=== PATIENT | male | born 1955 | race Caucasian/White ===

== ENCOUNTER → 2018-02-03 11:37 | Outpatient (REF) | payer BC, SELFPAY | LOC: LBN 11:37 | PROVIDERS: PCP Nurse Practitioner Family; Visit Provider Nurse Practitioner Family | DX: R19.7 Diarrhea, unspecified (principal) | CPT/HCPCS: 87329 ==

== ENCOUNTER 2018-03-18 08:01 | Outpatient (CLI) | payer BC, SELFPAY ==
[2018-03-18 09:43] LABS: Anion Gap 9.6 mmol/L (3-11); BUN 11 mg/dL (7-18); CO2 25.4 mmol/L (21.0-32.0); CREATININE 0.94 mg/dL (0.70-1.30); Calcium 8.3 mg/dL (8.5-10.1); Chloride 103 mmol/L (98-107); Cholesterol 231 mg/dL (50-200); Glucose 113 mg/dL (70-100); HDL Cholesterol 50 mg/dL (40-60); LDL CHOLESTEROL 148 mg/dL (<100); Potassium 4.3 mmol/L (3.5-5.1); Sodium 138 mmol/L (136-145); Triglyceride 287 mg/dL (30-150)
[2018-03-19 09:53] LABS: HIV-1/2 Ag & Ab Screen Negative (NEGAT)
[2018-03-21 13:19] LABS: Hepatitis C Ab w Rflx HCV PCR Negative (NEGAT)
== END 2018-03-18 08:21 ==
PROVIDERS: PCP Nurse Practitioner Family; Visit Provider Nurse Practitioner Family
DX: Z13.220 Encounter for screening for lipoid disorders (principal); Z13.228 Encounter for screening for other metabolic disorders; Z11.59 Encounter for screening for other viral diseases; Z11.4 Encounter for screening for human immunodeficiency virus [HIV]
CPT/HCPCS: 36415; 80048; 80061; 83721; 86803; 87389

== ENCOUNTER 2019-11-01 02:58 | Outpatient (CLI) | payer OTHER, SELFPAY ==
[2019-11-01 09:04] LABS: Bilirubin Negative (Negative); Blood Negative (Negative); Clarity Clear (Clear); Glucose Negative (Negative); Ketones Negative (Negative); Leukocyte Esterase Negative (Negative); Nitrite Negative (Negative); Urobilinogen 0.2 EU/dL (Up TO 0.2)
[2019-11-01 09:05] LABS: Abs Immature Grans 0.04 k/cumm (0.0-0.09); Absolute Basophil Count 0.04 k/cumm (0.0-0.2); Absolute Eosinophil Count 0.23 k/cumm (0.0-0.7); Absolute Lymphocyte Count 2.12 k/cumm (1.2-3.4); Absolute Monocyte Count 0.84 k/cumm (0.11-0.7); Absolute Neutrophil Count 3.26 k/cumm (1.2-6.7); Basophils % 0.6; Eosinophils % 3.5; HCT 48.1 % (40.0-50.0); HGB 16.4 g/dL (13.5-17.5); Immature Grans % 0.6 %; Lymphocytes % 32.5; Mean Corp. HGB Concentration 34.1 g/dL (32.0-36.0); Mean Corpuscular Hemoglobin 32.8 pg (27.0-33.0); Mean Corpuscular Volume 96.2 fL (80-95); Mean Platelet Volume 9.5 fL (8.0-11.0); Monocytes % 12.9; Neutrophils % 49.9; Platelet Count 250 x1000/uL (130-400); RBC Distribution Width 12.7 % (11.8-14.1); White Blood Cell Count 6.53 k/cumm (4.4-10.8)
[2019-11-01 09:26] LABS: Hemoglobin A1C 5.6 % (3.8-5.6)
[2019-11-01 09:55] LABS: ALT 74 U/L (16-63); AST 48 U/L (15-37); Albumin 4.2 g/dL (3.4-5.0); Alkaline Phosphatase 85 U/L (46-116); Anion Gap 9.9 mmol/L (3-11); BUN 9 mg/dL (7-18); Bilirubin, Total 0.7 mg/dL (0.2-1.0); CO2 30.1 mmol/L (21.0-32.0); CREATININE 1.02 mg/dL (0.70-1.30); Calcium 9.2 mg/dL (8.5-10.1); Calculated LDL 146 mg/dL (<100); Chloride 107 mmol/L (98-107); Cholesterol 225 mg/dL (<200); Glucose 113 mg/dL (74-106); HDL Cholesterol 47 mg/dL (40-60); Potassium 5.4 mmol/L (3.5-5.1); Sodium 147 mmol/L (136-145); TSH (W/Ref FT4) 1.76 uIU/mL (0.36-3.74); Total Protein 6.9 g/dL (6.4-8.2); Triglyceride 161 mg/dL (<150); Vitamin B12 198 pg/mL (193-986)
== END 2019-11-01 03:18 ==
PROVIDERS: PCP Nurse Practitioner Family; Visit Provider Nurse Practitioner Adult Health
DX: R73.01 Impaired fasting glucose (principal); E78.5 Hyperlipidemia, unspecified; R41.3 Other amnesia
CPT/HCPCS: 36415; 80053; 80061; 81003; 82607; 83036; 84443; 85025

== ENCOUNTER 2020-03-13 03:26 | Outpatient (CLI) | payer OTHER, SELFPAY ==
[2020-03-13 12:52] LABS: HCT 51.4 % (40.0-50.0); HGB 17.5 g/dL (13.5-17.5); MCH 32.3 pg (27.0-33.0); MPV 9.5 fL (8.0-11.0); Platelet Count 195 10^3/uL (130-400); RBC 5.41 10^6/uL (4.36-5.78); RDW 12.4 % (11.8-14.1); RDW-SD 43.4 fL; WBC 6.91 10^3/uL (4.4-10.8)
[2020-03-13 13:13] LABS: ALT 67 U/L (16-63); AST 50 U/L (15-37); Albumin 4.2 g/dL (3.4-5.0); Alkaline Phosphatase 88 U/L (46-116); Anion Gap 8.3 mmol/L (3-11); BUN 6 mg/dL (7-18); Bilirubin, Total 1.1 mg/dL (0.2-1.0); CO2 27.7 mmol/L (21.0-32.0); CREATININE 0.89 mg/dL (0.70-1.30); Calculated LDL 140 mg/dL (<100); Chloride 101 mmol/L (98-107); Cholesterol 221 mg/dL (<200); Glucose 112 mg/dL (74-106); HDL Cholesterol 46 mg/dL (40-60); Potassium 4.4 mmol/L (3.5-5.1); Sodium 137 mmol/L (136-145); Total Protein 6.9 g/dL (6.4-8.2); Triglyceride 178 mg/dL (<150)
== END 2020-03-13 03:46 ==
PROVIDERS: PCP Nurse Practitioner Adult Health; Visit Provider Nurse Practitioner Adult Health
DX: E78.5 Hyperlipidemia, unspecified (principal); E87.0 Hyperosmolality and hypernatremia; E87.5 Hyperkalemia; R79.89 Other specified abnormal findings of blood chemistry; R41.3 Other amnesia
CPT/HCPCS: 36415; 80053; 80061; 85027

== ENCOUNTER 2020-07-16 10:25 | Outpatient (CLI) | payer OTHER, SELFPAY ==
--- NOTE | 2020-07-16 10:15 | DI.RAD_ITS ---
EXAM: XR SHOULDER RT COMPLETE 2+V CLINICAL HISTORY: right shoulder pain. TECHNIQUE: 2D digital imaging was performed. COMPARISON: No exams were available for comparison FINDINGS: BONES: No acute fracture is present. No bony destructive lesion is seen. JOINTS: No dislocation present. There is moderate narrowing of the glenohumeral joint and mild spurri ng from the inferior humeral head and margin of the glenoid. AC joint is not optimally profiled. SOFT TISSUE: Normal. IMPRESSION: Moderate degenerative changes of the glenohumeral joint. DATA REPOSITORY: RADIATION DOSE DELIVERED:
== END 2020-07-16 10:45 ==
PROVIDERS: PCP Nurse Practitioner Adult Health; Referring Provider Nurse Practitioner Adult Health; Visit Provider Physician Assistant
DX: M19.011 Primary osteoarthritis, right shoulder (principal)
CPT/HCPCS: 73030

== ENCOUNTER 2020-08-02 02:42 | Outpatient (CLI) | payer OTHER, SELFPAY ==
--- NOTE | 2020-08-02 07:45 | DI.MRI_ITS ---
EXAM: MR UPPER JOINT RT WO CLINICAL HISTORY: possible RTC tear,BURSITIS,TENDONITIS,TENDONINOSIS,ARTHRITIS. TECHNIQUE: Multiplanar multisequence MRI was performed. COMPARISON: None. FINDINGS: Bones: There is no fracture or contusion pattern. There are multiple subchondral cysts in the glenoid, grea ter posteriorly and inferiorly. The acromioclavicular joint shows mild inferior spurring. There is a mild amount fluid in the subacromial subdeltoid bursa. There is a small glenohumeral joint effusi on. A subcoracoid effusion is present. Glenohumeral joint: There is joint space narrowing with cartilage thinning extending down to bone.. Rotator Cuff: There is no muscle atrophy. The supra and infraspinatus are intact which show mild thickening and edema..The subscapularis and te res minor are normal. Labrum and biceps anchor: The biceps tendon is located. The anchor is well maintained. The labrum shows degenerative changes. IMPRESSION: Severe degenerative changes of the glenohumeral joint. Supraspinatus and infraspinatus tendinosis. DATA REPOSITORY:
== END 2020-08-02 02:43 ==
LOC: DI 02:42
PROVIDERS: PCP Nurse Practitioner Adult Health; Visit Provider Student in an Organized Health Care Education/Training Program
DX: M19.011 Primary osteoarthritis, right shoulder (principal); M75.51 Bursitis of right shoulder; M67.813 Other specified disorders of tendon, right shoulder
CPT/HCPCS: 73221

== ENCOUNTER 2021-01-16 03:37 | Outpatient (CLI) | payer OTHER, SELFPAY ==
--- NOTE | 2021-01-16 09:00 | DI.RAD_ITS ---
Exam(s) RF JOINT INJECTION FLUORO GUID EXAM: RF JOINT INJECTION FLUORO GUID CLINICAL HISTORY: R SHOULDER INJ UNDER FLUORO,RTC TENDINITIS,PAIN,ARTHRITIS GH JOINT,M25.511 TECHNIQUE: Fluoroscopy provided. Radiologist not present. CONTRAST MATERIAL: None COMPARISON: No exams were available for comparison FINDINGS: Fluoroscopy was provided for Dr. Aparicio during right shoulder injection. Submitted image(s) reveal needle placement at the superior aspect of the medial humeral head. Intra- articular contrast noted. Please refer to the procedure report for complete details. Cumulative Dose: bryn Saeed=1.12 mGy IMPRESSION: RADIATION DOSE DELIVERED:
--- NOTE | 2021-01-16 14:52 | W.PROCNOTE ---
Date of service: 01/16/21 Time of Service: 14:52 Procedure Note Date of procedure: 01/16/21 Procedure: Right Shoulder Injection Surgeon/Proceduralist/Physician: Samuel Aparicio Procedure Diagnosis: Right Glenohumeral Arthritis Procedure Indications: Nael has had persistent pain of the RIGHT shoulder. Noninvasive measures have been tried. To serve as both diagnostic and therapeutic, an injection under fluoroscopy was recommended. I had discussed the risks of the procedure and the patient elected to proceed. Procedure Description: Nael was greeted in the flouroscopy room. The correct side was identified and the consent was reviewed with the patient and signed. The patient was then placed in the supine position on the fluoroscopy table. The RIGHT shoulder was then prepped with Chloraprep. The anterior injection starting point was identiifed by bony landmarks and fluoroscopy. The skin and soft tissue in the tract of the injection was anesthetized with 1% Lidocaine. A spinal needle was then inserted deep into the shoulder joint at the level of the recess between the glenoid and superior humeral head. A small amount of Omnipaque solution was injected to confirm intraarticular placement. Once confirmed, the shoulder was injected with 4cc of 0.5% Bupivicaine and 80mg of Depo-Medrol. A bandaid was placed on the injection site. The patient tolerated the procedure well and noted improvement in pre-injection pain.
[2021-01-16] MEDS: Bupivacaine 0.5% Pres-Free 10 ML VIAL IJ (15:03)
[2021-01-16] MEDS: Omnipaque 300 MG/ML 10 ML BTL IJ (15:04)
[2021-01-16] MEDS: methylPREDNISolone ACETATE 80 MG/ML VIAL IM (15:04)
== END 2021-01-16 03:57 ==
PROVIDERS: PCP Nurse Practitioner Adult Health; Visit Provider Student in an Organized Health Care Education/Training Program
DX: M19.011 Primary osteoarthritis, right shoulder (principal); M25.511 Pain in right shoulder
CPT/HCPCS: 20610; 77002; J1040

== ENCOUNTER 2021-01-16 15:39 | Outpatient (CLI) | payer OTHER, SELFPAY ==
--- NOTE | 2021-01-16 14:30 | DI.RAD_ITS ---
Exam(s) XR TOE LT THIRD EXAM: XR TOE LT THIRD CLINICAL HISTORY: pain s/p injury about 3 days ago, lt toe pain, M79.675. TECHNIQUE: 2D digital imaging was performed. COMPARISON: No exams were available for comparison FINDINGS: There is no oblique nondisplaced fracture on the medial aspect of base of the middle phalanx of the 3 rd toe. IMPRESSION: DATA REPOSITORY: RADIATION DOSE DELIVERED:
== END 2021-01-16 15:59 ==
PROVIDERS: PCP Nurse Practitioner Adult Health; Visit Provider Nurse Practitioner
DX: G89.11 Acute pain due to trauma (principal); M79.675 Pain in left toe(s); W22.8XXA Striking against or struck by other objects, initial encounter; Y99.8 Other external cause status
CPT/HCPCS: 73660

== ENCOUNTER 2021-02-07 03:52 | Outpatient (CLI) | payer OTHER, SELFPAY ==
--- NOTE | 2021-02-07 07:00 | DI.RAD_ITS ---
Exam(s) RF BARIUM SWALLOW EXAM: RF BARIUM SWALLOW CLINICAL HISTORY: dysphagia,PHARYNGOSOPHAGEAL,R13.14 TECHNIQUE: 2D and realtime digital imaging was performed. CONTRAST MATERIAL: Oral barium Oral water soluble contrast was administered. COMPARISON: CR CHEST 2 VIEWS PA,LAT from 10/15/2016 CR CHEST 2 VIEWS PA,LAT from 10/15/2016 FINDINGS: CHEST X-RAY: The heart and pulmonary vasculature are within normal limits. The lungs are clear. No pl eural effusion or pneumothorax is present. The bones are within normal limits fo the patient's age. ESOPHAGRAM: The esophagus is patent with no evidence for erosions, fold thickening, strictures, or ma sses. With regards to the motility, there is a normal primary stripping wave. No tertiary contraction s were noted. There is no hiatal hernia or gastroesophageal reflux. There is penetration of contrast but no evidence of aspiration during the examination. IMPRESSION: Unremarkable esophagram. RADIATION DOSE DELIVERED: Christopher=28.8 mGy
[2021-02-07] MEDS: Barium Sulfate 700 MG TAB PO ×2 (09:47→09:48)
[2021-02-07] MEDS: Simethicone/Sod Bicarb/Cit Ac, 4 gram PACKET 1 PACKET PO (09:49)
[2021-02-07] MEDS: Barium Sulfate 60% W/V 355 ML BTL PO (09:53)
== END 2021-02-07 04:12 ==
PROVIDERS: PCP Nurse Practitioner Adult Health; Visit Provider Otolaryngology
DX: R13.14 Dysphagia, pharyngoesophageal phase (principal)
CPT/HCPCS: 74221; J3490

== ENCOUNTER 2021-04-24 14:25 | Outpatient (CLI) | payer OTHER, SELFPAY ==
--- NOTE | 2021-04-24 11:00 | DI.RAD_ITS ---
Exam(s) XR CHEST 2V PA LATERAL EXAM: XR CHEST 2V PA LATERAL CLINICAL HISTORY: Cough and chest tightness, COVID negative R07.89 CHEST PAIN. TECHNIQUE: 2D digital imaging was performed. COMPARISON: CR,RF RF BARIUM SWALLOW from 02/07/2021 FINDINGS: Heart size is normal. The mediastinum is not widened. Lungs are clear. No infiltrates nor pleural effusions. IMPRESSION: No acute pulmonary findings. DATA REPOSITORY: RADIATION DOSE DELIVERED:
== END 2021-04-24 14:45 ==
LOC: DI 04-28 14:27
PROVIDERS: PCP Nurse Practitioner Adult Health; Visit Provider Family Medicine
DX: R07.89 Other chest pain (principal); R05.8 Other specified cough
CPT/HCPCS: 71046

== ENCOUNTER 2021-07-23 03:28 | Outpatient (CLI) | payer OTHER, SELFPAY ==
[2021-07-23 08:54] LABS: HCT 52.1 % (40.0-50.0); HGB 17.8 g/dL (13.5-17.5); MCH 33.1 pg (27.0-33.0); MCHC 34.2 % (32.0-36.0); Platelet Count 243 10^3/uL (130-400); RBC 5.37 10^6/uL (4.36-5.78); RDW 12.4 % (11.8-14.1); RDW-SD 44.2 fL; WBC 6.85 10^3/uL (4.4-10.8)
[2021-07-23 10:06] LABS: ALT 58 U/L (16-63); AST 47 U/L (15-37); Albumin 3.9 g/dL (3.4-5.0); Alkaline Phosphatase 89 U/L (46-116); Anion Gap 10.9 mmol/L (3-11); BUN 8 mg/dL (7-18); Bilirubin, Total 0.9 mg/dL (0.2-1.0); CO2 27.1 mmol/L (21.0-32.0); CREATININE 0.9 mg/dL (0.70-1.30); Calculated LDL 133 mg/dL (<100); Chloride 101 mmol/L (98-107); Cholesterol 212 mg/dL (<200); Glucose 121 mg/dL (74-106); HDL Cholesterol 50 mg/dL (40-60); Potassium 4.6 mmol/L (3.5-5.1); Sodium 139 mmol/L (136-145); Total Protein 6.8 g/dL (6.4-8.2); Triglyceride 149 mg/dL (<150)
[2021-07-25 15:56] LABS: Lab Add On Test DONE
[2021-07-25 16:11] LABS: Hemoglobin A1C 5.5 % (<5.7)
== END 2021-07-23 03:29 | disposition home or self-care (01) ==
PROVIDERS: PCP Nurse Practitioner Adult Health; Visit Provider Nurse Practitioner Adult Health
DX: E53.8 Deficiency of other specified B group vitamins (principal); E87.0 Hyperosmolality and hypernatremia; E87.5 Hyperkalemia; R79.89 Other specified abnormal findings of blood chemistry; Z72.89 Other problems related to lifestyle; R73.01 Impaired fasting glucose
CPT/HCPCS: 36415; 80053; 80061; 85027; 83036

== ENCOUNTER → 2021-09-19 10:14 | Outpatient (BNVA) | payer OTHER, MEDICARE, SELFPAY | PROVIDERS: PCP Nurse Practitioner Adult Health; Referring Provider Nurse Practitioner Adult Health; Visit Provider Student in an Organized Health Care Education/Training Program | DX: R69 Illness, unspecified (principal) | CPT/HCPCS: 99213 ==

== ENCOUNTER 2021-10-01 10:40 | Day surgery (SDC) | payer OTHER, MEDICARE, SELFPAY ==
[2021-10-01 11:02] VITALS: BP 136/84; PULSE 86; RESP 16; TEMP 36.4; O2SAT 98
--- NOTE | 2021-10-01 13:06 | PDOC.DSDIS_ITS ---
Discharge Plan Disposition Patient Disposition: HOME Condition: Good Discharge Details Reason For Visit: LIF cyst excision Attending Provider: Samuel Aparicio Primary Care Provider: Becka Yang Home Meds and New Rx's Prescriptions: New acetaminophen 500 mg tablet 1,000 mg PO TID Qty: 90 0RF ibuprofen 600 mg tablet 600 mg PO TID PRN (Reason: pain) Qty: 90 0RF Continued B12 5,000-100 mcg lozenge 5,000 tomas SL DAILY 0RF thiamine HCl (vitamin B1) 100 mg tablet 100 mg PO DAILY Qty: 90 3RF lidocaine HCl [Aspercreme (lidocaine HCl)] 4 % cream 1 applic topical DAILY PRN0RF cyanocobalamin (vitamin B-12) 1,000 mcg/mL kit 1,000 mcg subcut QMONTH Qty: 1 11RF Rx Instructions: Vitamin B12 deficiency multivitamin [Daily Vitamin] 1 EACH tablet 1 ea PO DAILY 0RF lansoprazole [Prevacid] 30 mg capsule,delayed release(DR/EC) 30 mg PO BID Qty: 180 0RF Rx Instructions: 30-min to 1 hour before breakfast & 30-min to 1 hour before dinner mirtazapine 15 mg tablet 15 mg PO QHS Qty: 90 3RF cyclobenzaprine 5 mg tablet 5 mg PO BID PRN (Reason: muscle spasm) Qty: 90 3RF Discontinued celecoxib [Celebrex] 100 mg capsule 100 mg PO BID PRN0RF ibuprofen 200 MG tablet 200 mg PO PRN 0RF Discharge Instructions Additional Instructions: Cyst Excision Discharge Instructions Activity: You should keep the hand elevated as much as possible for the first few days. You may use the other fingers as tolerated but avoid trying to do too much too soon. You may perform light activities with the hand. Dressing: You may remove the dressing after 48 hours and replace with a band- aid. Medications: - You should take Tylenol and Ibuprofen for baseline pain control. - You may apply ice over the finger. Follow-up: 7-10 days Referrals: Samuel Aparicio MD [ [facility] STAFF PHYSICIAN] - Activity:: Activity as Tolerated Remove Dressings/Wound Care:: 48 hours Shower/Bathe:: 48 hours Diet:: As Tolerated Discharge Orders Discharge Orders: Discharge Order (Routine); Ordered 10/01/21 Ordered By: Navarro Bravo DS: Diagnosis Discharge Diagnosis (1) Digital mucous cyst of finger of left hand: Status: Acute
[2021-10-01] MEDS: Sodium Bicarbonate 50 MEQ/50 ML VIAL (13:36)
[2021-10-01 13:52] VITALS: BP 127/83; PULSE 81; RESP 16; TEMP 36.4; O2SAT 99
--- NOTE | 2021-10-01 21:28 | W.PM.OP ---
Date of service: 10/01/21 Time of Service: 13:20 Operative Note Operative Note DATE OF PROCEDURE: 10/01/21 PRE-OP DIAGNOSIS: Left index finger ganglion cyst POST-OP DIAGNOSIS: same PROCEDURE: Ganglion cyst Excision -left index finger SURGEON: Samuel Aparicio ANESTHESIA TYPE: Local By Surgeon ESTIMATED BLOOD LOSS: 0 PATHOLOGY: none sent COMPLICATIONS: None Patient was transported to: same day Patient's condition: stable Indications: I have seen Nael in clinic for symptoms of a mass about the middle phalanx of the left index finger which appear to be a ganglion cyst The mass persisted and caused pain to direct contact and with use. The diagnosis of a ganglion cyst was made. The symptoms had not responded to conservative measures. I discussed cyst excision with the patient. I reviewed the risks of the procedure to include, but not limited to, bleeding, infection, pain, stiffness, recurrence, damage to nerves or vessels. Despite these risks, the patient elected to proceed. Findings: There was a cyst of the middle phalanx arising from the extensor tendon complex between the lateral band and the edge of the extensor tendon. The cyst and its capsule was removed. Procedure Description: Nael was greeted in the preoperative holding area where the correct side was identified and marked. The consent was reviewed with the patient and signed. All questions were answered. He was taken back to the operating room. The patient was placed into the supine position on the operating room table with the left arm on an arm board. All bony prominences were well padded. No prophylactic antibiotics were administered since this was a clean, elective hand surgical case. The left arm was then prepped with Chloraprep and draped in a standard fashion with stockinette and extremity drape. A timeout to confirm correct identity, side and site, procedure, allergies, anesthesia, and medical concerns was performed. A digital block was then performed using 2% lidocaine with epinephrine and buffered with sodium bicarbonate. This was allowed time to set up completely and was tested before proceeding with the case. A longitudinal incision was then made overlying the cyst. The skin was incised sharply. Full-thickness flaps were then elevated to expose the cyst. The cyst capsule was then removed with a rongeur and followed to its base which seemed to arise from the synovium surrounding the extensor mechanism. It did move deeply but did not seem to involve the PIP joint or DIP joint. After removal of all the cyst contents I did use a synovial rongeur to roughen the base of this area to prevent recurrence. The finger was irrigated and once again checked to make sure that all components of the cyst were removed. The skin was then closed using a #4-0 nylon in interrupted fashion. The finger was dressed with Xeroform, 4 x 4, conform dressing. The patient tolerated the procedure well and was returned to the Same Day Surgery area in a stable condition suffering no known complication.
== END 2021-10-01 14:11 | disposition home or self-care (01) ==
PROVIDERS: PCP Nurse Practitioner Adult Health; Visit Provider Student in an Organized Health Care Education/Training Program
PROC: (CPT 26160; principal; 2021-10-01 14:30)
DX: M67.442 Ganglion, left hand (principal)
CPT/HCPCS: 26160

== ENCOUNTER 2021-11-05 14:06 | Outpatient (CLI) | payer OTHER, MEDICARE, SELFPAY ==
--- NOTE | 2021-11-05 13:45 | DI.RAD_ITS ---
Exam(s) XR SHOULDER LT COMPLETE 2+V EXAM: XR SHOULDER LT COMPLETE 2+V CLINICAL HISTORY: LEFT SHOULDER PAIN. TECHNIQUE: 2D digital imaging was performed. COMPARISON: CR XR SHOULDER RT COMPLETE 2+V from 07/16/2020 FINDINGS: Two views There is no evidence of fracture or dislocation. However, there is advanced narrowing of the glenohu meral joint and there is an osteophyte on the inferior articular surface of the humeral head. Subacr omial space is not diminished and there are no calcifications in the subacromial space. Bone density is normal. No osseous lesions. Mild degenerative changes in the AC joint IMPRESSION: Advanced degenerative changes in the left glenohumeral joint. DATA REPOSITORY: RADIATION DOSE DELIVERED:
== END 2021-11-05 14:07 | disposition home or self-care (01) ==
LOC: DIORS 14:06
PROVIDERS: PCP Nurse Practitioner Adult Health; Referring Provider Nurse Practitioner Adult Health; Visit Provider Student in an Organized Health Care Education/Training Program
DX: M19.012 Primary osteoarthritis, left shoulder
CPT/HCPCS: 99213; 99214; 73030

== ENCOUNTER 2021-11-20 18:43 | Outpatient (CLI) | payer OTHER, MEDICARE, SELFPAY ==
--- NOTE | 2021-11-20 08:30 | DI.RAD_ITS ---
Exam(s) RF JOINT INJECTION FLUORO GUID EXAM: RF JOINT INJECTION FLUORO GUID CLINICAL HISTORY: L SHOULDER PAIN, arthritis lt glenohumeral joint, M19.012 TECHNIQUE: Fluoroscopy provided. Radiologist not present. CONTRAST MATERIAL: None COMPARISON: No exams were available for comparison FINDINGS: Fluoroscopy was provided for therapeutic left shoulder injection. Submitted image(s) reveal needle placement in the superomedial aspect joint Please refer to the procedure report for complete details. Cumulative Dose: Ka,r=not given mGy IMPRESSION: RADIATION DOSE DELIVERED:
--- NOTE | 2021-11-20 14:00 | W.PROCNOTE ---
Date of service: 11/20/21 Time of Service: 13:40 Procedure Note Date of procedure: 11/20/21 Procedure: Left Shoulder Injection Surgeon/Proceduralist/Physician: Samuel Aparicio Procedure Diagnosis: Left Shoulder Arthritis Procedure Indications: Nael has had persistent pain of the LEFT shoulder. Noninvasive measures have been tried. To serve as both diagnostic and therapeutic, an injection under fluoroscopy was recommended. I had discussed the risks of the procedure and the patient elected to proceed. Procedure Description: Nael was greeted in the flouroscopy room. The correct side was identified and the consent was reviewed with the patient and signed. The patient was then placed in the supine position on the fluoroscopy table. The LEFT shoulder was then prepped with Chloraprep. The anterior injection starting point was identiifed by bony landmarks and fluoroscopy. The skin and soft tissue in the tract of the injection was anesthetized with 1% Lidocaine. A spinal needle was then inserted deep into the shoulder joint at the level of the recess between the glenoid and superior humeral head. A small amount of Omnipaque solution was injected to confirm intraarticular placement. Once confirmed, the shoulder was injected with 4cc of 0.5% Bupivicaine and 80mg of Depo-Medrol. A bandaid was placed on the injection site. The patient tolerated the procedure well and noted improvement in pre-injection pain.
[2021-11-20] MEDS: Bupivacaine 0.5% Pres-Free 30 ML VIAL IJ (15:36)
[2021-11-20] MEDS: methylPREDNISolone ACETATE 80 MG/ML VIAL IM (15:36)
[2021-11-20] MEDS: Omnipaque 300 MG/ML 10 ML BTL IJ (15:37)
== END 2021-11-20 19:03 ==
PROVIDERS: PCP Nurse Practitioner Adult Health; Visit Provider Student in an Organized Health Care Education/Training Program
DX: M19.012 Primary osteoarthritis, left shoulder (principal); M25.512 Pain in left shoulder
CPT/HCPCS: 20610; 77002; J1040

== ENCOUNTER 2021-11-28 00:08 | Outpatient (CLI) | payer OTHER, MEDICARE, SELFPAY ==
--- NOTE | 2021-11-28 06:15 | DI.US_ITS ---
Exam(s) US ABDOMEN EXAM: US ABDOMEN CLINICAL HISTORY: assess for fatty liver,ELEVATED LFT'S,ALCOHOL USE,R79.89,Z72.89 TECHNIQUE: Ultrasound abdomen performed using standard protocol. COMPARISON: US ABDOMEN ULTRASOUND (P) from 03/28/2014 FINDINGS: ABDOMINAL AORTA AND IVC: Visualized portions normal caliber. PANCREAS: Normal where visualized. LIVER: Increased echogenicity of the liver consistent with fatty infiltration. The liver measures 16 .3 cm long. Hepatopedal flow in the Portal Vein. GALLBLADDER:Several gallstones are present. No evidence of wall thickening. No pericholecystic fluid identified. BILIARY SYSTEM: Common bile duct measures < 7 mm. No intrahepatic biliary ductal dilation. ARRIOLA'S SIGN: Negative. KIDNEYS: Kidneys are symmetric in size. No evidence of renal calculi. No evidence of hydronephrosis. No renal mass or cyst identified. SPLEEN: Not enlarged. ASCITES: None seen. IMPRESSION: 1. Hepatic steatosis. 2. Cholelithiasis. No sonographic evidence of acute cholecystitis. DATA REPOSITORY:
== END 2021-11-28 00:28 ==
PROVIDERS: PCP Nurse Practitioner Adult Health; Visit Provider Nurse Practitioner Adult Health
DX: R79.89 Other specified abnormal findings of blood chemistry (principal); F10.10 Alcohol abuse, uncomplicated; K76.0 Fatty (change of) liver, not elsewhere classified; K80.20 Calculus of gallbladder without cholecystitis without obstruction
CPT/HCPCS: 76700

== ENCOUNTER 2021-12-14 11:22 | Emergency (ER) | payer OTHER, MEDICARE, SELFPAY ==
[2021-12-14 11:24] VITALS: BP 131/89; PULSE 111; RESP 16; TEMP 36.8; O2SAT 97
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
--- NOTE | 2021-12-14 11:45 | DI.CT_ITS ---
Exam(s) CT ABDOMEN PELVIS WO EXAM: CT ABDOMEN PELVIS WO CLINICAL HISTORY: LLQ/RLQ abd pain, r/o diverticulitis, kidney stone. TECHNIQUE: Imaging Protocol: Axial computed tomography images with coronal and sagittal reformatted images were created and reviewed CONTRAST MATERIAL: Intravenous: none Oral: Yes. Oral contrast was administered for bowel opacification. COMPARISON: CT ABD PELVIS WITH CONTRAST from 03/14/2014 FINDINGS: VISUALIZED LUNG BASES: No nodules nor pleural effusions evident. ABDOMEN: There is no ascites. LIVER: There are no obvious focal hepatic lesions evident of this noninfused study. GALLBLADDER/BILIARY: Multiple gallstones are noted in the gallbladder lumen. There is no gallbladder wall edema nor pericholecystic fluid. CBD is not dilated. PANCREAS: No evidence of pancreatic mass nor dilatation of the pancreatic duct. SPLEEN: Spleen is not enlarged. No obvious intrasplenic lesions. ADRENALS: There are no significant adrenal masses. KIDNEYS:No cysts evident. No solid renal masses. No calculi nor hydronephrosis. . ABDOMINAL AORTA: Abdominal aorta is not enlarged. LYMPH NODES: There is no retroperitoneal nor paraaortic adenopathy. ABDOMINAL WALL: No evidence of significant anterior abdominal wall nor inguinal hernia. GI: There is no evidence of bowel obstruction, free air, nor abscess. PELVIS: LYMPH NODES: There is no intrapelvic nor inguinal adenopathy. GI: The appendix is surgically absent.Sigmoid is redundant. There is no evidence of sigmoid divertic ulitis. URINARY BLADDER: No calculi nor obvious masses evident REPRODUCTIVE: Prostate gland is not enlarged. Seminal vesicles unremarkable. No obturator adenopath y. OSSEOUS: No significant osseous lesions. Chronic disc space narrowing at L3-4 level noted. IMPRESSION: 1. Cholelithiasis. There are multiple gallstones in the gallbladder lumen. There is no gallbladder wall edema to suggest acute cholecystitis and the CBD is not dilated. 2. The appendix is surgically absent. No evidence of abscess. 3. Other findings as above. RADIATION DOSE DELIVERED: 954.68mGy.cm Total DLP DATA REPOSITORY: All CT scans at this facility are submitted to the National Radiology Data Registry (NRDR) Dose Index Registry (DIR) with the [employer] ([employer]). RADIATION OPTIMIZATION: All CT scans at this facility use at least one of these dose optimization te chniques: automated exposure control; mA and/or kV adjustment per patient size (includes targeted exa ms where dose is matched to clinical indication); or iterative reconstruction.
[2021-12-14] MEDS: HYDROmorphone 2 MG/ML VIAL 0.5 MG IVP (12:03)
[2021-12-14] MEDS: Normal Saline 1,000 ML 1000 ML IV (12:04)
[2021-12-14 12:06] LABS: Abs Immature Grans 0.06 10^3/uL (0.0-0.06); Absolute Basophil Count 0.07 10^3/uL (0.0-0.2); Absolute Eosinophil Count 0.15 10^3/uL (0.0-0.7); Absolute Lymphocyte Count 2.48 10^3/uL (1.2-3.4); Absolute Monocyte Count 0.95 10^3/uL (0.1-0.8); Absolute Neutrophil Count 4.17 10^3/uL (1.2-6.7); Basophils % 0.9; Eosinophils % 1.9; HCT 47.9 % (40.0-50.0); Immature Grans % 0.8; Lymphocytes % 31.5; MCH 33.7 pg (27.0-33.0); MCHC 35.5 % (32.0-36.0); MCV 95 fL (80-95); MPV 8.9 fL (8.0-11.0); Monocytes % 12.1; Neutrophils % 52.8; Platelet Count 278 10^3/uL (130-400); RBC 5.04 10^6/uL (4.36-5.78); RDW 12.6 % (11.8-14.1); WBC 7.88 10^3/uL (4.4-10.8)
[2021-12-14] MEDS: Breeza Beverage 473 ML BTL PO ×2 (12:16→12:17)
[2021-12-14 12:19] LABS: ALT 63 U/L (16-63); AST 56 U/L (15-37); Albumin 3.6 g/dL (3.4-5.0); Alkaline Phosphatase 101 U/L (46-116); Anion Gap 12.8 mmol/L (3-11); BUN 6 mg/dL (7-18); Bilirubin, Total 0.5 mg/dL (0.2-1.0); CO2 23.2 mmol/L (21.0-32.0); CREATININE 0.7 mg/dL (0.70-1.30); Calcium 8.7 mg/dL (8.5-10.1); Chloride 98 mmol/L (98-107); Glucose 111 mg/dL (74-106); Lipase 50 U/L (73-393); Sodium 134 mmol/L (136-145); Total Protein 6.7 g/dL (6.4-8.2)
--- NOTE | 2021-12-14 14:23 | DI.VRAD_ITS ---
PROCEDURE INFORMATION: Exam: CT Abdomen And Pelvis Without Contrast Exam date and time: 12/14/2021 1:48 PM Age: 66 years old Clinical indication: Pain; Other: Rlq, llq; Prior surgery; Surgery date: 6+ months; Surgery type: Appendectomy TECHNIQUE: Imaging protocol: Computed tomography of the abdomen and pelvis without contrast. Radiation optimization: All CT scans at this facility use at least one of these dose optimization techniques: automated exposure control; mA and/or kV adjustment per patient size (includes targeted exams where dose is matched to clinical indication); or iterative reconstruction. COMPARISON: US ABDOMEN 11/28/2021 8:45 AM FINDINGS: Lungs: There is subpleural atelectasis of the dependent portions of the lungs. Lung bases are clear. Liver: There is enlargement of the liver, measuring 19 cm. There is a diffuse decrease in hepatic parenchymal density, consistent with fatty infiltration. The liver is otherwise unremarkable. Gallbladder and bile ducts: Multiple calcified gallstones are present. The gallbladder is otherwise unremarkable. There is no evidence of biliary ductal dilation. Pancreas: The pancreas is normal. Spleen: The spleen is normal. Adrenal glands: The adrenal glands are normal. Kidneys and ureters: The right kidney is normal. The right ureter is normal. The left ureter is normal. The left kidney is normal. Stomach and bowel: No bowel obstruction or significant bowel wall thickening. There is mildly excessive colonic stool content. Appendix: There has been an appendectomy. Intraperitoneal space: There is no evidence of free intraperitoneal or pelvic fluid. There is no free intraperitoneal air. Vasculature: The arterial vasculature demonstrates diffuse mild atherosclerotic calcification. Lymph nodes: There is no evidence of lymphadenopathy. Urinary bladder: The bladder is normal. Reproductive: The prostate and seminal vesicles are normal. Bones/joints: No acute skeletal pathology. Moderate multilevel degenerative changes of the spine, as manifested by multilevel anterior osteophytes and multilevel decrease in intervertebral disc space. Soft tissues: There is a nonobstructing right inguinal hernia. There is a nonobstructing left inguinal hernia. No acute body wall soft tissue findings. IMPRESSION: 1. No acute abdominopelvic pathology. 2. Incidental findings as above. Dictated and Authenticated by: Yoel Mike MD. Ordering:PARAS Jonas MD
[2021-12-14 14:35] VITALS: BP 140/80; PULSE 79; TEMP 35.9; O2SAT 98
[2021-12-14] MEDS: diazePAM 5 MG TAB PO (14:45)
[2021-12-14 14:55] LABS: Bilirubin Negative (Negative); Blood Negative (Negative); Clarity Clear (Clear); Glucose Negative (Negative); Ketones Negative (Negative); Leukocyte Esterase Negative (Negative); Nitrite Negative (Negative); Specific Gravity 1.015 (1.005-1.025); Urobilinogen 0.2 EU/dL (Up TO 0.2); pH 6.5 (5-8)
[2021-12-14] MEDS: diazePAM 5 MG TAB 15 MG PO (16:20)
== END 2021-12-14 16:20 | disposition home or self-care (01) ==
PROVIDERS: Emergency Provider Physician Assistant; PCP Nurse Practitioner Adult Health
DX: M62.838 Other muscle spasm (principal); Z90.49 Acquired absence of other specified parts of digestive tract; K80.20 Calculus of gallbladder without cholecystitis without obstruction
CPT/HCPCS: 36415; 80053; 83690; 96361; 96374; 99284; 99285; 74176; 81003; 85025; J3490

== ENCOUNTER 2022-01-16 11:48 | Outpatient (CLI) | payer OTHER, MEDICARE, SELFPAY ==
--- NOTE | 2022-01-16 11:45 | RT.EKG_ITS ---
APPROVED REPORT Exam: Resting ECG Reason for Exam: Dizziness Patient Location: O HR:105 bpm ECG Measurements Heart Rate 105 AXIS NV 164 P 65 QRSd 87 QRS 65 QT 356 T 58 QTc 471 Conclusion Sinus tachycardia...rate> 99 Low voltage, extremity leads...all extremity leads <0.5mV
== END 2022-01-16 11:49 | disposition home or self-care (01) ==
LOC: DI.CM 11:48
PROVIDERS: PCP Nurse Practitioner Adult Health; Visit Provider Physician Assistant
DX: R42 Dizziness and giddiness (principal); R94.31 Abnormal electrocardiogram [ECG] [EKG]; R00.0 Tachycardia, unspecified
CPT/HCPCS: 93010

== ENCOUNTER 2022-01-16 12:31 | Emergency (ER) | payer OTHER, MEDICARE, SELFPAY ==
[2022-01-16 13:07] VITALS: BP 139/86; PULSE 105; RESP 14; TEMP 36.9; O2SAT 99
--- NOTE | 2022-01-16 14:00 | DI.RAD_ITS ---
Exam(s) XR PORTABLE CHEST AP EXAM: XR PORTABLE CHEST AP CLINICAL HISTORY: unsteady gait. TECHNIQUE: 2D digital imaging was performed. COMPARISON: CR XR CHEST 2V PA LATERAL from 04/24/2021 FINDINGS: LUNGS: Clear. No pleural abnormality seen. HEART: Normal. MEDIASTINUM: Normal. OTHER FINDINGS: None. IMPRESSION: No acute pulmonary findings. DATA REPOSITORY: RADIATION DOSE DELIVERED: Total DLP
--- NOTE | 2022-01-16 14:07 | CMPROGNOTE_ITS ---
- If Service Date Differs Date of service: 01/16/22 Time of Service: 14:07 Care Management Progress Note Pt. reports daily drinking moderate severity (AUDIT 18) and cannabis nightly before bed. We discussed combined effects and risks related to 4 or more drinks per day with age as a factor. Pt reports he has been thinking about quitting. Pt notes he and his quit drinking for a year some time ago and he is planning to do that again. Resources for support were discussed and Pt was pr ovided with contact information for [facility].
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
[2022-01-16] MEDS: Normal Saline 1,000 ML 1000 ML IV (15:05)
[2022-01-16 15:24] LABS: Abs Immature Grans 0.06 10^3/uL (0.0-0.06); Absolute Basophil Count 0.06 10^3/uL (0.0-0.2); Absolute Eosinophil Count 0.06 10^3/uL (0.0-0.7); Absolute Lymphocyte Count 1.31 10^3/uL (1.2-3.4); Absolute Monocyte Count 1.27 10^3/uL (0.1-0.8); Absolute Neutrophil Count 6.87 10^3/uL (1.2-6.7); Basophils % 0.6; Eosinophils % 0.6; HCT 44.5 % (40.0-50.0); HGB 16.2 g/dL (13.5-17.5); Immature Grans % 0.6; Lymphocytes % 13.6; MCHC 36.4 % (32.0-36.0); MCV 93 fL (80-95); MPV 8.8 fL (8.0-11.0); Monocytes % 13.2; Neutrophils % 71.4; Platelet Count 324 10^3/uL (130-400); RBC 4.77 10^6/uL (4.36-5.78); RDW 12.2 % (11.8-14.1); RDW-SD 42.3 fL; WBC 9.63 10^3/uL (4.4-10.8)
[2022-01-16 15:41] LABS: INR 1.1 (0.9-1.1); Prothrombin Time 11.3 sec (9.3-11.0)
--- NOTE | 2022-01-16 15:45 | DI.MRI_ITS ---
Exam(s) MR BRAIN WO EXAM: MR BRAIN WO CLINICAL HISTORY: ataxic gait for 2 weeks, paresthesias hands feet TECHNIQUE: Multiplanar multisequence MRI of the brain was performed. COMPARISON: No exams were available for comparison FINDINGS: VENTRICLES AND EXTRA AXIAL SPACES: Normal in size and morphology for the patient's age. MIDLINE SHIFT: None. CEREBRAL PARENCHYMA: No focus of restricted diffusion to suggest acute infarct. No space-occupying le ferny identified. HEMORRHAGE: None. BRAINSTEM/CEREBELLUM: Normal. CALVARIUM: Normal. VISUALIZED PARANASAL SINUSES/MASTOIDS:Clear. [place]: Normal flow void. PITUITARY GLAND: There is a partially empty sella. OTHER FINDINGS: None. IMPRESSION: 1. No acute intracranial process. 2. Results of this exam have been verbally communicated with provider. DATA REPOSITORY:
--- NOTE | 2022-01-16 15:45 | DI.MRI_ITS ---
Exam(s) MR ANGIO BRAIN WO CLINICAL HISTORY: ataxic gait, paresthesia hands feet. TECHNIQUE: Multiplanar multisequence MRA of the brain was performed. COMPARISON: None. FINDINGS: Carotid Arteries: No aneurysm, occlusion or significant stenosis. Anterior Cerebral Arteries: Right: No aneurysm, occlusion or significant stenosis. There is a hypoplastic right A1 segment. Left: No aneurysm, occlusion or significant stenosis. Middle Cerebral Arteries: Right: No aneurysm, occlusion or significant stenosis. Left: No aneurysm, occlusion or significant stenosis. Posterior Cerebral Arteries: Right: No aneurysm, occlusion or significant stenosis. The right STUDIO SALES ASSOCIATE arises predominantly from the P COM. This is a normal variant. Left: No aneurysm, occlusion or significant stenosis. Vertebral Arteries: Right: No aneurysm, occlusion or significant stenosis. Left: No aneurysm, occlusion or significant stenosis. Basilar Artery: No aneurysm, occlusion or significant stenosis. IMPRESSION: 1. No evidence of significant stenosis or occlusion on this MRA of the brain. 2. Results of this exam have been verbally communicated with provider. DATA REPOSITORY:
--- NOTE | 2022-01-16 15:45 | DI.MRI_ITS ---
Exam(s) MR ANGIO NECK WO EXAM: MR ANGIO NECK WO CLINICAL HISTORY: ataxic gait, paresthesias hands and feet. TECHNIQUE: Multiplanar multisequence MRA of the Neck was performed. COMPARISON: No exams were available for comparison FINDINGS: Common Carotid: Right: No dissection, occlusion or significant stenosis. Left: No dissection, occlusion or significant stenosis. External Carotid: Right: No evidence of occlusion or significant stenosis. Left: No evidence of occlusion or significant stenosis. Internal Carotid: Right: No dissection, occlusion or significant stenosis. Left: No dissection, occlusion or significant stenosis. Vertebral Artery: Right: No dissection, occlusion or significant stenosis. There is a hypoplastic right vertebral arter y which terminates at the PICA. The visualized right vertebral artery is narrow through its entire c ourse without abrupt caliber change. This is likely a normal variant. Left: No dissection, occlusion or significant stenosis. IMPRESSION: 1. No evidence of dissection, occlusion or significant stenosis. 2. 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 This is likely a ladan l variant. 3. Results of this exam have been verbally communicated with provider. DATA REPOSITORY:
[2022-01-16 15:49] LABS: ALT 49 U/L (16-63); AST 33 U/L (15-37); Albumin 3.5 g/dL (3.4-5.0); Alkaline Phosphatase 103 U/L (46-116); BUN 7 mg/dL (7-18); CREATININE 0.8 mg/dL (0.70-1.30); Calcium 8.7 mg/dL (8.5-10.1); Chloride 92 mmol/L (98-107); Glucose 125 mg/dL (74-106); Magnesium 1.7 mg/dL (1.8-2.4); Potassium 3.5 mmol/L (3.5-5.1); Sodium 127 mmol/L (136-145); TSH (W/Ref FT4) 1.87 uIU/mL (0.36-3.74); Total Protein 6.5 g/dL (6.4-8.2); Troponin I < 50 ng/L (<or=60)
[2022-01-16 15:52] LABS: Bilirubin Negative (Negative); Blood Negative (Negative); Clarity Clear (Clear); Glucose Negative (Negative); Ketones Negative (Negative); Leukocyte Esterase Negative (Negative); Nitrite Negative (Negative); Specific Gravity 1.015 (1.005-1.025); Urobilinogen 0.2 EU/dL (Up TO 0.2)
[2022-01-16 16:01] LABS: ETHANOL BLOOD < 3.0 mg/dL (<10)
[2022-01-16 16:06] LABS: *AMPHETAMINES SCREEN URINE Negative (Negative); *BARBITURATES SCREEN URINE Negative (Negative); *BENZODIAZEPINES SCREEN URINE Negative (Negative); Cannabinoids THC Positive (Negative); Cocaine Screen,Urine Negative (Negative); METHADONE URINE SCREEN Negative (Negative); OPIATES URINE SCREEN Negative (Negative); Tricyclic Antidepressants Negative (Negative)
[2022-01-16 16:30] LABS: Folate 7.5 ng/mL (8.6-20.0); Vitamin B12 > 2000 pg/mL (193-986)
[2022-01-16 17:11] VITALS: BP 165/92; PULSE 87; TEMP 36.1; O2SAT 99
--- NOTE | 2022-01-16 17:31 | ED.PROG_ITS ---
Date of service: 01/16/22 Time of Service: 17:32 Medical Decision Making Patient was initially seen by Dr. Heather Bhatti, please see his documentation regarding initial ED presentation and course. Patient was signed out with plan to follow-up on MRI brain and diagnostic labs. MRI of the brain and MRA of the brain and neck was interpreted by radiology as negative. Labs reviewed and patient is hyponatremic with sodium of 127. This has decreased from recent prior of 134 about a month ago. Patient also with mild hypomagnesemia at 1.7. Folate is low at 7.5. I spoke with the patient and he does note poor appetite over the past 6 months with unintentional weight loss with 45 pounds. He notes he does not eat salt in his diet. Patient does note that about a year ago he saw outside hospital neurologist for memory issues and he has been receiving vitamin B12 injections. I spoke with the patient about admission given low sodium and he provided informed refusal and would prefer to be discharged with close outpatient follow- up. He will make dietary modifications. I will asked the care management arr magdalena for timely outpatient follow-up with neurology. Patient will initially seek appointment with his prior neurologist and if no availability he would rather switch to Dr. Cristina if she has availability. I do think the patient to be seen in the next week given progression of symptoms. Of note patient is prescribed both mirtazapine and cyclobenzaprine. He had reviewed side effects of these medications and stopped them a few days ago. Cyclobenzaprine can cause unsteadiness as a side effect. Mirtazapine can cause hyponatremia. I have recommended that he continue to discontinue these medications at this time. Lab Data Lab results reviewed: Yes I reviewed the patient's lab results. Labs: Laboratory Tests Range/Units 01/16/22 01/16/22 01/16/22 15:07 15:07 15:07 WBC (4.4-10.8) 10^3/uL 9.63 RBC (4.36-5.78) 10^6/uL 4.77 Hgb (13.5-17.5) g/dL 16.2 Hct (40.0-50.0) % 44.5 MCV (80-95) fL 93 MCH (27.0-33.0) pg 34.0 H MCHC (32.0-36.0) % 36.4 H RDW (11.8-14.1) % 12.2 Plt Count (130-400) 10^3/uL 324 MPV (8.0-11.0) fL 8.8 Immature Gran % 0.6 Neutrophils % 71.4 Lymphocytes % 13.6 Monocytes % 13.2 Eosinophils % 0.6 Basophils % 0.6 Nucleated RBC % (0.0-0.3) % 0.0 Absolute Neutrophils (1.2-6.7) 10^3/uL 6.87 H Absolute Lymphocytes (1.2-3.4) 10^3/uL 1.31 Absolute Monocytes (0.1-0.8) 10^3/uL 1.27 H Absolute Eosinophils (0.0-0.7) 10^3/uL 0.06 Absolute Basophils (0.0-0.2) 10^3/uL 0.06 PT (9.3-11.0) sec 11.3 H INR (0.9-1.1) 1.1 APTT (21.0-27.5) sec 26.0 Sodium (136-145) mmol/L 127 L Potassium (3.5-5.1) mmol/L 3.5 Chloride (98-107) mmol/L 92 L Carbon Dioxide (21.0-32.0) mmol/L 29.0 Anion Gap (3-11) mmol/L 6.0 BUN (7-18) mg/dL 7 Creatinine (0.70-1.30) mg/dL 0.8 Estimated GFR/1.73 m2 (mL/min/1.73m2) >= 60.00 Glucose (74-106) mg/dL 125 H Calcium (8.5-10.1) mg/dL 8.7 Magnesium (1.8-2.4) mg/dL 1.7 L Total Bilirubin (0.2-1.0) mg/dL 1.0 AST (15-37) U/L 33 ALT (16-63) U/L 49 Alkaline Phosphatase (46-116) U/L 103 Troponin I (<or=60) ng/L < 50 Total Protein (6.4-8.2) g/dL 6.5 Albumin (3.4-5.0) g/dL 3.5 Vitamin B12 (193-986) pg/mL > 2000 H Folate (8.6-20.0) ng/mL 7.5 L TSH (0.36-3.74) uIU/mL 1.87 Urine Color (Yellow) Urine Clarity (Clear) Urine pH (5-8) Ur Specific [place] (1.005-1.025) Urine Protein (Negative) mg/dL Urine Ketones (Negative) mg/dL Urine Blood (Negative) Urine Nitrite (Negative) Urine Bilirubin (Negative) Urine Urobilinogen (Up TO 0.2) EU/dL Ur Leukocyte Esterase (Negative) Urine Glucose (Negative) mg/dL Urine Opiates Screen (Negative) Urine Methadone Screen (Negative) Ur Barbiturates Screen (Negative) Ur Tricyclics Screen (Negative) Ur Amphetamines Screen (Negative) U Benzodiazepines Scrn (Negative) Urine Cocaine Screen (Negative) Ur THC Screen (Negative) Ethyl Alcohol (<10) mg/dL < 3.0 Range/Units 01/16/22 01/16/22 15:38 15:38 WBC (4.4-10.8) 10^3/uL RBC (4.36-5.78) 10^6/uL Hgb (13.5-17.5) g/dL Hct (40.0-50.0) % MCV (80-95) fL MCH (27.0-33.0) pg MCHC (32.0-36.0) % RDW (11.8-14.1) % Plt Count (130-400) 10^3/uL MPV (8.0-11.0) fL Immature Gran % Neutrophils % Lymphocytes % Monocytes % Eosinophils % Basophils % Nucleated RBC % (0.0-0.3) % Absolute Neutrophils (1.2-6.7) 10^3/uL Absolute Lymphocytes (1.2-3.4) 10^3/uL Absolute Monocytes (0.1-0.8) 10^3/uL Absolute Eosinophils (0.0-0.7) 10^3/uL Absolute Basophils (0.0-0.2) 10^3/uL PT (9.3-11.0) sec INR (0.9-1.1) APTT (21.0-27.5) sec Sodium (136-145) mmol/L Potassium (3.5-5.1) mmol/L Chloride (98-107) mmol/L Carbon Dioxide (21.0-32.0) mmol/L Anion Gap (3-11) mmol/L BUN (7-18) mg/dL Creatinine (0.70-1.30) mg/dL Estimated GFR/1.73 m2 (mL/min/1.73m2) Glucose (74-106) mg/dL Calcium (8.5-10.1) mg/dL Magnesium (1.8-2.4) mg/dL Total Bilirubin (0.2-1.0) mg/dL AST (15-37) U/L ALT (16-63) U/L Alkaline Phosphatase (46-116) U/L Troponin I (<or=60) ng/L Total Protein (6.4-8.2) g/dL Albumin (3.4-5.0) g/dL Vitamin B12 (193-986) pg/mL Folate (8.6-20.0) ng/mL TSH (0.36-3.74) uIU/mL Urine Color (Yellow) Yellow Urine Clarity (Clear) Clear Urine pH (5-8) 7.0 Ur Specific [place] (1.005-1.025) 1.015 Urine Protein (Negative) mg/dL Negative Urine Ketones (Negative) mg/dL Negative Urine Blood (Negative) Negative Urine Nitrite (Negative) Negative Urine Bilirubin (Negative) Negative Urine Urobilinogen (Up TO 0.2) EU/dL 0.2 Ur Leukocyte Esterase (Negative) Negative Urine Glucose (Negative) mg/dL Negative Urine Opiates Screen (Negative) Negative Urine Methadone Screen (Negative) Negative Ur Barbiturates Screen (Negative) Negative Ur Tricyclics Screen (Negative) Negative Ur Amphetamines Screen (Negative) Negative U Benzodiazepines Scrn (Negative) Negative Urine Cocaine Screen (Negative) Negative Ur THC Screen (Negative) Positive A Ethyl Alcohol (<10) mg/dL Sign Out Sign Out Data: Sign Out Comment: pending MRI and lab results for dispo; will need neuro Last updated by Cesar Jules MD at 01/16/22 16:04 Discharge Plan Disposition Patient Disposition: HOME Condition: Stable Discharge Details Clinical Impression: Paresthesias, Unsteady gait, Acute hyponatremia, Low folate Primary Care Provider: Becka Yang ED Provider: Ankur Flores Home Meds and New Rx's Prescriptions: Continued lansoprazole [Prevacid] 30 mg capsule,delayed release(DR/EC) 30 mg PO DAILY Qty: 90 3RF Rx Instructions: Best to take on empty stomach ~30min prior to food/drink/other medications acetaminophen 500 mg tablet 1,000 mg PO TID PRN (Reason: pain) Qty: 90 0RF thiamine HCl (vitamin B1) 100 mg tablet 100 mg PO DAILY Qty: 90 3RF diclofenac sodium [Voltaren Arthritis Pain] 1 % gel 2 g topical BID PRN Rx Instructions: Shoulder arthritis lidocaine HCl [Aspercreme (lidocaine HCl)] 4 % cream 1 applic topical DAILY PRN multivitamin [Daily Vitamin] 1 EACH tablet 1 ea PO DAILY ibuprofen 600 mg tablet 600 mg PO TID PRN (Reason: pain) Qty: 90 0RF Discontinued mirtazapine 15 mg tablet 15 mg PO QHS Qty: 90 3RF cyclobenzaprine 5 mg tablet 5 mg PO BID PRN (Reason: muscle spasm) Qty: 90 3RF No Action sildenafil [Viagra] 50 mg tablet 50 mg PO DAILY PRN Qty: 20 0RF Rx Instructions: Take 1-4 hours prior to event. Discharge Instructions Instructions: Hyponatremia (ED), Paresthesia (ED) Additional Instructions: Please follow-up with neurology this week for reassessment of gait abnormality and numbness. Increase salt intake in your diet and take multivitamin as prescribed. Please contact your primary care physician to arrange follow-up. Return to the ER immediately for any worsening or new concerning symptoms. Referrals: Becka Yang NP [Primary Care Provider] - Wendy Cristina MD [ [facility] STAFF PHYSICIAN] -
--- NOTE | 2022-01-16 17:44 | DI.VRAD_ITS ---
PROCEDURE INFORMATION: Exam: XR Chest Exam date and time: 01/16/2022 4:50 PM Age: 66 years old Clinical indication: Shortness of breath TECHNIQUE: Imaging protocol: Radiologic exam of the chest. Views: 1 view. COMPARISON: CR XR CHEST 2V PA LATERAL 04/24/2021 2:42 PM FINDINGS: Lungs: Unremarkable. No consolidation. Pleural spaces: Unremarkable. No pleural effusion. No pneumothorax. Heart/Mediastinum: Unremarkable. No cardiomegaly. Bones/joints: Unremarkable. IMPRESSION: 1. No acute findings. 2. Stable exam since 04/24/2021. Dictated and Authenticated by: Jacques Bobby MD. Ordering:NHUNG Guerrero MD
--- NOTE | 2022-01-16 17:44 | NUR.NOTE ---
Nursing Note: Pt info faxed to neurology for follow up next week for new gait abnormality. Valentina, ED
[2022-01-21 22:24] LABS: Thiamine (Vitamin B1), WB 65 nmol/L (70-180)
== END 2022-01-16 17:52 | disposition home or self-care (01) ==
PROVIDERS: Emergency Medicine; Emergency Provider Student in an Organized Health Care Education/Training Program; PCP Nurse Practitioner Adult Health
DX: R20.2 Paresthesia of skin (principal); R27.8 Other lack of coordination; R53.1 Weakness; R29.6 Repeated falls; E87.1 Hypo-osmolality and hyponatremia; E83.42 Hypomagnesemia; F10.20 Alcohol dependence, uncomplicated; E56.9 Vitamin deficiency, unspecified
CPT/HCPCS: 36415; 70544; 70547; 80053; 80307; 96360; 99284; 70551; 71045; 80320; 81003; 82607; 82746; 83735; 84425; 84443; 84484; 85025; 85610; 85730; 99285

== ENCOUNTER → 2022-01-20 13:23 | Outpatient (BNVA) | payer OTHER, MEDICARE, SELFPAY | PROVIDERS: PCP Nurse Practitioner Adult Health; Referring Provider Student in an Organized Health Care Education/Training Program; Visit Provider Psychiatry & Neurology Neurology | DX: R69 Illness, unspecified (principal) | CPT/HCPCS: 99215 ==

== ENCOUNTER 2022-01-23 01:54 | Outpatient (CLI) | payer MEDICARE, OTHER, SELFPAY ==
[2022-01-23 12:37] LABS: ESR 4 mm/hr (0-20)
[2022-01-23 13:25] LABS: ALT 53 U/L (16-63); AST 45 U/L (15-37); Albumin 3.6 g/dL (3.4-5.0); Alkaline Phosphatase 123 U/L (46-116); Anion Gap 13.1 mmol/L (3-11); BUN 5 mg/dL (7-18); Bilirubin, Total 0.8 mg/dL (0.2-1.0); CO2 21.9 mmol/L (21.0-32.0); CREATININE 0.5 mg/dL (0.70-1.30); Calcium 8.9 mg/dL (8.5-10.1); Chloride 90 mmol/L (98-107); Folate 12.8 ng/mL (8.6-20.0); Glucose 100 mg/dL (74-106); Potassium 3.6 mmol/L (3.5-5.1); Sodium 125 mmol/L (136-145); TSH (W/Ref FT4) 1.14 uIU/mL (0.36-3.74)
[2022-01-23 13:30] LABS: Vitamin B12 > 2000 pg/mL (193-986)
[2022-01-23 13:38] LABS: Bilirubin, Direct 0.2 mg/dL (0.0-0.2); C-Reactive Protein 1.03 mg/dL (0.0-0.3)
[2022-01-25 12:15] LABS: Ceruloplasmin 25.8 mg/dL
[2022-01-26 11:10] LABS: Hepatitis A Antibody IgM Negative (Negative); Hepatitis B Core Antibody Negative (Negative); Hepatitis B surface Ag Negative (Negative); Hepatitis C Ab w Rflx HCV PCR Negative (Negative)
[2022-01-26 12:39] LABS: Copper, Serum 104 mcg/dL (73-129)
[2022-01-26 15:50] LABS: ANA Interpretation Negative (Negative)
[2022-01-27 14:40] LABS: Thiamine (Vitamin B1), WB 64 nmol/L (70-180)
[2022-01-28 00:51] LABS: Vitamin E, Serum 9.5 mg/L (5.5 - 17.0)
[2022-01-28 22:24] LABS: Gliadin (Deamidated) Ab, IgA <10.0 U; Gliadin (Deamidated) Ab, IgG <10.0 U
[2022-02-05 16:52] LABS: AGNA-1 Negative titer (<1:240); ANNA-1 Negative titer (<1:240); ANNA-2 Negative titer (<1:240); ANNA-3 Negative titer (<1:240); IgG Asialo. GM1 Negative (Negative); IgG Disialo. GD1b Negative (Negative); IgG Monos. GM1 Negative (Negative); IgM Asialo. GM1 Negative (Negative); IgM Disialo. GD1b Negative (Negative); IgM Monos. GM1 Negative (Negative); PCA-1 Negative titer (<1:240); PCA-2 Negative titer (<1:240); PCA-Tr Negative titer (<1:240)
== END 2022-01-23 01:55 | disposition home or self-care (01) ==
LOC: LBO 01:54
PROVIDERS: PCP Nurse Practitioner Adult Health; Visit Provider Psychiatry & Neurology Neurology
DX: E53.8 Deficiency of other specified B group vitamins; R79.89 Other specified abnormal findings of blood chemistry; Z72.89 Other problems related to lifestyle; E87.1 Hypo-osmolality and hyponatremia; R20.2 Paresthesia of skin; R27.0 Ataxia, unspecified; E83.00 Disorder of copper metabolism, unspecified; Z11.59 Encounter for screening for other viral diseases; D58.2 Other hemoglobinopathies; G62.9 Polyneuropathy, unspecified; R06.09 Other forms of dyspnea; R63.4 Abnormal weight loss; K21.9 Gastro-esophageal reflux disease without esophagitis; E78.5 Hyperlipidemia, unspecified; F10.10 Alcohol abuse, uncomplicated
CPT/HCPCS: 36415; 80048; 80076; 82390; 82525; 83516; 85652; 86341; 86704; 86709; 86803; 87340; 82607; 82746; 83519; 83520; 84425; 84443; 84446; 86038; 86140; 86256

== ENCOUNTER 2022-01-23 18:49 | Inpatient (IN) | payer OTHER, MEDICARE, SELFPAY ==
[2022-01-23 18:53] VITALS: BP 122/69; PULSE 109; RESP 18; TEMP 36.7; O2SAT 97
--- NOTE | 2022-01-23 20:15 | DI.RAD_ITS ---
Exam(s) XR PORTABLE CHEST AP EXAM: XR PORTABLE CHEST AP CLINICAL HISTORY: sob, ataxia TECHNIQUE: 2D digital imaging was performed. COMPARISON: CR,XR XR PORTABLE CHEST AP from 01/16/2022 FINDINGS: LUNGS: Clear. No pleural abnormality seen. HEART: Normal. AORTA: Normal. BONES: Unremarkable for age. Soft tissues: Unremarkable. IMPRESSION: No acute findings. DATA REPOSITORY: RADIATION DOSE DELIVERED:
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
[2022-01-23 20:58] LABS: PTT Activated 24.8 sec (21.0-27.5); Prothrombin Time 10.5 sec (9.3-11.0)
[2022-01-23 21:03] LABS: Abs Immature Grans 0.14 10^3/uL (0.0-0.06); Absolute Basophil Count 0.09 10^3/uL (0.0-0.2); Absolute Eosinophil Count 0.21 10^3/uL (0.0-0.7); Absolute Lymphocyte Count 2.63 10^3/uL (1.2-3.4); Absolute Monocyte Count 1.65 10^3/uL (0.1-0.8); Absolute Neutrophil Count 5.58 10^3/uL (1.2-6.7); Basophils % 0.9; HCT 40.1 % (40.0-50.0); HGB 14.9 g/dL (13.5-17.5); Immature Grans % 1.4; Lymphocytes % 25.5; MCHC 37.2 % (32.0-36.0); MCV 92 fL (80-95); Neutrophils % 54.2; Platelet Count 310 10^3/uL (130-400); RBC 4.38 10^6/uL (4.36-5.78); RDW 12.2 % (11.8-14.1)
[2022-01-23 21:12] LABS: ALT 49 U/L (16-63); AST 35 U/L (15-37); Albumin 3.2 g/dL (3.4-5.0); Alkaline Phosphatase 112 U/L (46-116); Anion Gap 13.3 mmol/L (3-11); BUN 4 mg/dL (7-18); Bilirubin, Total 0.6 mg/dL (0.2-1.0); CO2 23.7 mmol/L (21.0-32.0); CREATININE 0.6 mg/dL (0.70-1.30); Calcium 8.4 mg/dL (8.5-10.1); Chloride 89 mmol/L (98-107); Glucose 100 mg/dL (74-106); NT-proBNP 60 pg/mL (<300); Potassium 3.6 mmol/L (3.5-5.1); Sodium 126 mmol/L (136-145); Total Protein 6.2 g/dL (6.4-8.2); Troponin I < 50 ng/L (<or=60)
[2022-01-23 21:23] LABS: Diff Comment Agrees w/ Instrument; RBC Morphology Normal
[2022-01-23 21:27] LABS: Source Nasal/Nares
[2022-01-23 21:33] VITALS: BP 142/72; PULSE 96; RESP 16; TEMP 37; O2SAT 99
--- NOTE | 2022-01-23 21:39 | DI.VRAD_ITS ---
PROCEDURE INFORMATION: Exam: XR Chest Exam date and time: 01/23/2022 8:58 PM Age: 66 years old Clinical indication: Other: SOB, ataxia TECHNIQUE: Imaging protocol: Radiologic exam of the chest. Views: 1 view. COMPARISON: XR PORTABLE CHEST AP 01/16/2022 4:50 PM FINDINGS: Lungs: Unremarkable. No consolidation. Pleural spaces: Unremarkable. No pleural effusion. No pneumothorax. Heart/Mediastinum: Unremarkable. No cardiomegaly. Bones/joints: Unremarkable. IMPRESSION: No acute findings. Dictated and Authenticated by: Davian Ramirez MD. Ordering:NHUNG Guerrero MD
[2022-01-23] MEDS: LORazepam 20 MG/10 ML VIAL IVP (21:50)
[2022-01-23] MEDS: Ondansetron 4 MG/2 ML VIAL IVP (21:50)
[2022-01-23] MEDS: MORPHine 10 MG/ML VIAL 2 MG IVP (21:50)
[2022-01-23 22:00] LABS: ETHANOL BLOOD 8.8 mg/dL (<10)
[2022-01-23 22:08] LABS: COVID-19 PCR Negative (Negative)
[2022-01-23 22:09] LABS: Bilirubin Negative (Negative); Blood Negative (Negative); Clarity Clear (Clear); Glucose Negative (Negative); Ketones Negative (Negative); Leukocyte Esterase Negative (Negative); Nitrite Negative (Negative); Specific Gravity 1.015 (1.005-1.025); Urobilinogen 0.2 EU/dL (Up TO 0.2); pH 5.5 (5-8)
[2022-01-23 22:10] VITALS: BP 113/60; PULSE 95; RESP 16; O2SAT 98
[2022-01-23 22:15] LABS: Creatinine,Urine 70.14 mg/dL; Sodium, Urine 2 mmol/L
--- NOTE | 2022-01-23 22:15 | NUR.NOTE ---
Nursing Note: Lumbar puncture performed by Dr. Mo without complication. Pt lying on side, premedicated with zofran, morphine and ativan. Pt tolerated procedure without incident.
[2022-01-23 22:40] LABS: Glucose (CSF) 74 mg/dL (40-70); Total Protein (CSF) 54 mg/dL (15-45)
[2022-01-23 23:28] LABS: Tube # 4
[2022-01-23 23:29] LABS: Clarity Cloudy; WBC 1 /uL (0-5); Xanthochromia Absent
[2022-01-23 23:30] LABS: RBC 3320 /mm3 (0-5)
[2022-01-23 23:47] VITALS: BP 134/70; PULSE 95; RESP 16; O2SAT 97
[2022-01-24 00:02] LABS: RBC Tube#1 CSF 10080 /mm3 (0-5)
[2022-01-24 01:22] VITALS: BP 148/91; PULSE 102; RESP 16; TEMP 36.8; O2SAT 97
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
[2022-01-24 07:22] VITALS: BP 126/77; PULSE 64; RESP 16; TEMP 37.1; O2SAT 98
[2022-01-24] MEDS: Cyanocobalamin 500 MCG TAB 5000 MCG PO (07:50)
[2022-01-24] MEDS: Multivitamin TAB 1 TAB PO (07:51)
[2022-01-24] MEDS: Folic Acid 1 MG TAB PO (07:51)
[2022-01-24] MEDS: Enoxaparin 40 MG/0.4 ML SYR SC (07:51)
[2022-01-24] MEDS: Thiamine 100 MG TAB PO (07:55)
[2022-01-24 08:24] LABS: Anion Gap 7.2 mmol/L (3-11); BUN 6 mg/dL (7-18); CO2 27.8 mmol/L (21.0-32.0); CREATININE 0.7 mg/dL (0.70-1.30); Calcium 8.5 mg/dL (8.5-10.1); Chloride 92 mmol/L (98-107); Glucose 120 mg/dL (74-106); Magnesium 1.7 mg/dL (1.8-2.4); PHOSPHORUS 4.1 mg/dL (2.6-4.7); Potassium 3.9 mmol/L (3.5-5.1); Sodium 127 mmol/L (136-145)
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
[2022-01-24] MEDS: THIAMINE 500 MG in Normal Saline 100 ML 200 MG IVPB ×2 (09:01→15:43)
[2022-01-24] MEDS: Docusate Sodium 100 MG CAP PO (09:01)
[2022-01-24] MEDS: Normal Saline 500 ML 10 ML IV (09:02)
[2022-01-24] MEDS: Normal Saline Flush 10 ML SYR IVP ×2 (09:02→15:43)
--- NOTE | 2022-01-24 10:34 | PGE_ITS ---
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 His neck has not been imaged with MRI and this could be considered to rule out radiculopathy with his upper extremity symptoms though this would not fully explain his ataxia but he has significant spinal stenosis which usually would also have motor deficits. Wernicke Korsakoff syndrome and patient will be started on high-dose thiamine 500 mg every 8 hours. IVIG has been entertained by neurology considering possible atypical Guillain-Davila? though this is unlikely without motor involvement. This will not be instituted at this time. (2) Paresthesias: Start date: 01/24/22 Status: Acute Assessment and plan: This may be associated with cervical radiculopathy but more likely WK as discussed above. (3) Weight loss, abnormal: Status: Chronic Assessment and plan: Patient has had a significant weight loss and this may be associate with his chronic alcoholism though occult malignancy needs to be entertained. There is no evidence of central nervous system pathology at this time. Metabolically he has chronic hyponatremia and metabolic issues with poor nutrition. His alc oholism most likely is the cause of this problem with no evidence of depression by history. 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 Continue sodium chloride tablets and fluid restriction should be considered though alcohol cessation would be the most helpful. Patient has plans to stop drinking though this has not been well carried out in the past. He is highly functional but should consider outpatient alcohol rehabilitation programs. (5) Alcohol abuse, daily use: Status: Chronic Assessment and plan: Consider outpatient alcohol rehab programs to assist in complete cessation and abstinence. Patient should be counseled on this before discharge. Subjective Subjective Patient reports: no new complaints, tolerating a regular diet and voiding w/o difficulty; denies diarrhea, vomiting or fever Interval history since last seen: Reports continued gait issues and feeling weak. Exam Narrative Exam Narrative: General: Patient appears older than stated age, alert and oriented x3 and in no acute distress. He is sitting in bed and comfortable with his head at a 60 deg ree angle. HEENT: Normocephalic, eyes with pupils equal and reactive light symmetrically, extraocular movement intact and sclera anicteric. No nystagmus to lateral gaze. Oropharynx with moist mucosa and fair dentition. Neck: Supple without JVD and no auscultated bruits. Back: Stooped posture without CVA tenderness. Lungs: Clear to auscultation and percussion. Heart: Regular rate and rhythm without appreciable murmur or gallop. Abdomen: Normal contour, soft nontender to palpation with no palpable hepatosplenomegaly. Genitalia/rectal: Exam deferred. Extremities: Without clubbing, cyanosis or pitting edema. Decreased muscle mass over upper and lower extremities with patient admitting to having decreased physical activity over the last years. Good capillary refill and pulses intact. Skin: Actinic changes over sun exposed areas, otherwise normal color, warm and dry. Neuro: cranial nerves II through XII grossly intact, no focalizing motor deficits or tremors. Finger-nose with eyes open and close is normal palpation moves slowly and is not at the tip of his finger to his nose. Babinski negative. Positive Romberg. Psych: Normal mood and affect. No abnormal thought processes. Remote and recent memory intact. Objective Last Vital Signs Temp 37.1 C 01/24/22 07:22 Pulse 64 01/24/22 07:22 Resp 16 01/24/22 07:22 BP 126/77 01/24/22 07:22 Pulse Ox 98 01/24/22 07:22 Laboratory Results - last 24 hr 01/23/22 01/23/22 01/23/22 20:20 20:30 20:30 WBC 10.30 RBC 4.38 Hgb 14.9 Hct 40.1 MCV 92 MCH 34.0 H MCHC 37.2 H RDW 12.2 Plt Count 310 MPV 9.0 Immature Gran % 1.4 Neutrophils % 54.2 Lymphocytes % 25.5 Monocytes % 16.0 Eosinophils % 2.0 Basophils % 0.9 Nucleated RBC % 0.0 Absolute Neutrophils 5.58 Absolute Lymphocytes 2.63 Absolute Monocytes 1.65 H Absolute Eosinophils 0.21 Absolute Basophils 0.09 RBC Morphology Normal Xanthochromia PT INR APTT Sodium 126 L Potassium 3.6 Chloride 89 L Carbon Dioxide 23.7 Anion Gap 13.3 H BUN 4 L Creatinine 0.6 L Estimated GFR/1.73 m2 >= 60.00 Glucose 100 Calcium 8.4 L Phosphorus Magnesium Total Bilirubin 0.6 AST 35 ALT 49 Alkaline Phosphatase 112 Troponin I < 50 NT-Pro-B Natriuret Pep 60 Total Protein 6.2 L Albumin 3.2 L Urine Color Urine Clarity Urine pH Ur Specific [place] Urine Protein Urine Ketones Urine Blood Urine Nitrite Urine Bilirubin Urine Urobilinogen Ur Leukocyte Esterase Ur Random Creatinine Ur Random Sodium Urine Glucose CSF Tube Number CSF Color CSF Clarity CSF WBC CSF RBC CSF RBC (1) CSF Diff Comment CSF Glucose CSF Total Protein Ethyl Alcohol 8.8 COVID-19 Source SARS-CoV-2 (PCR) 01/23/22 01/23/22 01/23/22 20:30 21:20 21:36 WBC RBC Hgb Hct MCV MCH MCHC RDW Plt Count MPV Immature Gran % Neutrophils % Lymphocytes % Monocytes % Eosinophils % Basophils % Nucleated RBC % Absolute Neutrophils Absolute Lymphocytes Absolute Monocytes Absolute Eosinophils Absolute Basophils RBC Morphology Xanthochromia PT 10.5 INR 1.0 APTT 24.8 Sodium Potassium Chloride Carbon Dioxide Anion Gap BUN Creatinine Estimated GFR/1.73 m2 Glucose Calcium Phosphorus Magnesium Total Bilirubin AST ALT Alkaline Phosphatase Troponin I NT-Pro-B Natriuret Pep Total Protein Albumin Urine Color Urine Clarity Urine pH Ur Specific [place] Urine Protein Urine Ketones Urine Blood Urine Nitrite Urine Bilirubin Urine Urobilinogen Ur Leukocyte Esterase Ur Random Creatinine 70.14 Ur Random Sodium 2 Urine Glucose CSF Tube Number CSF Color CSF Clarity CSF WBC CSF RBC CSF RBC (1) CSF Diff Comment CSF Glucose CSF Total Protein Ethyl Alcohol COVID-19 Source Nasal/Nares SARS-CoV-2 (PCR) Negative 01/23/22 01/23/22 01/23/22 21:36 22:13 22:13 WBC RBC Hgb Hct MCV MCH MCHC RDW Plt Count MPV Immature Gran % Neutrophils % Lymphocytes % Monocytes % Eosinophils % Basophils % Nucleated RBC % Absolute Neutrophils Absolute Lymphocytes Absolute Monocytes Absolute Eosinophils Absolute Basophils RBC Morphology Xanthochromia Absent PT INR APTT Sodium Potassium Chloride Carbon Dioxide Anion Gap BUN Creatinine Estimated GFR/1.73 m2 Glucose Calcium Phosphorus Magnesium Total Bilirubin AST ALT Alkaline Phosphatase Troponin I NT-Pro-B Natriuret Pep Total Protein Albumin Urine Color Yellow Urine Clarity Clear Urine pH 5.5 Ur Specific [place] 1.015 Urine Protein Negative Urine Ketones Negative Urine Blood Negative Urine Nitrite Negative Urine Bilirubin Negative Urine Urobilinogen 0.2 Ur Leukocyte Esterase Negative Ur Random Creatinine Ur Random Sodium Urine Glucose Negative CSF Tube Number 4 CSF Color CSF Clarity Cloudy CSF WBC 1 CSF RBC 3320 H CSF RBC (1) 64436 H CSF Diff Comment CSF Glucose 74 H CSF Total Protein 54 H Ethyl Alcohol COVID-19 Source SARS-CoV-2 (PCR) 01/24/22 01/24/22 07:48 07:48 WBC RBC Hgb Hct MCV MCH MCHC RDW Plt Count MPV Immature Gran % Neutrophils % Lymphocytes % Monocytes % Eosinophils % Basophils % Nucleated RBC % Absolute Neutrophils Absolute Lymphocytes Absolute Monocytes Absolute Eosinophils Absolute Basophils RBC Morphology Xanthochromia PT INR APTT Sodium 127 L Potassium 3.9 Chloride 92 L Carbon Dioxide 27.8 Anion Gap 7.2 BUN 6 L Creatinine 0.7 Estimated GFR/1.73 m2 >= 60.00 Glucose 120 H Calcium 8.5 Phosphorus 4.1 Cancelled Magnesium 1.7 L Total Bilirubin AST ALT Alkaline Phosphatase Troponin I NT-Pro-B Natriuret Pep Total Protein Albumin Urine Color Urine Clarity Urine pH Ur Specific [place] Urine Protein Urine Ketones Urine Blood Urine Nitrite Urine Bilirubin Urine Urobilinogen Ur Leukocyte Esterase Ur Random Creatinine Ur Random Sodium Urine Glucose CSF Tube Number CSF Color CSF Clarity CSF WBC CSF RBC CSF RBC (1) CSF Diff Comment CSF Glucose CSF Total Protein Ethyl Alcohol COVID-19 Source SARS-CoV-2 (PCR) Reviewed Pertinent PMH: Yes PAWSS Have you Been Recently Intoxicated or Drunk Within the Last 30 days?: No Have you Ever Experienced Previous Episodes of Alcohol Withdrawal?: No Have you ever Experienced Withdrawal Seizures?: No Have you ever Experienced Delirium Tremens(DT)s?: No Have you ever undergone Alcohol Rehabilitation Treatment (i.e, inpt ot outpatient treatment programs)?: No Have you ever Experienced Blackouts?: No Have you ever Combined Alcohol with other Downers within the last 90 days?: No Have you ever Combined Alcohol with any other Substance of Abuse during the last 90 days?: No Positive Blood Alcohol level on Presentation? [PCS.BAL]: No Evidence of Increased Autonomic Activity (i.e. HR>120, tremor, sweating, agitation, nausea)?: No Result: 0
[2022-01-24 11:09] VITALS: BP 106/63; PULSE 94; RESP 16; TEMP 36.8; O2SAT 96
--- NOTE | 2022-01-24 12:16 | PT.INIE ---
PT Notes Visit Reasons: Ataxia Physical Therapy Inpatient Initial Evaluation Date: 01/24/22 Referring Doctor: Bello Roche MD PT Orders: PT CONSULT: Eval for assistive device Precautions: Fall. Standard. Patient Profile/Admitting Diagnosis: Nael is 66 yo male that presented to the ER on 01/23/22 for worsening ataxia. He has been seen by neurology with multiple studies/tests done. Admitted under observation status with additional work up being performed. PMHX: See EMR Social History/Home Situation: Lives with spouse in home, 2 story plus basement, but has been managing on main level Equipment Owned/DME: cane, FWW Subjective: Cleared by nursing to see patient and patient is agreeable to PT. Patient is resting in bed time of consult and connected to pulse oximeter. Objective: General Observation: Ataxic gait, decreased coordination on right LE with stepping. Mental Status: A&O x3 Pain: None reported ROM: Right Upper Extremity: Shoulder Flexion to 100 degrees. Shoulder abduction to 90 degrees. Elbow flexion WFL. Wrist flexion WFL. Opening and closing of hand WFL. Left Upper Extremity: Shoulder Flexion to 100 degrees. Shoulder abduction to 90 degrees. Elbow flexion WFL. Wrist flexion WFL. Opening and closing of hand WFL. Right Lower Extremity: Hip flexion WFL. Hip abduction WFL. Knee flexion WFL. Ankle dorsiflexion WFL. Ankle plantarflexion WFL. Left Lower Extremity: Hip flexion WFL. Hip abduction WFL. Knee flexion WFL. Ankle dorsiflexion WFL. Ankle plantarflexion WFL. Strength: Right Upper Extremity: Shoulder flexors 4+/5. Shoulder abductors 4+/5. Elbow flexors 5/5. Elbow extensors 5/5. Wardrobe Image Consultant strong. Left Upper Extremity: Shoulder flexors 4+/5. Shoulder abductors 4+/5. Elbow flexors 5/5. Elbow extensors 5/5. Wardrobe Image Consultant strong. Right Lower Extremity: Hip flexors 4+/5. Knee flexors 4/5. Knee extensors 3+/5. Ankle dorsiflexors 5/5. Ankle plantarflexors 5/5. Left Lower Extremity: Hip flexors 5-/5. Knee flexors 5/5. Knee extensors 5-/5. Ankle dorsiflexors 4+/5. Ankle plantarflexors 5/5. Sensation: Diminished in bilateral LEs below the knee, reports no sensation bottom of feet Bed Mobility/Transfers: Rolling: Independent Supine to sit: Independent Sit to supine: Independent Sit to stand: Supervision Stand to sit: Supervision Gait: Ambulated 200' with FWW, CGA. 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 Assessment: Patient presents with clinical signs and symptoms consistent with current/admitting diagnoses that have resulted to mobility limitations, gait instability, generalized weakness, and impairment of motor control as demonstrated by the following impairment level findings: 1. Decreased strength to knee major muscle groups 2. Impaired sitting/standing balance 3. Impaired activity tolerance 4. Limitation of joint range of motion in shoulders Impairments are contributing to the following functional limitations: 1. Dependent bed mobility skills 2. Increased dependence with transfers 3. Inability to safely ambulate without assistive device and physical assistance 4. Increase completion time for mobility ADL performance 5. Increased fall risk 6. Inability to negotiate steps alone safely Patient is assessed as a Low complexity based on the following: History: 66 year old male with impairment level findings, functional limitations, and past medical history as indicated above Examination: Demonstrable impairment in strength, balance, and mobility level with underlying impairments and functional limitations as documented above Presentation: Evolving Decision Making: Low complexity Goals: Goals x1 week 1. Sit-Stand: independent 2. Stand-Sit: independent 3. Bed-Chair: independent 4. Chair-Bed: independent 5. Independent gait on level surface with use of least restrictive device for at least 300 feet without report of pain nor dyspnea 6. Good static and dynamic standing balance/tolerance 7. Independent with home exercise program 8. Independent stair negotiation while holding onto bilateral rails for at least 10 steps without report of pain nor dyspnea Plan of Care/Treatment Plan: 1x/day, 5 days/week x1 week. Plan of care has been reviewed with the RIGGING MAN providing the service under Physical Therapy direction. Initiate Physical Therapy intervention for strengthening, bed mobility, transfers, gait, stairs, balance training, and use of assistive device. Discharge Plan DISCHARGE RECOMMENDATIONS: Home with outpatient PT TREATMENT CODE/TIME: 11:44-12:15 (29 minutes), [id number], [id number] Thank you for the opportunity to participate in the care of this patient. Jazz De Oliveira, PT, DPT, OCS [facility] [place], [place]
[2022-01-24 15:50] VITALS: BP 147/90; PULSE 91; RESP 20; TEMP 36.9; O2SAT 95
[2022-01-24 19:33] VITALS: BP 142/86; PULSE 91; RESP 18; TEMP 36.9; O2SAT 97
[2022-01-24] MEDS: Mirtazapine 15 MG TAB PO (21:55)
[2022-01-24] MEDS: Acetaminophen 325 MG TAB PO (21:55)
[2022-01-24 22:52] VITALS: BP 161/92; PULSE 96; RESP 18; TEMP 37.1; O2SAT 95
[2022-01-25] MEDS: THIAMINE 500 MG in Normal Saline 100 ML 200 MG IVPB ×2 (00:14→08:06)
[2022-01-25] MEDS: Normal Saline Flush 10 ML SYR IVP ×2 (00:14→08:07)
[2022-01-25 02:57] VITALS: BP 124/70; PULSE 88; RESP 16; TEMP 37.1; O2SAT 96
[2022-01-25 05:57] LABS: Abs Immature Grans 0.12 10^3/uL (0.0-0.06); Absolute Basophil Count 0.06 10^3/uL (0.0-0.2); Absolute Eosinophil Count 0.23 10^3/uL (0.0-0.7); Absolute Lymphocyte Count 1.55 10^3/uL (1.2-3.4); Absolute Monocyte Count 1.02 10^3/uL (0.1-0.8); Absolute Neutrophil Count 4.89 10^3/uL (1.2-6.7); Basophils % 0.8; Eosinophils % 2.9; HCT 40.6 % (40.0-50.0); HGB 14.8 g/dL (13.5-17.5); Immature Grans % 1.5; Lymphocytes % 19.7; MCH 34.1 pg (27.0-33.0); MCHC 36.5 % (32.0-36.0); MCV 94 fL (80-95); MPV 8.9 fL (8.0-11.0); Neutrophils % 62.1; Platelet Count 320 10^3/uL (130-400); RBC 4.34 10^6/uL (4.36-5.78); RDW 12.3 % (11.8-14.1); RDW-SD 42.6 fL; WBC 7.87 10^3/uL (4.4-10.8)
[2022-01-25 06:15] LABS: ALT 37 U/L (16-63); AST 24 U/L (15-37); Alkaline Phosphatase 102 U/L (46-116); Anion Gap 6.7 mmol/L (3-11); BUN 5 mg/dL (7-18); Bilirubin, Total 0.8 mg/dL (0.2-1.0); CO2 28.3 mmol/L (21.0-32.0); CREATININE 0.7 mg/dL (0.70-1.30); Calcium 8.5 mg/dL (8.5-10.1); Chloride 99 mmol/L (98-107); Glucose 137 mg/dL (74-106); Magnesium 1.8 mg/dL (1.8-2.4); Potassium 3.4 mmol/L (3.5-5.1); Sodium 134 mmol/L (136-145); Total Protein 5.7 g/dL (6.4-8.2)
[2022-01-25 07:47] VITALS: BP 138/88; PULSE 92; RESP 18; TEMP 37.4; O2SAT 97
[2022-01-25] MEDS: Cyanocobalamin 500 MCG TAB 5000 MCG PO (08:05)
[2022-01-25] MEDS: Multivitamin TAB 1 TAB PO (08:06)
[2022-01-25] MEDS: Thiamine 100 MG TAB PO (08:06)
[2022-01-25] MEDS: Folic Acid 1 MG TAB PO (08:06)
[2022-01-25] MEDS: Potassium Chloride 10 MEQ CAPCR 40 MEQ PO (08:06)
[2022-01-25] MEDS: Enoxaparin 40 MG/0.4 ML SYR SC (08:06)
[2022-01-25] MEDS: POTASSIUM CHLORIDE 10 MEQ/100 ML BAG 100 MEQ IVPB ×2 (09:04→10:54)
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
--- NOTE | 2022-01-25 12:12 | NUR.NOTE ---
A claritin tablet was found in the patient's bed this am. I had spoken to the pt this am and advised that he should not take any of his home meds while he is here and that we need a doctor's order for any new meds. I asked him if there were any particular medications he wanted and he said he would like an order for claritin and immodium. I also requested that he allow us to send his bag of home medications to the pharmacy in which he refused. When the provider met with the pt this am, it was determine that the pt would be discharged after four runs of potassium which would end at approximately 1305. Since he was being discharged, I did not ask for prn meds. He apparently told his 10am for a chicken picker time so at 1120 the patient's came to the nurses' and belligerently said so how much longer is going to be because he is about to walk. Advised that his papers are not ready yet. When I walk into the room to discuss the time he was given for discharge was 2pm since his medication would not be done until 1300, the patient was taking his own medication. When asked what he was taking he said he was taking immodium and the told me this food has caused gastric upset. I again advised the pt that I needed an order for him to have prn medications. He answered tough as he popped it in his mouth. Rebeca Dozier APRN informed. Requested that discharge be expedited since pt has also refused the rest of his potassium infusions and has requested for his IV to be removed.Nursing Note:
--- NOTE | 2022-01-25 12:35 | NUR.NOTE ---
Nursing Note: Pt and his have become increasingly agitated and anxious regarding discharge time today. Had been previously told d/c would happen at 1400 following four runs of IV potassium. Half way through bag 07/25, pt insisted that the IV infusion be stopped and that his IV be removed. I am done and ready to go. (Approx. 11:00 am). Pt's came to nurse's station several times stating that pt was going to leave (AMA) and that she was parked in a 15 minute parking spot. Discharge paperwork was expedited and discharge education was provided. Pt d/c'ed via wheelchair with , accompanied by REGLA, at 1230.
--- NOTE | 2022-01-25 15:12 | CMDISCH_ITS ---
- If Service Date Differs Date of service: 01/25/22 Time of Service: 15:12 LACE Index Scoring Tool - Questions: Length of Stay (in days): 1 Acuity (Admit via E.D.?): Yes E.D. Visits: 1 - Answers: Total Score: 5 Risk of Readmission: Low Risk Care Management Discharge Reason for Hospitalization: Ataxia, Paresthesia, abnormal weight loss Discharge Plan: Nael is discharged home via private vehicle with . Nael will follow up with his PCP and Neurology as scheduled. Nael will continue outpatient PT as scheduled. Nael will follow discharge plan of care as prescribed. Patient/Family Education Needs: Review discharge instructions, limitations, m edications and plan to follow up with community providers. ask me three. Services Needed at Discharge: Physical Therapy (Resume outpt PT )
[2022-01-25 19:57] LABS: Enterovirus PCR, CSF Negative (Negative)
[2022-01-26 11:24] LABS: Lyme Ab w Rflx to Lyme Confirm Negative (Negative)
[2022-01-26 12:59] LABS: Syphilis Serology (RPR) Negative (Negative)
--- NOTE | 2022-01-26 18:40 | INDS_ITS ---
Date of service: 01/26/22 PT Notes Visit Reasons: Ataxia Physical Therapy Inpatient Discharge Summary Date: 01/24/22 Dates of Service: 01/24/2022 only This is a clinical summary of care provided for the duration of dates listed above. No charge was made in the completion of this documentation. Referring Doctor: Bello Roche MD PT Orders: PT CONSULT: Eval for assistive device Precautions: Fall. Standard. Patient Profile/Admitting Diagnosis:?Nael is 66 yo male that presented to the ER on 01/23/22 for worsening ataxia. He has been seen by neurology with multiple studies/tests done. Admitted under observation status with additional work up being performed. PMHX: See EMR Social History/Home Situation: Lives with spouse in home, 2 story plus basement, but has been managing on main level Equipment Owned/DME: cane, [employer] Subjective:?NT. See most recent FURNITURE DETAILER notes. Objective:? General Observation: NT. See most recent FURNITURE DETAILER notes. Mental Status: NT. See most recent FURNITURE DETAILER notes. Pain: NT. See most recent FURNITURE DETAILER notes. ROM: Right Upper Extremity: Shoulder Flexion to 100 degrees. Shoulder abduction to 90 degrees. Elbow flexion WFL. Wrist flexion WFL. Opening and closing of hand WFL. Left Upper Extremity: Shoulder Flexion to 100 degrees. Shoulder abduction to 90 degrees. Elbow flexion WFL. Wrist flexion WFL. Opening and closing of hand WFL. Right Lower Extremity: Hip flexion WFL. Hip abduction WFL. Knee flexion WFL. Ankle dorsiflexion WFL. Ankle plantarflexion WFL. Left Lower Extremity: Hip flexion WFL. Hip abduction WFL. Knee flexion WFL. Ankle dorsiflexion WFL. Ankle plantarflexion WFL. Strength: Right Upper Extremity: Shoulder flexors 4+/5. Shoulder abductors 4+/5. Elbow flexors 5/5. Elbow extensors 5/5. Manager Supplier strong. Left Upper Extremity: Shoulder flexors 4+/5. Shoulder abductors 4+/5. Elbow flexors 5/5. Elbow extensors 5/5. Manager Supplier strong. Right Lower Extremity: Hip flexors 4+/5. Knee flexors 4/5. Knee extensors 3+/5. Ankle dorsiflexors 5/5. Ankle plantarflexors 5/5. Left Lower Extremity: Hip flexors 5-/5. Knee flexors 5/5. Knee extensors 5-/5. Ankle dorsiflexors 4+/5. Ankle plantarflexors 5/5. Sensation:?Diminished in bilateral LEs below the knee, reports no sensation bottom of feet Bed Mobility/Transfers: Rolling: Independent Supine to sit: Independent Sit to supine: Independent Sit to stand: Supervision Stand to sit: Supervision Gait:?Ambulated 200' with FWW, CGA. No path deviation, but balance/weight appears to be in heels, decreased right knee extension, increased hip flexion -Patient reports less out of breath and improved control with use of FWW compared to cane Stairs:?Ascend/descend with alternating gait 4x3, 6x2 using bilateral UE support, CGA Balance: Static Sitting: Good Dynamic Sitting: Good Static Standing: Fair Dynamic Standing: Poor Therapeutic Activity ([id number])?dynamic movement and functional strengthening to improve physical performance: 15 minutes Instructed in use of FWW, ambulated 200 feet Instructed in calf stretch using leg radiologic technology program director Answered wifes questions in regards to using walker in home Assessment: Patient presents with clinical signs and symptoms consistent with current/admitting diagnoses that have resulted to mobility limitations, gait instability, generalized weakness, and impairment of motor control as demonstrated by the following impairment level findings: 1. Decreased strength to knee major muscle groups 2. Impaired sitting/standing balance 3. Impaired activity tolerance 4. Limitation of joint range of motion in shoulders Impairments are contributing to the following functional limitations: 1. Dependent bed mobility skills 2. Increased dependence with transfers 3. Inability to safely ambulate without assistive device and physical assistance 4. Increase completion time for mobility ADL performance 5. Increased fall risk 6. Inability to negotiate steps alone safely Goals: Goals x1 week 1. Sit-Stand: independent NOT MET 2. Stand-Sit: independent NOT MET 3. Bed-Chair: independent NOT MET 4. Chair-Bed: independent NOT MET 5. Independent gait on level surface with use of least restrictive device for at least 300 feet without report of pain nor dyspnea NOT MET 6. Good static and dynamic standing balance/tolerance NOT MET 7. Independent with home exercise program NOT MET 8. Independent stair negotiation while holding onto bilateral rails for at least 10 steps without report of pain nor dyspnea. NOT MET Discharge Plan DISCHARGE RECOMMENDATIONS: Home with outpatient PT TREATMENT CODE/TIME: HI Thank you for the opportunity to participate in the care of this patient. Yisel Donohue PT, DPT, CLT [facility] [place], [place]
[2022-01-27 15:55] LABS: Syphilis IgG w/Reflex Nonreactive (Nonreactive)
[2022-01-28 14:35] LABS: VDRL, CSF Negative (Negative)
[2022-01-28 19:27] LABS: Anaplasma phagocytophilum Negative (Negative); B. miyamotoi PCR Negative (Negative); Babesia divergens/MO-1 Negative (Negative); Babesia duncani Negative (Negative); Babesia microti Negative (Negative); Ehrlichia chaffeensis Negative (Negative); Ehrlichia ewingii/canis Negative (Negative); Ehrlichia muris eauclairensis Negative (Negative)
[2022-01-30 10:32] LABS: AGNA-1, CSF Negative titer (<1:2); ANNA-1, CSF Negative titer (<1:2); ANNA-2, CSF Negative titer (<1:2); ANNA-3, CSF Negative titer (<1:2); Amphiphysin Ab, CSF Negative titer (<1:2); CRMP-5-IgG, CSF Negative titer (<1:2); PCA-1, CSF Negative titer (<1:2); PCA-2, CSF Negative titer (<1:2); PCA-Tr, CSF Negative titer (<1:2)
== END 2022-01-25 12:30 | disposition home or self-care (01) | DRG 897 ==
LOC: ER 01-24 00:07 → MS 01-24 01:18
PROVIDERS: Admitting Provider Family Medicine; Emergency Provider Emergency Medicine; PCP Nurse Practitioner Adult Health; Visit Provider Family Medicine
DX: F10.188 Alcohol abuse with other alcohol-induced disorder (principal); E87.1 Hypo-osmolality and hyponatremia; R20.2 Paresthesia of skin; R63.4 Abnormal weight loss; F10.10 Alcohol abuse, uncomplicated; R29.6 Repeated falls; E53.8 Deficiency of other specified B group vitamins; M19.012 Primary osteoarthritis, left shoulder; G89.29 Other chronic pain; M54.2 Cervicalgia; R13.14 Dysphagia, pharyngoesophageal phase; R73.01 Impaired fasting glucose; E78.5 Hyperlipidemia, unspecified; J30.9 Allergic rhinitis, unspecified; M54.50 Low back pain, unspecified; R60.0 Localized edema; R26.0 Ataxic gait; R53.1 Weakness; M48.00 Spinal stenosis, site unspecified
CPT/HCPCS: 36415; 80048; 80053; 80076; 82390; 82525; 82945; 83516; 85652; 86255; 86341; 86704; 86709; 86803; 87340; 87498; 87635; 87798; 89050; 89051; 96374; 96375; 97161; 97530; 99284; 99285; J1650; 71045; 80320; 81003; 82565; 82607; 82746; 83519; 83520; 83735; 83880; 84100; 84157; 84300; 84425; 84443; 84446; 84484; 85025; 85610; 85730; 86038; 86140; 86256; 86592; 86618; 86780; 87070; 87205; 99223; 99238; J2270; J2405; J3480; J3490

== ENCOUNTER 2022-01-29 01:28 | Outpatient (CLI) | payer OTHER, MEDICARE, SELFPAY | END 2022-01-29 01:29 | disposition home or self-care (01) | LOC: LBO 01:29 | PROVIDERS: PCP Nurse Practitioner Adult Health; Visit Provider Nurse Practitioner Adult Health | DX: G62.9 Polyneuropathy, unspecified (principal); R27.0 Ataxia, unspecified; R06.00 Dyspnea, unspecified | CPT/HCPCS: 95912; 99213 ==

== ENCOUNTER 2022-02-12 02:33 | Outpatient (RCR) | payer OTHER, MEDICARE, SELFPAY ==
[2022-02-10] VITALS (7 sets, daily range): BP systolic 137–154; BP diastolic 87–97; PULSE 99–105; RESP 16; TEMP 36–36.6; O2SAT 98–100
[2022-02-10] MEDS: Normal Saline Flush 10 ML SYR IVP (09:08)
[2022-02-10] MEDS: IMMUNE GLOBULIN 5 GM/50 ML BTL IVPB (09:15)
[2022-02-10] MEDS: IMMUNE GLOBULIN 10 GM/100 ML BTL IVPB (09:46)
[2022-02-10] MEDS: IMMUNE GLOBULIN 40 GM/400 ML BTL IVPB (10:24)
[2022-02-11] VITALS (8 sets, daily range): BP systolic 144–173; BP diastolic 86–99; PULSE 96–108; RESP 16; TEMP 36.2–36.6; O2SAT 96–98
[2022-02-11] MEDS: Normal Saline Flush 10 ML SYR IVP (09:18)
[2022-02-11] MEDS: IMMUNE GLOBULIN 5 GM/50 ML BTL IVPB (09:18)
[2022-02-11 09:29] LABS: Anion Gap 9.1 mmol/L (3-11); BUN 4 mg/dL (7-18); CO2 24.9 mmol/L (21.0-32.0); CREATININE 0.8 mg/dL (0.70-1.30); Calcium 8.6 mg/dL (8.5-10.1); Chloride 96 mmol/L (98-107); Glucose 148 mg/dL (74-106); Potassium 3.8 mmol/L (3.5-5.1); Sodium 130 mmol/L (136-145)
[2022-02-11] MEDS: IMMUNE GLOBULIN 10 GM/100 ML BTL IVPB (09:52)
[2022-02-11] MEDS: IMMUNE GLOBULIN 40 GM/400 ML BTL IVPB (10:28)
[2022-02-11 13:36] LABS: Albumin 60.4 % (55.8-66.1); Albumin g/dL 3.6 g/dL (3.6-5.2)
[2022-02-12] VITALS (7 sets, daily range): BP systolic 125–154; BP diastolic 81–94; PULSE 92–108; RESP 17–18; TEMP 36.3–36.7; O2SAT 96–99
[2022-02-12] MEDS: Normal Saline Flush 10 ML SYR IVP (11:17)
[2022-02-12] MEDS: IMMUNE GLOBULIN 5 GM/50 ML BTL IVPB (11:17)
[2022-02-12] MEDS: IMMUNE GLOBULIN 10 GM/100 ML BTL IVPB (11:54)
[2022-02-12] MEDS: IMMUNE GLOBULIN 40 GM/400 ML BTL IVPB (12:33)
[2022-02-17 15:22] LABS: Misc Referral (MAYO) See Comments
== END 2022-02-18 23:59 | disposition home or self-care (01) ==
LOC: INF 02:33
PROVIDERS: PCP Nurse Practitioner Adult Health; Visit Provider Psychiatry & Neurology Neurology
DX: G62.9 Polyneuropathy, unspecified (principal); G61.0 Guillain-Barre syndrome
CPT/HCPCS: 36415; 80048; 96365; 96366; 84165; 84181; J1459

== ENCOUNTER 2022-03-13 00:36 | Outpatient (RCR) | payer OTHER, MEDICARE, BC, SELFPAY ==
[2022-02-19 00:23] VITALS: BP 151/90; PULSE 92; RESP 17; TEMP 36.5
[2022-03-11 09:20] VITALS: BP 128/89; PULSE 95; RESP 17; TEMP 36.5; O2SAT 97
[2022-03-11] MEDS: IMMUNE GLOBULIN 5 GM/50 ML BTL IVPB (09:25)
[2022-03-11] MEDS: Normal Saline Flush 10 ML SYR IVP (09:25)
[2022-03-11 09:43] VITALS: BP 133/90; PULSE 92; RESP 17; TEMP 36.5; O2SAT 97
[2022-03-11 10:02] VITALS: BP 126/87; PULSE 85; RESP 18; TEMP 36.3; O2SAT 98
[2022-03-11] MEDS: IMMUNE GLOBULIN 10 GM/100 ML BTL IVPB (10:02)
[2022-03-11 10:25] VITALS: BP 135/88; PULSE 86; RESP 17; TEMP 36.2; O2SAT 96
[2022-03-11] MEDS: IMMUNE GLOBULIN 40 GM/400 ML BTL IVPB (10:39)
[2022-03-11 10:52] VITALS: BP 145/87; PULSE 86; RESP 18; TEMP 36.4; O2SAT 97
[2022-03-11 11:25] VITALS: BP 145/87; PULSE 84; RESP 18; TEMP 36.3; O2SAT 99
[2022-03-12 09:15] VITALS: BP 135/88; PULSE 89; RESP 20; TEMP 36.5; O2SAT 97
[2022-03-12] MEDS: Normal Saline Flush 10 ML SYR IVP (09:17)
[2022-03-12] MEDS: IMMUNE GLOBULIN 5 GM/50 ML BTL IVPB (09:29)
[2022-03-12 09:50] VITALS: BP 137/91; PULSE 95; RESP 16; TEMP 36.6; O2SAT 97
[2022-03-12 09:51] LABS: Anion Gap 6.4 mmol/L (3-11); BUN 7 mg/dL (7-18); CO2 26.6 mmol/L (21.0-32.0); CREATININE 0.8 mg/dL (0.70-1.30); Calcium 8.5 mg/dL (8.5-10.1); Chloride 101 mmol/L (98-107); Estimated GFR 97.61 (mL/min/1.73m2); Glucose 110 mg/dL (74-106); Potassium 3.8 mmol/L (3.5-5.1); Sodium 134 mmol/L (136-145)
[2022-03-12] MEDS: IMMUNE GLOBULIN 10 GM/100 ML BTL IVPB (10:01)
[2022-03-12 10:21] VITALS: BP 145/85; PULSE 97; RESP 18; TEMP 36.8; O2SAT 98
[2022-03-12] MEDS: IMMUNE GLOBULIN 40 GM/400 ML BTL IVPB (10:40)
[2022-03-12 10:53] VITALS: BP 148/94; PULSE 89; RESP 16; TEMP 36.6; O2SAT 97
[2022-03-12 11:22] VITALS: BP 130/87; PULSE 88; RESP 16; TEMP 36.8; O2SAT 99
[2022-03-13 09:29] VITALS: BP 136/93; PULSE 98; RESP 22; TEMP 36.2; O2SAT 98
[2022-03-13] MEDS: Normal Saline Flush 10 ML SYR IVP (09:31)
[2022-03-13] MEDS: IMMUNE GLOBULIN 40 GM/400 ML BTL IVPB (09:35)
[2022-03-13 09:45] VITALS: BP 125/85; PULSE 85; RESP 20; TEMP 36.2; O2SAT 98
[2022-03-13] MEDS: IMMUNE GLOBULIN 10 GM/100 ML BTL IVPB ×2 (09:46→11:34)
[2022-03-13] MEDS: IMMUNE GLOBULIN 5 GM/50 ML BTL IVPB (09:47)
[2022-03-13 10:20] VITALS: BP 136/88; PULSE 89; RESP 22; TEMP 36.4; O2SAT 97
[2022-03-13 11:00] VITALS: BP 129/87; PULSE 88; RESP 22; TEMP 36.4; O2SAT 98
[2022-03-13 11:30] VITALS: BP 131/88; PULSE 86; RESP 17; TEMP 36.3; O2SAT 99
== END 2022-03-20 23:59 | disposition home or self-care (01) ==
LOC: INF 00:36
PROVIDERS: PCP Nurse Practitioner Adult Health; Visit Provider Psychiatry & Neurology Neurology
DX: G61.81 Chronic inflammatory demyelinating polyneuritis (principal)
CPT/HCPCS: 36415; 80048; 96365; 96366; J1459

== ENCOUNTER 2022-03-27 01:50 | Outpatient (CLI) | payer OTHER, MEDICARE, BC, SELFPAY ==
--- OUTSIDE RECORDS SUMMARY | 2022-03-27 01:56 | XMS_ITS | Encounter Summary ---
:1955 Author Organization [facility] Address [address] [place] [address] Care Team Providers Name Role Phone Lm Matos MD Primary Care Provider Becka Yang APRN Primary Care Provider [phone] Encounter Details Date Type Department Care Team Description 01/23/2022 Lab Requisition [facility] Outr Resulting Lab, Pathology & Laboratory Provider [facility] [address] [place] [address] Social History Tobacco Use Types Packs/Day Years Used Date Never Assessed Sex Assigned at Date Recorded Not on file documented as of this encounter Plan of Treatment Not on filedocumented as of this encounter Procedures Procedure Name Priority Date/Time Associated Diagnosis Comme nts ACUTE HEPATITIS Routine 01/23/2022 12:31 Results for this PROFILE EDT procedure are i n the results section. documented in this encounter Results ACUTE HEPATITIS PROFILE (01/23/2022 12:31 EDT) Hep B Surface Ag Negative Negative [facility] Hep C Antibody Negative Negative [facility] Hepatitis A NegativeComment: The Negative [facility] Antibody, IgM results of this LABORATORY assay can be falsely SERVICES lowered due to the consumption of Biotin. Hepatitis B Core Negative Negative [facility] Ab, Total LABORATORY SERVICES Specimen Blood - Venous blood (substance) Performing Organization Address City/State/ZIP Code Phon e Number [facility] [address] [place] [address] SERVICES documented in this encounter Visit Diagnoses Not on filedocumented in this encounter Care Teams Heeler Machine Relationship Specialty Start Date End Date Lm Matos MD PCP - General 03/16/14 03/02/22 Becka Yang APRN PCP - [facility] 03/03/[address] [place] [id number] documented as of this encounter
--- OUTSIDE RECORDS SUMMARY | 2022-03-27 01:56 | XMS_ITS | Encounter Summary ---
:[address] [facility] Address [address] [place] [address] Care Team Providers Name Role Phone Lm Matos MD Primary Care Provider Encounter Details Date Type Department Care Team Description 10/26/2018 Hospital Encounter [facility] SUPERVISOR IN CHARGE [address] [facility] [address] [place] [address] [place], [place] [phone] (Wo rk) Social History Tobacco Use Types Packs/Day Years Used Date Never Assessed Sex Assigned at Date Recorded Not on file documented as of this encounter Discharge Diagnoses Diagnosis E83.51 HYPOCALCEMIA E83.51[ICD-10-CM] R73.01 Impaired fasting glucose-R73.01[I CD-10-CM] documented in this encounter Discharge Disposition Disposition Code Departure Means Destination Home or Self [facility]sp documented in this encounter Plan of Treatment Not on filedocumented as of this encounter Procedures Procedure Name Priority Date/Time Associated Diagnosis Comme nts HEMOGLOBIN A1C Routine 10/26/2018 11:40 EDT Resul ts for this procedure are i n the results section . CALCIUM Routine 10/26/2018 11:40 EDT Results for this procedure are i n the results section . ALBUMIN Routine 10/26/2018 11:40 EDT Results for this procedure are i n the results section . documented in this encounter Results HEMOGLOBIN A1C (10/26/2018 11:40 EDT) Hemoglobin A1C 5.6 % [facility] Comment: LABORATORY SERVICES Reference Range: <5.7% Normal 5.7-6.4% Prediabetes =>6.5% Diagnostic for diabetes (if confirmed) Goals for glycemic control in diabetes ADA 2017 For non adults with diabetes: ?? Target <7.0% For children and adolescents with type 1 diabetes: ?? Target <7.5% More or less stringent targets may be appropriate for individual patients. Est Avg Glucose 114 mg/dl [facility] Comment: LABORATORY SERVICES eAG represents the A1c result expressed as average glucose in mg/dl. Specimen Blood Performing Organization Address City/State/ZIP Code Phon e Number [facility] [address] [place] [address] SERVICES CALCIUM (10/26/2018 11:40 EDT) Pathologist Sig nature Calcium 9.3 8.5 - 10.5 mg/dl [facility] Calculated Calcium 9.1 8.5 - 10.5 mg/dl [facility] Specimen Blood Performing Organization Address [facility]/ZIP Code Phon e Number [facility] [address] [place] [address] SERVICES ALBUMIN (10/26/2018 11:40 EDT) Pathologist Sig nature Albumin 4.2 3.4 - 4.9 g/dl [facility] LAB[facility]AT [place] SERVICES Specimen Blood Performing Organization Address City/[facility]/ZIP [facility] Phon e Number [facility] [address] [place] [address] SERVICES documented in this encounter Visit Diagnoses Not on filedocumented in this encounter Care Teams Pusher Operator Relationship Specialty Start Date End Date Lm Matos MD PCP - General 03/16/14 03/02/22 documented as of this encounter
--- OUTSIDE RECORDS SUMMARY | 2022-03-27 01:56 | XMS_ITS | Encounter Summary ---
:1955 Author Organization [facility] [place] [address] Care Team Providers Name Role Phone CeliaBecka DEA Primary Care Provider Encounter Details Date Type Department Care Team Description 12/19/2020 Telephone [place] [facility] [place] [address] Social History Tobacco Use Types Packs/Day Years Used Date Never Smoker Smokeless Tobacco: Never Used Alcohol Use Standard Drinks/Week Comments Yes 0 (1 standard drink = 0.6 oz pure alcoho l) Sex Assigned at Date Recorded Not on file documented as of this encounter Miscellaneous Notes Telephone Encounter - Mell Glasgow - 12/19/2020 11:27 AM EDT Placed outgoing phone call to patient in order to schedule a procedure. Phone Call Outcome: Left voicemail asking for return call. This was the 3rd attempt. If the call is returned, it can be handled by: [facility] Talent Acquisition Sourcer Case in depot documented in this encounter Plan of Treatment Upcoming Encounters Date Type Specialty Care Team Description 04/28/2022 Procedure visit Neurology Raúl Nolen MD [facility] NEUROLOGY DEPT. [place], [place] [address] (Wo rk) documented as of this encounter Visit Diagnoses Not on filedocumented in this encounter Care Teams Denture Model Maker Relationship Specialty Start Date End Date Becka Yang APRN PCP - General Geriatric Medicine 04/28/[address] [place] [address] documented as of this encounter
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
--- OUTSIDE RECORDS SUMMARY | 2022-03-27 01:56 | XMS_ITS | Encounter Summary ---
:1955 Author Organization [facility] Address [address] [place] [address] Care Team Providers Name Role Phone Lm Matos MD Primary Care Provider Becka Yang APRN Primary Care Provider [phone] Encounter Details Date Type Department Care Team Description 01/23/2022 Lab Requisition [facility] Outr Resulting Lab, Pathology & Laboratory Provider [facility] [address] [place] [address] Social History Tobacco Use Types Packs/Day Years Used Date Never Assessed Sex Assigned at Date Recorded Not on file documented as of this encounter Plan of Treatment Not on filedocumented as of this encounter Procedures Procedure Name Priority Date/Time Associated Diagnosis Comme nts ANTI NUCLEAR AB Routine 01/23/2022 12:31 Results for this (JASVIR), IFA EDT procedure are i n the results section. documented in this encounter Results ANTI NUCLEAR AB (JASVIR), IFA (01/23/2022 12:31 EDT) JASVIR Interpretation NegativeComment: Negative [facility] No titer LABORATORY SERVICES performed, JASVIR Screen is negative. Specimen Blood - Venous blood (substance) Narrative [facility] - 01/26/2022 15:45 EDT Results were obtained with the INOVA NOV A Lite HEp-2 JASVIR Kit by indirect immunofluorescence. Performing Organization Address City/State/ZIP Code Phon e Number [facility] [address] [place] [address] SERVICES documented in this encounter Visit Diagnoses Not on filedocumented in this encounter Care Teams Boiler Welder Relationship Specialty Start Date End Date Lm Matos MD PCP - General 03/16/14 03/02/22 Becka Yang APRN PCP - [facility] 03/03/[address] [place] [address] documented as of this encounter
--- OUTSIDE RECORDS SUMMARY | 2022-03-27 01:56 | XMS_ITS | Encounter Summary ---
:1955 Author Organization [facility] [place] [address] Care Team Providers Name Role Phone Becka Yang APRN Primary Care Provider Reason for Visit Reason Onset Date Comments Prior Authorization 11/29/2020 Encounter Details Date Type Department Care Team Description 11/29/2020 Telephone [place]ology at [facility] [place] Mary Martinez Prior Authorization [facility] Analia Ar[facility] [place] [phone] Social History Tobacco Use Types Packs/Day Years Used Date Never Smoker Smokeless Tobacco: Never Used Alcohol Use Standard Drinks/Week Comments Yes 0 (1 standard drink = 0.6 oz pure alcoho l) Sex Assigned at Date Recorded Not on file documented as of this encounter Miscellaneous Notes Telephone Encounter - Mary Martinez [facility] - 11/29/2020 1:29 PM EDT Medication Prior Authorization 4L Gastroenterology / [place] [address] Subscriber Insurance: [employer] Phone: Fax: Physician: Thierry Austin NPI: Return Pharmacy: Phone: Fax: Medication Requested: Lansoprazole Strength:30mg Frequency: Take 1 capsule by mouth twice daily Disp.: 60 Refills: 5 Currently taking: Diagnosis for this medication: Dyshagia, Heartburn ICD-10 code: (R13.10) (R12) Prior medications trialed in this patient: Lansoprazole 30mg once daily, Omeprazole Medication: Outcome/Adverse Reactions:Treatment Failure Decision: Approved Tracking number/Case number/Reference number: [id number] Effective date: Start:11/29/2020 End:11/29/2021 documented in this encounter Plan of Treatment Upcoming Encounters Date Type Specialty Care Team Description 04/28/2022 Procedure visit Neurology Raúl Nolen MD [facility] NEUROLOGY DEPT. [place], [place] [address] (Wo rk) documented as of this encounter Visit Diagnoses Not on filedocumented in this encounter Care Teams Closing Specialist Relationship Specialty Start Date End Date Becka Yang APRN PCP - General Geriatric Medicine 04/28/18 [address] [place] [address] documented as of this encounter
--- OUTSIDE RECORDS SUMMARY | 2022-03-27 01:56 | XMS_ITS | Encounter Summary ---
:1955 Author Organization [facility] [address] Care Team Providers Name Role Phone AroldoBecka Cazares GAS GENERATOR OPERATOR Primary Care Provider Encounter Details Date Type Department Care Team Description 03/18/2021 Telephone [place] [facility] [place] [address] Social History Tobacco Use Types Packs/Day Years Used Date Never Smoker Smokeless Tobacco: Never Used Alcohol Use Standard Drinks/Week Comments Yes 0 (1 standard drink = 0.6 oz pure alcoho l) Sex Assigned at Date Recorded Not on file documented as of this encounter Miscellaneous Notes Telephone Encounter - Riccardo Brooks - 03/18/2021 3:06 PM EDT Inbound/Outbound: Outbound Spoke to Patient/Left Message: unable to leave message. Phone rings and rings Notes: Outbound call to patient to schedule motility lab testing from referral. unable to leave message. Phone rings and rings. Sending letter Return calls can be handled by: [facility] Nuclear Equipment Design Engineer documented in this encounter Plan of Treatment Upcoming Encounters Date Type Specialty Care Team Description 04/28/2022 Procedure visit Neurology Raúl Nolen MD [facility] NEUROLOGY DEPT. [place], [place] [address] (Wo rk) documented as of this encounter Visit Diagnoses Not on filedocumented in this encounter Care Teams Senior Consumer Insights Consultant Relationship Specialty Start Date End Date Becka Yang APRN PCP - General Geriatric Medicine 04/28/[address] [place] [address] documented as of this encounter
--- OUTSIDE RECORDS SUMMARY | 2022-03-27 01:56 | XMS_ITS | Encounter Summary ---
:1955 Author Organization [facility] Address [address] [place] [address] Care Team Providers Name Role Phone Lm Matos MD Primary Care Provider Encounter Details Date Type Department Care Team Description 10/26/2018 Phlebotomy Only [facility] - Electrician Elevator Maintenance, [facility] Outpatient [address] [place] [address] Social History Tobacco Use Types Packs/Day Years Used Date Never Assessed Sex Assigned at Date Recorded Not on file documented as of this encounter Plan of Treatment Not on filedocumented as of this encounter Visit Diagnoses Not on filedocumented in this encounter Care Teams Testing Engineer Relationship Specialty Start Date End Date Lm Matos MD PCP - General 03/16/14 03/02/22 documented as of this encounter
--- OUTSIDE RECORDS SUMMARY | 2022-03-27 01:56 | XMS_ITS | Encounter Summary ---
:1955 Author Organization [facility] Address [facility] [address] [place] [address] Care Team Providers Name Role Phone Lm Matos MD Primary Care Provider [phone] Encounter Details Date Type Department Care Team Description 12/27/2013 Hospital Encounter XRay at [facility], CONV Dysphagia [address] [place] [address] Ken Cox MD [facility] [place]STR[place] [address] [place] [address] Social History Tobacco Use Types Packs/Day Years Used Date Never Smoker Smokeless Tobacco: Never Used Alcohol Use Standard Drinks/Week Comments Yes 0 (1 standard drink = 0.6 oz pure alcoho l) Sex Assigned at Date Recorded Not on file documented as of this encounter Medications at Time of Discharge Medication Sig Dispensed Refills Start Date End Date multivit with Take by mouth. 0 10/06/2012 minerals/lutein (MULTIVITAMIN 50 PLUS ORAL) cyclobenzaprine (FLEXERIL) Take 5 mg by mouth 0 5 mg tablet daily as needed. omeprazole (PRILOSEC) 40 Take 1 capsule by 30 capsule 08/201312/21/2014 mg capsule mouth daily. documented as of this encounter Plan of Treatment Upcoming Encounters Date Type Specialty Care Team Description 04/28/2022 Procedure visit Neurology Raúl Nolen MD [facility] NEUROLOGY DEPT. [place], [place] [address] (Wo rk) documented as of this encounter Procedures Procedure Name Priority Date/Time Associated Diagnosis Comme nts XR FLUORO BARIUM Routine 12/27/2013 10:44 AM Dysphagia Resu lts for this SWALLOW (SINGLE EDT procedure ar e in CONTRAST) the results section. documented in this encounter Results XR Fluoro Barium swallow (12/27/2013 10:44 AM EDT) Anatomical Region Laterality Modality N/A Radiographic Imaging Specimen (Source) Anatomical Collection Method Collection Time Re ceived Time Location / / Volume Laterality 12/27/2013 10:44 AM EDT Narrative 12/27/2013 11:30 AM EDT Examination BARIUM SWALLOW Clinical History dysphagia, hx of stricture ?level of pagan g up Comparison None Technique Double contrast esophagram was performed . Fluoroscopic spot films were obtained. if barium tablet was given, ?? indicate here ?? Fluoro time: (one minute 16 seconds) ?? Findings The esophagus is normal in course and ca liber, and is well distended on double contrast views. The mucosal pattern is n ormal. The gastroesophageal junction is normally positioned. Esophageal peristal sis is normal. No gastroesophageal reflux was elicited with provocative man euvers. The imaged portions of the stomach and small bowel are normal. ?? Impression Normal barium swallow study. Film and interpretation reviewed by the attending Procedure Note Jacques Gonzalez MD - 12/27/2013Format ting of this note might be different from the original. Examination BARIUM SWALLOW Clinical History dysphagia, hx of stricture ?level of pagan g up Comparison None Technique Double contrast esophagram was performed . Fluoroscopic spot films were obtained. if barium tablet was given, indicate here Fluoro time: (one minute 16 seconds) Findings The esophagus is normal in course and ca liber, and is well distended on double contrast views. The mucosal pattern is n ormal. The gastroesophageal junction is normally positioned. Esophageal peristal sis is normal. No gastroesophageal reflux was elicited with provocative man euvers. The imaged portions of the stomach and small bowel are normal. Impression Normal barium swallow study. Film and interpretation reviewed by the attending Ken Brennan MD IMG FLUORO ORDERABLES documented in this encounter Visit Diagnoses Diagnosis Dysphagia Dysphagia, unspecified documented in this encounter Care Teams Film Crew Member Relationship Specialty Start Date End Date Lm Matos MD PCP - General 05/13/10 04/27/18 [address] [place] [address] documented as of this encounter
--- OUTSIDE RECORDS SUMMARY | 2022-03-27 01:56 | XMS_ITS | Encounter Summary ---
:1955 Author Organization [facility] [place] [address] Care Team Providers Name Role Phone Lm Matos MD Primary Care Provider [phone] Encounter Details Date Type Department Care Team Description 08/21/2011 External Results Spine Center at [facility] non Provider, [place] [address] Social History Tobacco Use Types Packs/Day Years Used Date Never Smoker Smokeless Tobacco: Never Used Alcohol Use Standard Drinks/Week Comments Yes 0 (1 standard drink = 0.6 oz pure alcoho l) Sex Assigned at Date Recorded Not on file documented as of this encounter Plan of Treatment Upcoming Encounters Date Type Specialty Care Team Description 04/28/2022 Procedure visit Neurology Raúl Nolen MD [facility] NEUROLOGY DEPT. [place], [place] [address] (Wo rk) documented as of this encounter Procedures Procedure Name Priority Date/Time Associated Diagnosis Comme nts XR LUMBAR SPINE 2 OR 3 VIEWS Routine 08/10/2011 *XR GENERIC CERVICAL SPINE Routine 02/07/2011 *XR GENERIC CERVICAL SPINE Routine 02/07/2011 XR THORACIC SPINE 2 VIEW INCLUDING Routine 02/07/2011 SWIMMERS VIEW documented in this encounter Results XR lumbar spine 2 or 3 views (08/10/2011) Anatomical Region Laterality Modality L-spine N/A Radiographic Imaging Narrative This result has an attachment that is no t available. Scanning Provider IMG DX ORDERABLES *XR generic cervical spine (02/07/2011) Anatomical Region Laterality Modality Radiographic Imaging Narrative This result has an attachment that is no t available. Scanning Provider IMG DX ORDERABLES XR thoracic spine 2 view including swimmers view (02/07/2011) Anatomical Region Laterality Modality N/A Radiographic Imaging Narrative This result has an attachment that is no t available. Scanning Provider IMG DX ORDERABLES *XR generic cervical spine (02/07/2011) Anatomical Region Laterality Modality Radiographic Imaging Narrative This result has an attachment that is no t available. Scanning Provider IMG DX ORDERABLES documented in this encounter Visit Diagnoses Not on filedocumented in this encounter Care Teams Enrollment Services Dean Relationship Specialty Start Date End Date Lm Matos MD PCP - General 05/13/10 04/27/[address] [place] [address] documented as of this encounter
--- OUTSIDE RECORDS SUMMARY | 2022-03-27 01:56 | XMS_ITS | Encounter Summary ---
:1955 Author Organization [facility] [place] [address] Care Team Providers Name Role Phone Celia Becka DEA Primary Care Provider Encounter Details Date Type Department Care Team Description 12/03/2020 Telephone [place] [facility] [address] Social History Tobacco Use Types Packs/Day Years Used Date Never Smoker Smokeless Tobacco: Never Used Alcohol Use Standard Drinks/Week Comments Yes 0 (1 standard drink = 0.6 oz pure alcoho l) Sex Assigned at Date Recorded Not on file documented as of this encounter Miscellaneous Notes Telephone Encounter - Mell Glasgow - 12/03/2020 1:48 PM EDT Placed outgoing phone call to patient in order to schedule a procedure. Phone Call Outcome: Left voicemail asking for return call. This was the 1st attempt If the call is returned, it can be handled by: [facility] Moving Picture Operator Ok for APD per review. Case in depot. documented in this encounter Plan of Treatment Upcoming Encounters Date Type Specialty Care Team Description 04/28/2022 Procedure visit Neurology Raúl Nolen MD [facility] NEUROLOGY DEPT. [place], [place] [address] (Wo rk) documented as of this encounter Visit Diagnoses Not on filedocumented in this encounter Care Teams Finish Carpenter Relationship Specialty Start Date End Date Becka Yang APRN PCP - General Geriatric Medicine 04/28/[address] [place] [address] documented as of this encounter
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
--- OUTSIDE RECORDS SUMMARY | 2022-03-27 01:56 | XMS_ITS | Encounter Summary ---
:1955 Author Organization [facility] [place] [address] Care Team Providers Name Role Phone Becka Yang APRN Primary Care Provider Reason for Referral Consultation (Emergency) - Duplicate Referral Specialty Diagnoses / Procedures Referred By Contact Refer red To Contact Neurology Diagnoses Ataxia Wendy Cristina MD [facility] Neurology 3c [facility] [address] [facility] [address] [place] [id number] [place], [place] [address] Referral ID Status Reason Start Expiration Visits Visits Date Date Requested Authorized [id number] Duplicate Consult, 02/06/2022 02/06/2023 1 1 Referral Test & Treat Encounter Details Date Type Department Care Team Description 02/06/2022 Transcribe Orders eDH Incoming Martine Cristina (Pr imary Dx) Referrals MD Wendy [phone] [facility] [address] [place] [address] Social History Tobacco Use Types Packs/Day Years Used Date Never Smoker Smokeless Tobacco: Never Used Alcohol Use Standard Drinks/Week Comments Yes 0 (1 standard drink = 0.6 oz pure alcoho l) Sex Assigned at Date Recorded Not on file documented as of this encounter Plan of Treatment Upcoming Encounters Date Type Specialty Care Team Description 04/28/2022 Procedure visit Neurology Raúl Nolen MD [facility] ER NEUROLOGY DEPT. [place], [place] [address] (Wo rk) Scheduled Referrals Name Type Priority Associated Diagnoses Order S chedule Referral to Outpatient Referral STAT Ataxia Ordered: Neurology 02/06/2022 documented as of this encounter Visit Diagnoses Diagnosis Ataxia - Primary Lack of coordination documented in this encounter Care Teams Refrigeration Lead Relationship Specialty Start Date End Date Becka Yang APRN PCP - General Geriatric Medicine 04/28/[address] [place] [address] documented as of this encounter
--- OUTSIDE RECORDS SUMMARY | 2022-03-27 01:56 | XMS_ITS | Clinical Summary ---
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 Ataxia 02/24/2022 Paresthesia 02/24/2022 Unsteady 02/24/2022 History of fall 02/24/2022 Imbalance 02/24/2022 Encounters Date Type Specialty Care Team Description 03/06/2022 Plan of Care Rehab Therapies Documentation 03/05/2022 Telephone Rehab Therapies Becka Yang Appointm ent L, COMPENSATION AGENT Related 02/10/2022 Lab Requisition Clinical Outr Resulting Laboratory Lab, Provider 01/24/2022 Lab Requisition Clinical Outr Resulting Laboratory Lab, Provider 01/24/2022 Lab Requisition Clinical Outr Resulting Laboratory Lab, Provider 01/24/2022 Lab Requisition Clinical Outr Resulting Laboratory Lab, Provider 01/23/2022 Lab Requisition Clinical Outr Resulting Laboratory Lab, Provider 01/23/2022 Lab Requisition Clinical Outr Resulting Laboratory Lab, Provider from Last 3 Months Social History Tobacco Use Types Packs/Day Years Used Date Never Assessed Sex Assigned at Date Recorded Not on file Plan of Treatment Health Maintenance Due Date Last Done Comments Hepatitis C Screen 1955 COVID-19 Vaccine (#1) 1955 Fall Risk Screening 2020 Procedures Procedure Name Priority Date/Time Associated Comments Diagnosis SPEP, INCLUDES Today 02/10/2022 9:10 Results fo r this QUANTITATION OF EDT procedure ar e in MONOCLONAL SPIKE the results PERFORMABLE section. PROTEIN, TOTAL Today 02/10/2022 9:10 EDT SPEP, INCLUDES Routine 02/10/2022 9:10 Results fo r this QUANTITATION OF EDT procedure ar e in MONOCLONAL SPIKE the results section. ENTEROVIRUS MOLECULAR Routine 01/24/2022 0:00 Res ults for this DETECTION PCR, CSF EDT procedure are in the results section. SYPHILIS SEROLOGY Routine 01/23/2022 20:50 Result s for this EDT procedure are i n the results section. LYME AB Routine 01/23/2022 20:30 Results for this EDT procedure are i n the results section. ANTI NUCLEAR AB Routine 01/23/2022 12:31 Results for this (JASVIR), IFA EDT procedure are i n the results section. ACUTE HEPATITIS Routine 01/23/2022 12:31 Results for this PROFILE EDT procedure are i n the results section. from Last 3 Months Results (ABNORMAL) SPEP, INCLUDES QUANTITATION OF MONOCLONAL SPIKE PERFORMABLE (02/10/2022 9:10 EDT) Albumin % 60.4 55.8 - 66.1 % [facility] Albumin g/dL 3.6 3.6 - 5.2 g/dL [facility] Alpha-1 % 5.5 (H) 2.9 - 4.9 % [facility] Alpha-1 g/dL 0.30 0.15 - 0.40 [facility] g/dL LABOR[facility]ORY SERVICES Alpha-2 % 10.0 7.1 - 11.8 % [facility] Alpha-2 g/dL 0.60 0.50 - 1.00 [facility] g/dL LAB[facility] Beta % 10.6 8.4 - 13.1 % [facility] Beta g/dL 0.60 0.60 - 1.20 [facility] g/dL LAB[facility] Gamma % 13.5 11.1 - 18.8 % [facility] Gamma g/dL 0.80 0.60 - 1.60 [facility] g/dL [facility] SPEP Comment No apparent [facility] monoclonal protein LABOR[facility]ORY SERVICES seen on serum electrophoresisComm ent: See scanned/supplementa ry report. Total Protein 6.0 (L) 6.3 - 8.2 g/dL [facility] Specimen Blood - Venous blood (substance) Narrative This result has an attachment that is no t available. Performing Organization Address [facility] Phon e Number [facility] [address] [place] [address] SERVICES PROTEIN, TOTAL (02/10/2022 9:10 EDT) Specimen Blood - Venous blood (substance) Performing Organization Address [facility] Phon e Number [facility] [address] [place] [address] SERVICES ENTEROVIRUS MOLECULAR DETECTION PCR, CSF (01/24/2022 0:00 EDT) Pathologist Sig nature Enterovirus PCR Rslt Negative Negative [facility] ([facility] Specimen Fluid - Cerebrospinal fluid specimen (sp ecimen) Performing Organization Address [facility] Phon e Number [facility] [address] [place] [phone] SERVICES SYPHILIS SEROLOGY (01/23/2022 20:50 EDT) Pathologist Sig nature Syphilis Serology Negative Negative [facility] Specimen Blood - Venous blood (substance) Performing Organization Address [facility] Phon e Number [facility] [address] [place] [address] SERVICES LYME AB (01/23/2022 20:30 EDT) Pathologist Sig nature Lyme Ab Negative Negative [facility] Specimen Blood - Venous blood (substance) Performing Organization Address [facility] Phon e Number [facility] [address] [place] [address] SERVICES ACUTE HEPATITIS PROFILE (01/23/2022 12:31 EDT) Hep B Surface Ag Negative Negative [facility] Hep C Antibody Negative Negative [facility] Hepatitis A NegativeComment: The Negative [facility] Antibody, IgM results of this LABORATORY assay can be falsely SERVICES lowered due to the consumption of Biotin. Hepatitis B Core Negative Negative [facility] Ab, Total LAB[facility] SERVICES Specimen Blood - Venous blood (substance) Performing Organization Address [facility] Phon e Number [facility] [address] [place] [phone] SERVICES ANTI NUCLEAR AB (JASVIR), IFA (01/23/2022 12:31 EDT) JASVIR Interpretation NegativeComment: Negative [facility] No titer LABORATORY SERVICES performed, JASVIR Screen is negative. Specimen Blood - Venous blood (substance) Narrative [facility] - 01/26/2022 15:45 EDT Results were obtained with the [employer] NOV A Lite HEp-2 JASVIR Kit by indirect immunofluorescence. Performing Organization Address City/State/ZIP Code Phon e Number [facility] [address] [place] [address] SERVICES from Last 3 Months Insurance Payer Benefit Plan / Subscriber ID Effective Dates Phone Addre ss Type Group [employer] [facility] [id number] 2021-Present [address] [place] [address] MEDICARE MEDICARE A/B [id number] 2020-[id number] [place] [address] Nael Nixon Personal/Family Self 1955 [address] ([place]) [place] [address] Nael Nixon Personal/Family Self 1955 [address] (Home) [place] [address] Care Teams Fire Suppression Captain Relationship Specialty Start Date End Date Becka Yang APRN PCP - General [facility] 03/03/22 [address] [place], [place] [id number]
--- OUTSIDE RECORDS SUMMARY | 2022-03-27 01:56 | XMS_ITS | Encounter Summary ---
:1955 Author Organization [facility] [place] [address] Care Team Providers Name Role Phone Lm Matos MD Primary Care Provider Reason for Visit Reason Comments Skin Check Encounter Details Date Type Department Care Team Description 06/25/2015 Office Visit Dermatology at Olga Hassan Sk in tag (Primary Dx); [place]ton URENA [place] (actinic keratosis); [address] [facility] Multiple benign nevi; [place] [address] annulare; [phone] CLAUDE Llamas'andi vizcarra e; RD-DERMATOLOGY History of basal cell carcinoma [place] [id number] Social History Tobacco Use Types Packs/Day Years Used Date Never Smoker Smokeless Tobacco: Never Used Alcohol Use Standard Drinks/Week Comments Yes 0 (1 standard drink = 0.6 oz pure alcoho l) Sex Assigned at Date Recorded Not on file documented as of this encounter Patient Instructions Patient InstructionsRobyn Vogt LPN - 06/25/2015 10:29 AM EST How to Use Carac You have been prescribed Carac by your physician for treatment of Actinic Keratosis You will apply Carac once daily to your face. Using a pea-sized amount, you may apply the cream withyour clean fingertip to your right yarsani, forehead, and left yarsani. Be careful to avoid nostrils, eyes, and mouth. Make sure you wash your hands after application. You may apply sunscreen or moisturizer to the treatment area one hour after Carac application, During Carac treatment, please avoid using any other topical products unless instructed to do so by your physician. You may expect your skin to become red or irritated during this treatment. This is a normal reaction. DO NOT STOP OR SHARE THIS MEDICATION Apply Carac once daily for 21 days. Return for follow up in If you have any questions or concerns, please call the Dermatology Clinic at documented in this encounter Progress Notes Olga Eldridge MD - 06/25/2015 9:45 AM EST DERMATOLOGY ESTABLISHED PATIENT CLINIC NOTE Date of service: 06/25/2015 Nael Nixon : 1955 Provider: Olga Eldridge MD Chief Complaint Patient presents with ??? Skin Check SKIN HISTORY: 1. 2000 BCC, treated with LNX2 2. AK's treated with Carac 3. h/o GA; 03/08/2003 ---Pathologic Diagnosis--- Upper inner left arm, punch biopsy: Palisading granulomatous dermatitis with collagen alteration, consistent with granuloma annulare (see Comment). ---Comment--- The histologic findings correlate with the clinical impression of granuloma annulare. Special stains for organisms can be performed at clinician request. 4. Purpura rash shins-resolved 5. Leonel derm eyebrows 6. BCC, right superior shoulder 09/2010; ED&C 7. 05/31/2013 ---Pathologic Diagnosis--- Skin, right lower back, shave biopsy: Lentiginous junctional dysplastic nevus with moderate atypia, present at the peripheral biopsy edge. 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 MARI Nixon is a 60 y.o. year old male. Established patient, last seen by me on 05/31/2013. Patient presents to the clinic today for a full skin examination. Patient reports a rough area to right forehead, present for 3 years, has not been treated in the past. He reports it is slightly itchy, sensitive when rubbed. Patient has been treated with Carac in the past but is unsure where and when. Also c/o irriated skin tag on right upper inner thigh. Notes new GA lesions on dorsal feet and shins. Asymptomatic. Also, has vadim's on chest and back which he treats with CeraVe cream. Is content with this treatment. ADR: No Known Allergies MEDS: Current Outpatient Prescriptions Medication Sig Dispense Refill ??? cyclobenzaprine (FLEXERIL) 5 mg tablet Take 5 mg by mouth daily as needed. No current facility-administered medications for this visit. ROS General: feeling well Skin: denies other skin complaints EXAM General: NAD, pleasant, cooperative Skin: A total body skin exam except for areas covered by underwear was performed. This includes examination of the skin of the scalp, face, ears, neck, chest, axillae, left and right upper and lower extremities, hands and feet, abdomen, and except the areas covered by underwear were not examined. Significant skin findings: A. Right upper inner thigh: irritated 0.2 cm, sessile, flesh-colored papule B. Scattered on the back and bilateral posterior legs: Multiple, medium-brown, evenly-pigmented macules and papules. All with regular pigment pattern on dermoscopy. No pigmented lesions suspicious for melanoma. C. Left yarsani, right yarsani, forehead: 0.2-0.3cm scaly irregular pink papules D. Scattered 1mm acantholytic pink papules on back and chest. E. Annular and semi-annular plaques composed of erythematous pink papules; no scale or epidermal change. Located on distal extremities. ASSESSMENT/PLAN: A. Skin Tag, irritated ?? Sharp removal of skin tags without anesthestia . Total removed: 1 ?? Procedure: Snip removal using scissors. Discussed procedure and expectations including risks and benefits. Verbal consent obtained. The lesion was removed by scissors technique; specimen was not sent to Pathology. B. Benign appearing nevi with even pigmentation and well defined margins are noted. C. Actinic keratosis ?? Discussed at length treatment options for actinic keratoses including chemical treatment such as 5-FU. Discussed pros and cons of each including 5- FU's one month treatment course and potential for inflammation. Rx: Carac cream: Reviewed pamphlet and photographs which detail expectations and typical reaction totreatment. Redness, crusting, swelling and tenderness of treated skin expected to develop during treatment, and is a sign that the medication is working. Warned not to get in eyes. Discussed using medication as tolerated and stopping use for a day or two if inflammation becomes too intense or patient experiences discomfort. For any severe discomfort or side effects, patient was encouraged to call for further advice and possible evaluation. ?? Apply in the morning and wash off at night. ?? Apply once a day for 3 weeks (Patient advised that it takes about a week to get the reaction started and that it would progress over the next 2 weeks) Should prescription be too expensive patient will call for substitute. Heather Llamas???s disease ?? Discussed using moistuizer to hydrate the skin. CeraVe tub. Pat dry after shower, apply directly out of shower. E. Granuloma Annulare ?? Discussed benign nature of lesion and provided reassurance. No treatment necessary at this time. ?? Widespread/ biopsy proven / asymptomatic Follow up: Return to clinic in 1 year for full skin exam, or sooner if needed. Patient instructed tocall with questions or concerns. I am documenting this encounter acting as the scribe for and in the presence of Dr. Eldridge.: Paz Bull, Clinical Scribe I performed the above scribed service and agree with the accuracy of the documentation in this encounter. Olga Eldridge MD Section of Dermatology [facility] documented in this encounter Plan of Treatment Upcoming Encounters Date Type Specialty Care Team Description 04/28/2022 Procedure visit Neurology Raúl Nolen MD [facility] DR NEUROLOGY DEPT. [place], [place] [address] (Wo rk) documented as of this encounter Visit Diagnoses Diagnosis Skin tag - Primary Unspecified hypertrophic and atrophic co ndition of skin AK (actinic keratosis) Actinic keratosis Multiple benign nevi Benign neoplasm of skin, site unspecifie d Granuloma annulare Other specified erythematous condition Vadim's disease Other specified dermatoses History of basal cell carcinoma Personal history of other malignant neop lasm of skin documented in this encounter Care Teams Lead Supply Worker Relationship Specialty Start Date End Date Lm Matos MD PCP - General 05/13/10 04/27/[address] [place] [address] documented as of this encounter
--- OUTSIDE RECORDS SUMMARY | 2022-03-27 01:56 | XMS_ITS | Encounter Summary ---
:1955 Author Organization [facility] Address [address] [place] [address] Care Team Providers Name Role Phone Lm Matos MD Primary Care Provider Encounter Details Date Type Department Care Team Description 07/07/2018 Phlebotomy Only [facility] Apron OperatorHenrietta examination for pulmonary tuberculosis; - [facility] Outpatient Immunity status testing [address] [place] [address] Social History Tobacco Use Types Packs/Day Years Used Date Never Assessed Sex Assigned at Date Recorded Not on file documented as of this encounter Plan of Treatment Not on filedocumented as of this encounter Procedures Procedure Name Priority Date/Time Associated Diagnosis Comme nts QUANTIFERON TB GOLD Routine 07/07/2018 10:41 Screening examina tion Results for this PLUS EST for pulmonary procedure are in tuberculosis the results section. MEASLES IGG AB Routine 07/07/2018 10:41 Immunity status Result s for this EST testing procedure are i n the results section. RUBELLA IGG ANTIBODY Routine 07/07/2018 10:41 Immunity status Results for this EST testing procedure are i n the results section. VARICELLA IGG Routine 07/07/2018 10:41 Immunity status Results for this ANTIBODY EST testing procedure are i n the results section. MUMPS ANTIBODY IGG Routine 07/07/2018 10:41 Immunity status Re sults for this EST testing procedure are i n the results section. documented in this encounter Results MEASLES IGG AB (07/07/2018 10:41 EST) Measles IgG Ab Positive [facility] Comment: LABORATORY SERVICES Presence of detectable measles virus IgG antibodies. Specimen Blood specimen (specimen) - Blood Performing Organization Address City/State/ZIP Code Phon e Number [facility] [address] [place] [address] SERVICES MUMPS ANTIBODY IGG (07/07/2018 10:41 EST) Mumps Antibiody Positive [facility] IgG Comment: LABORATORY SERVICES Presence of detectable mumps virus IgG antibodies. Specimen Blood specimen (specimen) - Blood Performing Organization Address City/[facility]/ZIP Code Phon e Number [facility] [address] [place] [address] SERVICES RUBELLA IGG ANTIBODY (07/07/2018 10:41 EST) Rubells IgG Ab Positive [facility] Comment: LABORATORY SERVICES Positive for IgG antibodies to Rubella virus. Specimen Blood specimen (specimen) - Blood Performing Organization Address [facility] Phon e Number [facility] [address] [place] [address] SERVICES VARICELLA IGG ANTIBODY (07/07/2018 10:41 EST) Varicella IgG Ab Positive [facility] Comment: LABORATORY SERVICES Presence of detectable Varicella Zoster virus IgG antibodies. Specimen Blood specimen (specimen) - Blood Performing Organization Address [facility] Phon e Number [facility] [address] [place] [address] SERVICES QUANTIFERON TB GOLD PLUS (07/07/2018 10:41 EST) TB Interpretation Negative Negative [facility] Comment: LABORATORY Reference Range: Negative SERVICES No interferon-gamma response to M. tuberculosis antige ns was detected. Infection with M. tuberculosis is unlikely. A si ngle negative result does not exclude infection with M. tuberculosis. In patients at high risk for M. tuberculosis infection , a second test should be considered in accordance with the 2017 ATS/IDSA/CDC Clinical Practive Guidelines for Diagnosis of Tuberculosis in Adul ts and Children [Kim COTTO et. al. Clin. Infect. Dis. 2017:64(2):111-115]. Results were obtained with the [employer] QuantiFERON-TB G old Plus JAGDISH. TB1 Ag minus Nil 0.00 IU/mL [facility] TB2 Ag minus Nil 0.00 IU/mL [facility] Specimen Blood specimen (specimen) - Blood Performing Organization Address [facility] Phon e Number [facility] [address] [place] [address] SERVICES documented in this encounter Visit Diagnoses Diagnosis Screening examination for pulmonary tube rculosis Immunity status testing Antibody response examination documented in this encounter Care Teams Cookie Padder Relationship Specialty Start Date End Date Lm Matos MD PCP - General 03/16/14 03/02/22 documented as of this encounter
--- OUTSIDE RECORDS SUMMARY | 2022-03-27 01:56 | XMS_ITS | Encounter Summary ---
:[address] [facility] Address [address] [place] [address] Care Team Providers Name Role Phone Unknown, Provider Primary Care Provider Encounter Details Date Type Department Care Team Description 03/14/2014 Results Only [facility]- Gena Isaac, [address] [place] [address] [place] [address] (Wo rk) Social History Tobacco Use Types Packs/Day Years Used Date Never Assessed Sex Assigned at Date Recorded Not on file documented as of this encounter Plan of Treatment Not on filedocumented as of this encounter Procedures Procedure Name Priority Date/Time Associated Diagnosis Comme nts SURGICAL PATHOLOGY Routine 03/14/2014 20:27 Resul ts for this EDT procedure are i n the results section. documented in this encounter Results SURGICAL PATHOLOGY (03/14/2014 20:27 EDT) Pathology Report: SURGICAL PATHOLOGY REPORT ENDY STYLES Reports generated via electronic interface contain nicole ginal data; LAB however they are lacking the format of the original re port. Caution should be taken when reading/interpreting unfo rmatted reports. Name: ? NAEL TINAJERO ? Accession #: ? [id number] ? : ? 1955 (Age: 58) ??M ? Collect Date: ? 03/14/2014 ? Location: ? [facility] ? Receive Date: ? 014 ? Provider: GENA DORAN MD Copy to: ALISSA SCOTT MD ? Final Pathologic Diagnosis: APPENDIX, APPENDECTOMY: - ??Acute appendicitis and periappendicitis. Document reviewed and electronically signed by: ROXANN STUART MD Report ??Date: 03/20/2014 17:44 By the signature above, the attending physician certif ies that he/she has personally conducted a gross and/or microscopic examin ation of the described specimens and rendered or confirmed the above diagnosi s. Specimen(s) Received: Appendix Clinical History: Acute appendicitis Gross Description: ? Received in formalin labelled with proper patient identification (initials R, B) and appendix is a vermiform appendix (9. 0 cm in length x ranging from 0.4-1.1 cm in diameter), with a minimal amount of bari ched mesoappendix. The proximal margin is stapled. ? The serosa is white a nd slightly ragged. The cut surface is unremarkable. The wall is thickened, averaging 0.4 cm. ??No di scernable perforation site is identified. The lumen ranges from 0.3 cm to 0.5 cm in diameter and contains no fecalith. The proximal margin is inked black. ? The section adjacent to the proximal stapled ma rgin, multiple leather goods sales representative cross sections (approxima tely 50% of the specimen) and one half of the longitudinally bisected distal tip are submitte d in [address] Quintanilla 03/16/2014 03:26 PM End of Report Specimen Performing Organization Address City/State/ZIP Code Phon e Number [facility] [address] [place] [address] SERVICES [facility] [address] [place] [address] documented in this encounter Visit Diagnoses Not on filedocumented in this encounter Care Teams Packing And Stamping Machine Operator Relationship Specialty Start Date End Date Unknown, Provider, PCP - General 03/15/14 03/15/14 documented as of this encounter
--- OUTSIDE RECORDS SUMMARY | 2022-03-27 01:56 | XMS_ITS | Encounter Summary ---
:1955 Author Organization [place] [place] [address] Care Team Providers Name Role Phone Becka Yang APRN Primary Care Provider Reason for Visit Reason Comments Skin Cancer Examination Encounter Details Date Type Department Care Team Description 11/02/2020 Office Visit Dermatology at [facility] Olga Eldridge Ac tinic keratoses; Payton URENA Seborrheic keratoses; [address] [facility] Nodule of finger of left pagan d; [place] [address] History of dysplastic nevus; [phone] [facility] History of basa l cell carcinoma (BCC) [facility] [place], [place] [address] Social History Tobacco Use Types Packs/Day Years Used Date Never Smoker Smokeless Tobacco: Never Used Alcohol Use Standard Drinks/Week Comments Yes 0 (1 standard drink = 0.6 oz pure alcoho l) Sex Assigned at Date Recorded Not on file documented as of this encounter Patient Instructions Patient InstructionsNery Espinal CCMA - 11/02/2020 10:30 AM EDT Please call to schedule a follow up appointment if the spot on your right forehead does not resolve after approximately 1 month. Actinic Keratoses Diagnosis: You have been diagnosed today with an actinic keratosis. These dry, scaly patches are considered theearliest stage in the development of skin cancer. A significant percentage of actinic keratoses develop into squamous cell carcinoma skin cancer; estimates range from 10-20% over a 10-year period. Because of this risk, actinic keratoses are usually treated. Treatment: You were treated today with liquid nitrogen. This is the most common treatment for actinic keratoses. Liquid nitrogen is extremely cold and freezes the surface of the skin, causing the lesion to flake off. This treatment can be uncomfortable but discomfort should subside after a couple of hours. The area treated will look red and irritated, and it may blister up or turn dark, then fall off. This is normal. Wound care: You do not need any special treatment for the area, but you may find cold compresses and/or a light application of Vaseline soothing. For best results, do not rub or pick at the healing lesion. Expected healing time is 3-4 weeks. Please contact the clinic if the lesion has not fully resolved after 6 weeks. Prevention: Long-term exposure to the sun is the single most significant cause of actinic keratoses, so the bestdefense against them is a comprehensive sun protection program. This includes wearing protective clothing and a wide-brimmed hat, avoiding the sun at midday when ultraviolet rays are strongest, stayingin the shade as much as possible, and wearing a broad-spectrum sunscreen with a sun protection factor (SPF) of at least 30. Contact information: On weekdays (8 am to 5 pm), please call the clinic at [phone]. After 5 pm, and on weekends and holidays, please call the hospital at [phone] and ask for the Tax Map Technician Carpet Installation Specialist. documented in this encounter Progress Notes Olga Eldridge MD - 11/02/2020 10:30 AM EDT Images from the original note were not included. DEPARTMENT OF DERMATOLOGY Established Patient Clinic Note Provider: OLGA ELDRIDGE MD Patient Preferences Preferred name Nael Preferred contact method for results [x] Home [] Cell [x] MyD-H [] Other: Permission to leave detailed message including results Yes Permission to discuss care with (Joan) Relevant social history Past Medical History Y/N Date, location, treatment Melanoma No DN Yes 05/31/13: Right lower back, moderate DN SCC No BCC Yes Right superior shoulder, BCC (LN2, ED&C) AK Yes LN2, Carac Immunosuppression or malignancy No Blistering sunburns or tanning bed use Yes Blistering sunburns; former tanning bed use Other relevant past skin history Yes Farhad's disease, granuloma annulare, seborrheic dermatitis, tinea pedis Family History Y/N Parents, siblings, children Melanoma No NMSC Unknown Other Yes Father - at least AKs Procedure Screening Questions Y/N Allergies to lidocaine or epinephrine No Blood thinners No Pacemaker or defibrillator No History of Present Illness: Nael Nixon is a 65 y.o. established patient, last seen by me on 04/28/2018. Patient returns to clinic today for a full skin examination with the following concerns: - Slightly tender area on the right forehead; treated with 5-FU 3-4 years ago; either didn't resolveor has recurred - Tops of ears; no specific concerns in these areas - Bump on the left index finger; non-tender - New (x a few months) france lesion on the right medial calf Last FSE: 04/28/18 Medications: Reviewed in eD-H Allergies: Reviewed in eD-H Skin Examination: Full skin examination: Patient asked to undress to their comfort level. Verbalized that the provider's preference is that the patient remove all clothing and that the provider will not examine areas patient elects to keep covered. Examination of the scalp, hair, head, face, ears, neck, chest, axillae, abdomen, back, buttocks, genitalia, and upper and lower extremities was normal with the exception ofthe findings below. Significant Findings/Assessment/Plan A. Actinic Keratoses - Ill-defined, gritty papules on the right cheek x 1, right amish x 4, right forehead x 1. - Explained etiology, natural history, and premalignant potential of these lesions. - Discussed treatment with cryotherapy, including the risks and benefits. - Patient elects to proceed with cryotherapy today. - Instructed patient to return to clinic for re-evaluation if lesions do not resolve as expected with this treatment. Will plan to biopsy if the lesion on the right forehead does not resolve. Procedure: Destruction of lesions with cryotherapy (LN2). Locations: As noted above. Number: 6 Discussed procedure and expectations, including risks and benefits. Verbal consent obtained. Treatedwith LN2. There were no complications; Patient tolerated the procedure well. Post-procedure expectations and wound care reviewed. B. Seborrheic Keratoses - Stuck on, waxy papules on the trunk and extremities, including right medial calf. - Explained that these are hereditary and adult-acquired. Reassured patient of benign nature. No treatment necessary unless bothersome. C. Orthopedic Issue - Subcutaneous nodule on the left 2nd finger. - Recommended following up with an orthopedist or PCP. D. History of DN and BCC - Well-healed scars per skin history. - No evidence of recurrence; will continue to monitor. Other: - N/A Follow Up: RTC in 1 year for: [x] FSE [] Follow up [] Note routed to patient care secretary to schedule [x] Recall placed in scheduling system [] Appointment scheduled before exiting If any questions or concerns arise, patient is welcome to return to clinic sooner. Hetal Grande and Nery Espinal [facility] have performed the documentation for this encounter in the presence of and acting as scribes for OLGA ELDRIDGE MD. I performed the above scribed service and agree with the accuracy of the documentation in this encounter. Reviewed and signed by: OLGA ELDRIDGE MD Department of Dermatology [facility] documented in this encounter Plan of Treatment Upcoming Encounters Date Type Specialty Care Team Description 04/28/2022 Procedure visit Neurology Raúl Nolen MD [facility] NEUROLOGY DEPT. [place], [place] [address] (Wo rk) documented as of this encounter Visit Diagnoses Diagnosis Actinic keratoses Actinic keratosis Seborrheic keratoses Nodule of finger of left hand History of dysplastic nevus Personal history of diseases of skin and subcutaneous tissue History of basal cell carcinoma (BCC) documented in this encounter Care Teams Health Underwriter Relationship Specialty Start Date End Date Becka Yang APRN PCP - General Geriatric Medicine 04/28/[address] [place] [address] documented as of this encounter
--- OUTSIDE RECORDS SUMMARY | 2022-03-27 01:56 | XMS_ITS | Clinical Summary ---
:1955 Author Organization [place] [address] Care Team Providers Name Role Phone Becka Yang APRN Primary Care Provider Allergies Active Allergy Reactions Severity Noted Date Comments Mold Other (See Comments) Low 07/26/2017 Reactio ns: sinus congestion Medications Medication Sig Dispensed Refills Start Date End Date Status cyclobenzaprine Take 5 mg by 0 A ctive (FLEXERIL) 5 mg tablet mouth daily as needed. mirtazapine (REMERON) Take by mouth. 0 09/25/2020 Active 7.5 mg Tablet celecoxib (CeleBREX) Take by mouth. 0 08/27/2020 Active 200 mg Capsule thiamine (thiamine) Take by mouth. 0 11/29/2019 Active Cyanocobalamin-Cobamami Place under the 0 11/29/2019 Active de 5,000-100 mcg tongue. Tablet, Sublingual multivit with Take by mouth. 0 10/06/2012 Active minerals/lutein (MULTIVITAMIN 50 PLUS ORAL) lansoprazole (PREVACID) Take 1 capsule 60 capsule 5 11/27/2020 Active 30 mg Capsule, Delayed by mouth 2 times Release(E.C.)Indication daily. s: Dysphagia, unspecified type, Voice hoarseness, Chronic cough, Heartburn, Weight loss, Odynophagia fluorouraciL (EFUDEX) 5 Apply topically 40 g 0 10/08/2021 Active % CreamIndications: to forehead and Actinic keratosis left cheek twice daily for 3 weeks, as tolerated, then stop Active Problems Problem Noted Date Arthritis of right glenohumeral joint 11/27/2020 Chronic right shoulder pain 11/27/2020 Dysphagia 12/21/2013 Esophageal reflux 12/21/2013 Chronic low back pain 10/06/2012 Thoracic back pain 08/20/2011 Encounters Date Type Specialty Care Team Description 02/06/2022 Transcribe Orders Primary Care Wendy Cristina MD Ataxia (Primary Dx) 02/06/2022 Transcribe Orders Primary Care Wendy Cristina MD Ataxia from Last 3 Months Family History Medical History Relation Comments Celiac Disease Neg Hx Colorectal Cancer Neg Hx Esophageal Cancer Neg Hx Inflammatory Bowel Disease Neg Hx Pancreatic Cancer Neg Hx Stomach Cancer Neg Hx Social History Tobacco Use Types Packs/Day Years Used Date Never Smoker Smokeless Tobacco: Never Used Alcohol Use Standard Drinks/Week Comments Yes 0 (1 standard drink = 0.6 oz pure alcoho l) Sex Assigned at Date Recorded Not on file Last Filed Vital Signs Vital Sign Reading Time Taken Comments Blood Pressure 133/84 12/21/2013 9:58 AM EDT Pulse 81 12/21/2013 9:58 AM EDT Temperature - - Respiratory Rate - - Oxygen Saturation 98% 08/20/2011 9:06 AM EST Inhaled Oxygen Concentration - - Weight 91.2 kg (201 lb) 11/27/2020 9:17 AM EDT Height 186.7 cm (6' 1.5) 11/27/2020 9:17 AM EDT Body Mass Index 26.16 11/27/2020 9:17 AM EDT Plan of Treatment Upcoming Encounters Date Type Specialty Care Team Description 04/28/2022 Procedure visit Neurology Raúl Nolen MD [facility] NEUROLOGY DEPT. [place], [place] [address] (Wo rk) Health Maintenance Due Date Last Done Comments Covid-19 Vaccine (#1) 1960 Hepatitis C Screening 1973 Lipid Screening 1973 Tdap adult 1974 Tetanus vaccine 1974 Diabetes Screening (HgbA1C or Glucose) 1995 Colonoscopy 2000 Zoster vaccine (1 of 2) 2005 Advance Directive 2010 Pneumoccocal Vaccine: 65+ (1 - PCV) 2020 Influenza (Flu) vaccine (1 of 1 - Influenza standard 02/19/2022 series) Procedures Procedure Name Priority Date/Time Associated Diagnosis Comme nts EMG SCAN 01/29/2022 12:00 AM Results for this EDT procedure are i n the results section . LAB SCAN 01/23/2022 12:00 AM Results for this EDT procedure are i n the results section . LAB SCAN 01/23/2022 12:00 AM Results for this EDT procedure are i n the results section . from Last 3 Months Results SCAN DOC: EMG (01/29/2022 12:00 AM EDT) Narrative 01/29/2022 12:00 AM EDT This result has an attachment that is no t available. Ordered by an unspecified provider. Scanning Provider MEDIA MGR SCAN EXT ORDR/RSLT SCAN DOC: LAB (01/23/2022 12:00 AM EDT)Only the most recent of2 resultswithin the time period is included. Narrative 01/23/2022 12:00 AM EDT This result has an attachment that is no t available. Ordered by an unspecified provider. Scanning Provider MEDIA MGR SCAN EXT ORDR/RSLT from Last 3 Months Insurance Payer Benefit Plan / Subscriber ID Effective Dates Phone Addre ss Type Group CIGNA CIGNA POS OPEN [id number] 2019-Presen [phone] [address] [place] [address] MEDICARE MEDICARE PART A [id number] 2021-Present [phone] [address] [place] [address] Care Teams Orthopedic Brace Maker Relationship Specialty Start Date End Date Becka Yang APRN PCP - General Geriatric Medicine 04/28/[address] [place] [place] [address]
--- OUTSIDE RECORDS SUMMARY | 2022-03-27 01:56 | XMS_ITS | Encounter Summary ---
:1955 Author Organization [facility] [place] [address] Care Team Providers Name Role Phone Celia Becka DEA Primary Care Provider Reason for Visit Reason Comments Skin Check Encounter Details Date Type Department Care Team Description 04/28/2018 [facility] [place] [facility] Payton UREAN Tinea pedis of both feet; [address] [facility] [place]'s disease; [place] [address] [address] History of basal cell carcinoma [phone] [facility] [place] [address] Social History Tobacco Use Types Packs/Day Years Used Date Never Smoker Smokeless Tobacco: Never Used Alcohol Use Standard Drinks/Week Comments Yes 0 (1 standard drink = 0.6 oz pure alcoho l) Sex Assigned at Date Recorded Not on file documented as of this encounter Progress Notes Olga Eldridge MD - 04/28/2018 1:30 PM EST Images from the original note were not included. DERMATOLOGY ESTABLISHED PATIENT CLINIC NOTE Date of service: 04/28/2018 Nael Nixon : 1955 Provider: Olga Eldridge MD Chief Complaint Patient presents with ??? Skin Check SKIN HISTORY: 1. H/O of BCC (right superior shoulder), treated with LN2, ED&C (1999, 2010) 2. Actinic Keratoses, treated with Carac, LN2 3. Seborrheic dermatitis (eyebrows) 4. Lentiginous junctional dysplastic nevus with moderate atypia (right lower back) 5. Granuloma Annulare (bilateral arms, knees, dorsal hands) 6. Purpura rash (shins), resolved PATIENT PREFERENCES Preferred name: Nael Preferred contact method with results: Cell Phone Detailed message including biopsy results okay?: Yes Are there any other people with whom we may discuss your care?: No HPI Nael Nixon is a 63 y.o. year old male. Established patient, last seen by me on 07/26/2017. Patient denies any significant changes in his health since his last visit. Patient reports a spot on his left paranasal/malar cheek, noticed roughly one year ago. Described as non-tender. Occasionally bleeds. ADR: Allergies Allergen Reactions ??? Mold Other (See Comments) Reactions: sinus congestion MEDS: Current Outpatient Medications Medication Sig Dispense Refill ??? fluorouracil (EFUDEX) 5 % Cream Apply twice daily for 3 weeks as tolerated to affected area on right forehead. 40 g 0 ??? cyclobenzaprine (FLEXERIL) 5 mg tablet Take 5 mg by mouth daily as needed. No current facility-administered medications for this visit. ROS General: feeling well Skin: denies other skin complaints EXAM General: NAD, pleasant, cooperative Skin: Patient asked to undress to their comfort level. Verbalized that the provider's preference is that patient take everything with understanding that areas under clothing will not be examined. Patient elected to keep underwear on and have the following examined: skin of the face, ears, neck, chest,axillae, left and right upper and lower extremities, hands and feet, and abdomen. Significant skin findings: A. Left malar cheek (superior): 0.2cm well-demarcated red scaly plaque [Figure 1] B.Left malar cheek (inferior) : 0.3cm scaly irregular pink papule [Figure 1] Figure 1. A/B Left malar cheek Photo taken and charted with patient consent C. Right Delano: 0.2-0.3cm scaly irregular pink papule D. Bilateral plantar feet: Erythema and scale in moccasin distribution. E. Scattered 1mm acantholytic pink papules on back and chest. F. Well-healed hypopigmented scar per skin history. ASSESSMENT/PLAN: A. ?Early SCC vs. Actinic Keratosis -Will treat as AK -Joint decision to treat with Efudex -Apply to left malar cheek x BID x 3 weeks -OK to stop all together if too much discomfort. Urged patient to call clinic if there is too much pain or infection is suspected. -Patient has Efudex at home, no prescription needed. Patient will call if he needs refill. -Patient instructed to return to clinic for re-evaluation if lesion does not resolve with this treatment; as expected. B,C. Actinic keratoses -Joint decision to treat with Efudex -Apply to affected areas discussed daily or twice daily for 3 weeks -OK to stop all together if too much discomfort. Urged patient to call clinic if there is too much pain or infection is suspected. -Patient has Efudex at home D. Tinea Pedis (Athlete's Foot) - Discussed diagnosis, etiology and genetic disposition. - Noted strong likelihood of recurrence. - Recommended patient keep feet dry, apply anti-fungal powder to shoes, and avoid wearing the same shoes 2 consecutive days. - Advised that other family members with signs/symptoms should be treated as well. - Recommend OTC Lamisil E. [place]???s disease -Can apply Rx: Triamcinolone Cream x BID for up to 14 days a month -Continue CerAVe cream F. H/O BCC -NER, will continue to monitor FOLLOW-UP: RTC in 1 year for follow-up and full skin exam, or sooner if needed. Reminder placed in the system to schedule. Patient instructed to call with any questions or concerns. I am documenting this encounter acting as the scribe for and in the presence of Dr. Eldridge.: SRI LESLIE LPN and Audra Allan I performed the above scribed service and agree with the accuracy of the documentation in this encounter. Olga Eldridge MD Section of Dermatology [facility] documented in this encounter Plan of Treatment Upcoming Encounters Date Type Specialty Care Team Description 04/28/2022 Procedure visit Neurology Raúl Nolen MD [facility] NEUROLOGY DEPT. [place], [place] [address] (Wo rk) documented as of this encounter Visit Diagnoses Diagnosis AK (actinic keratosis) Actinic keratosis Tinea pedis of both feet Farhad's disease Other specified dermatoses History of basal cell carcinoma Personal history of other malignant neop lasm of skin documented in this encounter Care Teams Support Services Tech Relationship Specialty Start Date End Date Becka Yang APRN PCP - General Geriatric Medicine 04/28/18 [address] [place] [address] documented as of this encounter
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
--- OUTSIDE RECORDS SUMMARY | 2022-03-27 01:56 | XMS_ITS | Encounter Summary ---
:1955 [place] [address] Care Team Providers Name Role Phone Lm Matos MD Primary Care Provider [phone] Reason for Visit Reason Comments Skin Lesion Encounter Details Date Type Department Care Team Description 12/21/2012 Follow-Up Dermatology at Angel Hassan MD Bruise (Primary Dx); [facility] Scar; [address] [place] [address] [facility] [phone] RD-DERMATOLOGY [place] [address] (Wo rk) Social History Tobacco Use Types Packs/Day Years Used Date Never Smoker Smokeless Tobacco: Never Used Alcohol Use Standard Drinks/Week Comments Yes 0 (1 standard drink = 0.6 oz pure alcoho l) Sex Assigned at Date Recorded Not on file documented as of this encounter Progress Notes Olga Eldridge MD - 12/21/2012 9:41 AM EDT DERMATOLOGY ESTABLISHED PATIENT CLINIC NOTE Date of service: 12/21/2012 Nael Nixon : 1955 Provider: Olga Eldridge MD Chief Complaint Patient presents with ??? Dermatitis SKIN HISTORY: 1. 2000 BCC, treated with LNX2 2. AK's treated with Carac 3. h/o GA; resolved 4. Purpura rash shins-resolved 5. Leonel derm eyebrows; using OTC hydrocortisone; improved 6.sBCC, right superior shoulder 09/2010; ED&C HPI Nael Nixon is a 57 y.o. male. Presents today for a lesion on his left side present for months, and he didn't remember having it before. He also has a bruise on his right clavicle area that is new and he is unsure how it got there. He has scaly, dry skin on his upper eyebrows/ rastafarian areas that we have been following. ADR: No Known Allergies MEDS: Current Outpatient Prescriptions Medication Sig Dispense Refill ??? hydroCODone-ibuprofen (VICOPROFEN) 7.5-200 mg per tablet Take 1 tablet by mouth daily as needed. ??? cyclobenzaprine (FLEXERIL) 5 mg tablet Take 5 mg by mouth daily as needed. ??? LANSOPRAZOLE (PREVACID ORAL) Take by mouth every other day. ROS General: feeling well Skin: denies other skin complaints EXAM General: NAD, pleasant, cooperative Skin: A focused skin exam was performed. Significant skin findings: A. Flesh colored collection of connective tissue on right flank approx 1 x 0.5cm B. 1cm annular area of eccymosis with central pink papule; right clavicle C. 0.2-0.3cm scaly irregular pink papule(s) above right and left eyebrows D. Deep suntan on face, neck, extremities ASSESSMENT/PLAN: A. Appear to be a scar. B. Eccymosis ? From bite as there is a pink papule centrally. Patient instructed to return to clinic for re-evaluation if lesion does not resolve spontaneously asexpected C. actinic keratosis. -Discussed treating in the Fall 2012. Patient to come back for follow up. D. Encouraged more vigilant sun protection RTC in Fall 2012 for skin check and ? 5FU for C. Patient instructed to call with questions or concerns. I am documenting this encounter acting as the scribe for and in the presence of Dr. Eldridge.: REUBEN MCDANIEL LPN I performed the above scribed service and agree with the accuracy of the documentation in this encounter. Olga Eldridge MD Section of Dermatology [facility] documented in this encounter Plan of Treatment Upcoming Encounters Date Type Specialty Care Team Description 04/28/2022 Procedure visit Neurology Raúl Nolen MD [facility] NEUROLOGY DEPT. [place], [place] [address] (Wo rk) documented as of this encounter Visit Diagnoses Diagnosis Bruise - Primary Contusion of unspecified site Scar Scar condition and fibrosis of skin Actinic keratosis documented in this encounter Care Teams Marine Plumber Relationship Specialty Start Date End Date Lm Matos MD PCP - General 05/13/10 04/27/[address] [place] [address] documented as of this encounter
--- OUTSIDE RECORDS SUMMARY | 2022-03-27 01:56 | XMS_ITS | Encounter Summary ---
:1955 Author Organization [facility] [place] [address] Care Team Providers Name Role Phone Becka Yang APRN Primary Care Provider Encounter Details Date Type Department Care Team Description 11/29/2020 Telephone Pulmonology at [facility] [place] [address] Social History Tobacco Use Types Packs/Day Years [...] Neurology Raúl Nolen MD [facility] NEUROLOGY DEPT. [place], [place] [address] (Wo rk) documented as of this encounter Visit Diagnoses Not on filedocumented in this encounter Care Teams Webfed Offset Press Operator Relationship Specialty Start Date End Date Becka Yang APRN PCP - General Geriatric Medicine 04/28/[address] [place] [address] documented as of this encounter
--- OUTSIDE RECORDS SUMMARY | 2022-03-27 01:56 | XMS_ITS | Encounter Summary ---
:1955 [place] [address] Care Team Providers Name Role Phone mL Matos MD Primary Care Provider [phone] Reason for Visit Reason Onset Date Comments Other 06/25/2015 Telephone Other 07/03/2015 Telephone Encounter Details Date Type Department Care Team Description 06/25/2015 [facility] Other (Telephone) [address] [place] [address] [facility] [phone] RD-DERMATOLOGY [place] [address] (Wo rk) Social History Tobacco Use Types Packs/Day Years Used Date Never Smoker Smokeless Tobacco: Never Used Alcohol Use Standard Drinks/Week Comments Yes 0 (1 standard drink = 0.6 oz pure alcoho l) Sex Assigned at Date Recorded Not on file documented as of this encounter Miscellaneous Notes Telephone Encounter - Rolando Campbell - 07/03/2015 9:47 AM EST Patient verbalized he understood that this was denied, that the efudex replacement was pended. Closing this encounter.,Patient to call if he needs anything additional. Telephone Encounter - Rolando Campbell - 06/25/2015 4:07 PM EST PA started for carac. documented in this encounter Plan of Treatment Upcoming Encounters Date Type Specialty Care Team Description 04/28/2022 Procedure visit Neurology Raúl Nolen MD [facility] NEUROLOGY DEPT. [place], [place] [address] (Wo rk) documented as of this encounter Visit Diagnoses Not on filedocumented in this encounter Care Teams Teletray Operator Relationship Specialty Start Date End Date Lm Matos MD PCP - General 05/13/10 04/27/[address] [place] [address] documented as of this encounter
--- OUTSIDE RECORDS SUMMARY | 2022-03-27 01:56 | XMS_ITS | Encounter Summary ---
:1955 Author Organization [facility] [place] [address] Care Team Providers Name Role Phone Becka Yang APRN Primary Care Provider Encounter Details Date Type Department Care Team Description 10/08/2021 Office Visit Dermatology at [facility] Olga Eldridge Ac tinic keratosis; [place] [facility] Seborrheic keratosis [address] [place] [address] [address] [phone] [facility]-DERMATOLOGY [place], [place] [address] Social History Tobacco Use Types Packs/Day Years Used Date Never Smoker Smokeless Tobacco: Never Used Alcohol Use Standard Drinks/Week Comments Yes 0 (1 standard drink = 0.6 oz pure alcoho l) Sex Assigned at Date Recorded Not on file documented as of this encounter Progress Notes Olga Eldridge MD - 10/08/2021 3:30 PM EDT Images from the original note were not included. DEPARTMENT OF DERMATOLOGY Medical Dermatology Clinic Provider: OLGA ELDRIDGE MD Patient's preferred name Nael Preferred contact method for results [x]Phone home [x]myD-H []Letter Detailed phone message OK? Yes Are there any other people with whom we may discuss your care? 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 Patient returns to clinic today for full skin exam, with the following: - Right forehead has a lesion that bleeds on its on. Some pain. Treated with LN2 in the past. - Left restorationism has a tender area - Both hands, both sides have been intensely itching and burning. Same sensation as what patient feels on his trunk this time of year. Using OTC lidocaine cream and CeraVe. Some relief with use. - Ganglion cyst removed from left pointer finger last week. Sutures comes out tomorrow 10/09/21. Last visit at Dermatology: 11/02/2020 Last visit with this provider: 11/02/2020 Medications: Reviewed in eD-H Allergies: Reviewed in eD-H Skin Examination: Full skin examination: Patient asked to undress to their comfort level. Verbalized that the provider???s preference is that the patient remove all clothing and that the provider will not examine areas patient elects to keep covered. Patient elects to keep underwear on and have the following examined: s calp, hair, face, ears, neck, chest, axillae, abdomen, back, and upper and lower extremities. Genitalia and buttocks were not examined. Assessment/Plan Actinic keratosis - ill defined gritty papules on the vertex scalp x3 - Reviewed diagnosis with patient and treatment options. - Patient opted to proceed with liquid nitrogen with two freeze thaw cycles Number of lesions - 3 The patient's consent for liquid nitrogen was obtained. Risks and benefits were explained. The possible need for additional liquid nitrogen was reviewed. Risks of increased pigmentation, decreased pigmentation, blister formation, infection, pain, and recurrence were all discussed. The patient tolerated the procedure well. Wound care was reviewed. Field cancerization/actinic keratoses - diffuse actinic damage and actinic keratoses in the following matthews as listed below. Field Severity Method of treatment Expected time frame forehead, left cheek mild Efudex Spring 2021 for 3 weeks - Discussed systemic therapy options to decrease skin cancer risk including acitretin and nicotinamide. Opted to proceed with: Rx Efudex Seborrheic keratoses - stuck on brown/france waxy papules on the trunk and extremities. - Reassured of the benign nature of these lesions. No treatment needed. Neuropathy- Non Derm. - Suggest following up with PCP. History of DN and BCC - Well-healed scars per skin history. - No evidence of recurrence; will continue to monitor. Other: ??? N/A RTC: 1 year for FSE []Note routed to racing secretary [x]Recall placed in scheduling system []Appointment scheduled at checkout Scribe attestation: Catalina Ponce LPN has performed the documentation for this encounter in the presence of and acting as a scribe for OLGA ELDRIDGE MD. I performed the above scribed service and agree with the accuracy of the documentation in this encounter. Reviewed and signed by: OLGA ELDRIDGE MD Dermatology [facility] documented in this encounter Plan of Treatment Upcoming Encounters Date Type Specialty Care Team Description 04/28/2022 Procedure visit Neurology Raúl Nolen MD [facility] NEUROLOGY DEPT. [place], [place] [address] (Wo rk) documented as of this encounter Visit Diagnoses Diagnosis Actinic keratosis Seborrheic keratosis Other seborrheic keratosis documented in this encounter Care Teams Chainstitch Sewing Machine Operator Relationship Specialty Start Date End Date Becka Yang APRN PCP - General Geriatric Medicine 04/28/18 [address] [place] [address] documented as of this encounter
--- OUTSIDE RECORDS SUMMARY | 2022-03-27 01:56 | XMS_ITS | Encounter Summary ---
:1955 Author Organization [facility] Address [address] [place] [address] Care Team Providers Name Role Phone Lm Matos MD Primary Care Provider Encounter Details Date Type Department Care Team Description 07/07/2018 Hospital Encounter [facility] MD Tucker [address] [place] [address] [place], [address] [place] [id number] (Wo rk) Social History Tobacco Use Types Packs/Day Years Used Date Never Assessed Sex Assigned at Date Recorded Not on file documented as of this encounter Discharge Disposition Disposition Code Departure Means Destination Home or Self Prison documented in this encounter Plan of Treatment Not on filedocumented as of this encounter Visit Diagnoses Not on filedocumented in this encounter Care Teams Cash Posting Specialist Relationship Specialty Start Date End Date Lm Matos MD PCP - General 03/16/14 03/02/22 documented as of this encounter
--- OUTSIDE RECORDS SUMMARY | 2022-03-27 01:56 | XMS_ITS | Encounter Summary ---
:1955 Author Organization [facility] Address [address] [place] [address] Care Team Providers Name Role Phone Lm Matos MD Primary Care Provider Becka Yang APRN Primary Care Provider [phone] Encounter Details Date Type Department Care Team Description 01/24/2022 Lab Requisition [facility] Outr Resulting Lab, Pathology & Laboratory Provider [facility] [address] [place] [address] Social History Tobacco Use Types Packs/Day Years Used Date Never Assessed Sex Assigned at Date Recorded Not on file documented as of this encounter Plan of Treatment Not on filedocumented as of this encounter Procedures Procedure Name Priority Date/Time Associated Comments Diagnosis ENTEROVIRUS MOLECULAR Routine 01/24/2022 0:00 Res ults for this DETECTION PCR, CSF EDT procedure are in the results section. documented in this encounter Results ENTEROVIRUS MOLECULAR DETECTION PCR, CSF (01/24/2022 0:00 EDT) Pathologist Sig nature Enterovirus PCR Rslt Negative Negative [facility] Specimen Fluid - Cerebrospinal fluid specimen (sp ecimen) Performing Organization Address City/State/ZIP Code Phon e Number [facility] [address] [place] [address] SERVICES documented in this encounter Visit Diagnoses Not on filedocumented in this encounter Care Teams Resident Services Manager Relationship Specialty Start Date End Date Lm Matos MD PCP - General 03/16/14 03/02/22 Becka Yang APRN PCP - [facility] 03/03/22 [address] [place] [address] documented as of this encounter
--- OUTSIDE RECORDS SUMMARY | 2022-03-27 01:56 | XMS_ITS | Encounter Summary ---
:1955 Author Organization [facility] Address [address] [place] [address] Care Team Providers Name Role Phone Lm Matos MD Primary Care Provider Becka Yang APRN Primary Care Provider [phone] Encounter Details Date Type Department Care Team Description 02/10/2022 Lab Requisition [facility] Outr Resulting Lab, Pathology & Laboratory Provider [facility] [address] [place], [place] [address] Social History Tobacco Use Types Packs/Day Years [...] in MONOCLONAL SPIKE the results PERFORMABLE section. SPEP, INCLUDES Routine 02/10/2022 9:10 Results fo r this QUANTITATION OF EDT procedure ar e in MONOCLONAL SPIKE the results section. PROTEIN, TOTAL Today 02/10/2022 9:10 EDT documented in this encounter Results (ABNORMAL) SPEP, INCLUDES QUANTITATION OF MONOCLONAL SPIKE PERFORMABLE (02/10/2022 9:10 EDT) Albumin % 60.4 55.8 - 66.1 % [facility] Albumin g/dL 3.6 3.6 - 5.2 g/dL [facility] Alpha-1 % 5.5 (H) 2.9 - 4.9 % [facility] Alpha-1 g/dL 0.30 0.15 - 0.40 [facility] g/dL LABORATORY SERVICES Alpha-2 % 10.0 7.1 - 11.8 % [facility] Alpha-2 g/dL 0.60 0.50 - 1.00 [facility] g/dL LABORATORY SERVICES Beta % 10.6 8.4 - 13.1 % [facility] Beta g/dL 0.60 0.60 - 1.20 [facility] g/dL LABORATORY SERVICES Gamma % 13.5 11.1 - 18.8 % [facility] Gamma g/dL 0.80 0.60 - 1.60 [facility] g/dL LABORATORY SERVICES SPEP Comment No apparent [facility] monoclonal protein LABORATORY SERVICES seen on serum electrophoresisComm ent: See scanned/supplementa ry report. Total Protein 6.0 (L) 6.3 - 8.2 g/dL [facility] Specimen Blood - Venous blood (substance) Narrative This result has an attachment that is no t available. Performing Organization Address City/State/ZIP Code Phon e Number [facility] [address] [place] [address] SERVICES PROTEIN, TOTAL (02/10/2022 9:10 EDT) Specimen Blood - Venous blood (substance) Performing Organization Address City/State/ZIP Code Phon e Number [facility] [address] [place] [address] SERVICES documented in this encounter Visit Diagnoses Not on filedocumented in this encounter Care Teams Mobile Home Set Up Person Relationship Specialty Start Date End Date Lm Matos MD PCP - General 03/16/14 03/02/22 Becka Yang APRN PCP - General Family Medicine - [facility] 03/03/[address] [place] [address] documented as of this encounter
--- OUTSIDE RECORDS SUMMARY | 2022-03-27 01:56 | XMS_ITS | Encounter Summary ---
:1955 Author Organization [facility] [place] [address] Care Team Providers Name Role Phone Celia Becka DEA Primary Care Provider Reason for Visit Reason Onset Date Comments Reminder Appointment 11/27/2020 Encounter Details Date Type Department Care Team Description 11/27/2020 Telephone Gastroenterology [place] [facility] Mary Martinez Reminder Appointment [facility] [place] [address] Social History Tobacco Use Types Packs/Day Years Used Date Never Smoker Smokeless Tobacco: Never Used Alcohol Use Standard Drinks/Week Comments Yes 0 (1 standard drink = 0.6 oz pure alcoho l) Sex Assigned at Date Recorded Not on file documented as of this encounter Miscellaneous Notes Telephone Encounter - Mary Martinez CCMA - 11/27/2020 8:03 AM EDT Called patient to review medications and allergies for their upcoming gastroenterology Type of Appointment: Telehealth appointment. Reach Patient during MA Check: No, Left Message Was unable to reach patient before appointment time Notes for the provider: Notes for the nurse: documented in this encounter Plan of Treatment Upcoming Encounters Date Type Specialty Care Team Description 04/28/2022 Procedure visit Neurology Raúl Nolen MD [facility] NEUROLOGY DEPT. [place], [place] [address] (Wo rk) documented as of this encounter Visit Diagnoses Not on filedocumented in this encounter Care Teams Care Worker Relationship Specialty Start Date End Date Becka Yang APRN PCP - General Geriatric Medicine 04/28/[address] [place] [address] documented as of this encounter
--- OUTSIDE RECORDS SUMMARY | 2022-03-27 01:56 | XMS_ITS | Encounter Summary ---
:1955 Author Organization [facility] [place] [address] Care Team Providers Name Role Phone Becka Yang APRN Primary Care Provider Encounter Details Date Type Department Care Team Description 12/13/2020 Telephone Pulmonology at [facility] [place] [address] Social History Tobacco Use Types Packs/Day Years [...] Nolen MD [facility] NEUROLOGY DEPT. [place], [place] [address] (Wo rk) documented as of this encounter Visit Diagnoses Not on filedocumented in this encounter Care Teams Manager Quality Relationship Specialty Start Date End Date Becka Yang APRN PCP - General Geriatric Medicine 04/28/18 [address] [place], [place] [address] documented as of this encounter
--- OUTSIDE RECORDS SUMMARY | 2022-03-27 01:56 | XMS_ITS | Encounter Summary ---
:1955 Author Organization [facility] Address [address] [place] [address] Care Team Providers Name Role Phone Unavailable Primary Care Provider Unavailable Encounter Details Date Type Department Care Team Description 03/14/2014 Hospital Encounter [facility] - S Unknown, Pro Gerber breen MD 1 [facility] [phone] [place] [address] (Work) [phone] Social History Tobacco Use Types Packs/Day Years [...]
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
--- OUTSIDE RECORDS SUMMARY | 2022-03-27 01:56 | XMS_ITS | Encounter Summary ---
:1955 [place] [address] Care Team Providers Name Role Phone Lm Matos MD Primary Care Provider [phone] Reason for Visit Reason Comments Skin Check full skin examination Encounter Details Date Type Department Care Team Description 05/31/2013 Follow-Up Dermatology at Angel Hassan MD History of basal cell carcinoma (Primary Dx); [facility] Neoplasm of unspecified natu re of bone, soft tissue, and skin; [address] (actinic keratosis); [place] [address] [facility] (granuloma annulare); [phone] RD-DERMATOLOGY Atypical nevi [place], [place] [address] (Wo rk) Social History Tobacco Use Types Packs/Day Years Used Date Never Smoker Smokeless Tobacco: Never Used Alcohol Use Standard Drinks/Week Comments Yes 0 (1 standard drink = 0.6 oz pure alcoho l) Sex Assigned at Date Recorded Not on file documented as of this encounter Progress Notes Iveth Baker LPN - 06/06/2013 11:30 AM EST Quick Note: Letter sent to patient. Leora Katz RN - 06/05/2013 8:31 AM EST Quick Note: Iveth, Please send a letter, thanks. Olga Eldridge MD - 05/31/2013 10:04 AM EST Images from the original note were not included. DERMATOLOGY ESTABLISHED PATIENT CLINIC NOTE Date of service: 05/31/2013 Nael Nixon : 1955 Provider: Olga Eldridge MD Chief Complaint Patient presents with ??? Skin Check full skin examination SKIN HISTORY: 1. 1999 BCC, treated with LNX2 2. AK's treated [...] 6. BCC, right superior shoulder 09/2010; ED&C HPI Nael Nixon is a 58 y.o. year old male. Presents to clinic today for a full skin evaluation. He was last seen by me on 12/21/12 for seborrheic dermatitis, which has resolved. He has been monitoring and observing his skin for changes. There are a couple spots located on his bilateral temples and forehead that have been present for a while and are being monitored. He has no new skin concerns today. ADR: No Known Allergies MEDS: Current Outpatient [...] A total body skin exam except for the genitalia was performed. This includes examination of the skinof the face, ears, neck, chest, axillae, left and right upper and lower extremities, hands, feet, abdomen, back, and buttocks. The genitalia, perineum, and perianal areas were not examined. Significant skin findings: A. several 0.2-0.3cm scaly irregular pink papule(s) located on bilateral eye brows, right taoism, and right post auricular area B. Scattered annular and semi-annular plaques composed of erythematous pink papules; no scale or epidermal change. Located on bilateral knee's, dorsal hands and flexor-arms bilaterally. C. 0.4 mm slightly irregular, atypical dark brown macule, located on the left lower backv D. 0.3-0.6cm light-brown evenly pigmented, well-demarcated macules located on the upper malar as seen in photograph. Photo's taken and charted with patient consent ASSESSMENT/PLAN: A. actinic keratosis . Advised to monitor and observe skin for changes. Call if such occurs AK - Discussed at length the natural history and etiology of actinic keratoses. Discussed premalignent potential of these lesions. Discussed that a surgical procedure would likely be needed if these were to progress to skin cancer. Discussed treatment options. Patient would prefer to follow clinicallyvs treating. 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 Atypical nevus vs dermatofibroma I discussed this condition with the patient and explored therapeutic options. I recommended doing a biopsy for a firm diagnosis. Procedure: Skin biopsy by shave technique Location: left lower back Discussed indications for procedure and expectations including risks and benefits. Verbal consent obtained. Skin prep with alcohol. Local anesthesia with 1% xylocaine, 1/100,000 epinephrine, 0.1 mEq/mLbicarbonate. A sample of the lesion was removed by shave technique to the level of the dermis and submitted to Pathology. Hemostasis obtained (AlCl and/or electrocautery). There were no complications; the pt. tolerated the procedure well. The wound was dressed. Post-procedure expectations, wound care and activity restrictions were reviewed. Follow-up based on pathology results. D. Lentigo Patient reassured. Advised to monitor and observe skin for changes. Follow up appointment in 1 year. Sooner should problems arise. I am documenting this encounter acting as the scribe for and in the presence of Dr. Eldridge. Tamara Smith LPN I performed the above scribed service and agree with the accuracy of the documentation in this encounter. Olga Eldridge MD Section of Dermatology [facility] documented in this encounter Plan of Treatment Upcoming Encounters Date Type Specialty Care Team Description 04/28/2022 Procedure visit Neurology Raúl Nolen MD [facility] DR NEUROLOGY DEPT. [place], [place] [address] (Wo rk) documented as of this encounter Procedures Procedure Name Priority Date/Time Associated Diagnosis Comme nts SPECIMEN TO Routine 05/31/2013 11:06 AM Neoplasm of Results for this PATHOLOGY (NON-OR) EST unspecified nature pro cedure are in of bone, soft the results tissue, and skin section. SURGICAL PATHOLOGY Routine 05/31/2013 11:06 AM Re sults for this REPORT EST procedure are i n the results section. documented in this encounter Results Surgical Pathology Report (05/31/2013 11:06 AM EST) Component Value Ref Test Analysis Performed At [facility] gist Range Method Time Signature Surgical CERNER Pathology ? [facility][note 3] Report ? Provider: ?? OLGA ELDRIDGE ? Pt. Name: ?? CIARA FF, NAEL R ? Acc #: ?[id number] ? Pt. ? Col Date: ?? 05/31/20 13 ?/Sex: ?1955,(58 years),Male ? Rec Date: ?? 05/31/2013 ?LOC: ?[facility] ? SURGICAL PATHOLOGY ? ---Pathologic Diagnosis--- ? Skin, right lower back, shave biopsy: ?Lentiginous junc tional dysplastic nevus with moderate atypia, present at ? the peripheral biopsy edge. ? CR-0 ? Dictated by: ??Shannan Kaufman MD ? Dermatopathology Fellow ? As the attending phys jeanine, I attest that I examined the histologic slides, ? and confirm Dr. Shannan Kaufman' diagnosis. ? 06/01/13 ? BJM ? 06/01/13 Verified by: ? Chele URENA, PhD, [facility] ? Dermatopatholo gist ? (Electronic Si gnature) ? The attending pathologist whose signature appears o n this report has ? reviewed all diagnostic slides and has edited the blas ss and/or ? microscopic portion of the report in rendering the fi nal pathologic ? diagnosis. ? ---Gross Description--- ? A - Labeled/Fixative: Patient demographics, formalin. ? Quantity/Size: Single, 0.8 x 0.4 x 0.1 cm. ? Tissue Description: S have of sarabia-white skin with an eccentric, 0.4 cm ill- ? defined sarabia-brown macule. ? Sections/Processing: Inked and trisected. (T1) ??pps ? ---Clinical Information--- ? Specimen Submitted: ? A - Skin, right lower back, shave biopsy (1) ? Clinical History: ? 0.4 cm slightly irreg ular, atypical dark brown mole, located on the left ? lower back ? Clinical Diagnosis: ? Dermatofibroma vs. atypical nevus Specimen (Source) Anatomical Collection Method Collection Time Re ceived Time Location / / Volume Laterality 05/31/2013 11:06 AM EST Olga Eldridge MD PATHOLOGY/CYTOLOGY ORDERABLE S Performing Organization Address City/State/[place] [address] YANI YOUNGER Specimen to Pathology (NON-OR) (05/31/2013 11:06 AM EST) Specimen Anatomical Collection Method Collection Time Receive d Time (Source) Location / / Volume Laterality AP Specimen 05/31/2013 11:06 05/31/2013 AM EST 11:06 AM EST Narrative YANI HILLSENNIUM - 05/31/2013 11:06 AM EST Specimen requisition ordered. ??Separate Pathology report to follow Olga Eldridge MD PATHOLOGY/CYTOLOGY ORDERABLE S Performing Organization Address City/State/ZIP Code Phon e Number [address] YANI YOUNGER documented in this encounter Visit Diagnoses Diagnosis History of basal cell carcinoma - Primar y Personal history of other malignant neop lasm of skin Neoplasm of unspecified nature of bone, soft tissue, and skin AK (actinic keratosis) Actinic keratosis [place] (granuloma annulare) Other specified erythematous condition Atypical nevi Benign neoplasm of skin, site unspecifie d documented in this encounter Care Teams Lay Out Worker Relationship Specialty Start Date End Date Lm Matos MD PCP - General 05/13/10 04/27/[address] [place] [address] documented as of this encounter
--- OUTSIDE RECORDS SUMMARY | 2022-03-27 01:56 | XMS_ITS | Encounter Summary ---
:1955 Author Organization [facility] [address] Care Team Providers Name Role Phone Lm Matos MD Primary Care Provider Reason for Visit Reason Comments Skin Check Encounter Details Date Type Department Care Team Description 06/25/2016 Office Visit Dermatology at [facility] Olga Eldridge, AK (actinic keratosis); Payton URENA History of basal cell carcinoma; [address] [facility] [place] [address] [address] [phone] [facility]-DERMATOLOGY [place], [place] [address] Social History Tobacco Use Types Packs/Day Years Used Date Never Smoker Smokeless Tobacco: Never Used Alcohol Use Standard Drinks/Week Comments Yes 0 (1 standard drink = 0.6 oz pure alcoho l) Sex Assigned at Date Recorded Not on file documented as of this encounter Patient Instructions Patient CassiusPaz yañez Jose D - 06/25/2016 10:15 AM EST Actinic Keratoses You have been diagnosed today with Actinic Keratosis (AK). These dry, scaly patches are considered the earliest stage in the development of skin cancer. In rare cases, an AK can progress to skin cancer. Because of this risk, AKs are usually treated. You were treated today with Liquid Nitrogen. This is the most common treatment for AKs. Liquid nitrogen is extremely cold, and freezes the surface of the skin, causing the lesion to flake off. Treatment with liquid nitrogen can be uncomfortable, but discomfort should subside after a couple of hours. The area treated will look red and irritated, and it may blister up or turn dark, then fall off. This is normal! You do not need any special treatment for the area, but you may find cold compresses and/or a light application of Vaseline soothing. For best results, do not rub or pick at the healing lesion. Expected healing time is 3-4 weeks. Please contact the Dermatology clinic at [phone] if the lesion has not fully resolved after 6 weeks. If you are calling after hours, please call the mainline at [phone] and ask for the farm mechanic aeronautical products sales engineer. documented in this encounter Progress Notes Sri Leslie LPN - 06/25/2016 10:15 AM EST DERMATOLOGY ESTABLISHED PATIENT CLINIC NOTE Date of service: 06/25/2016 Nale Nixon : 1955 Provider: Olga Eldridge MD [...] organisms can be performed at clinician request. ?? 4. Purpura rash shins-resolved 5. Leonel derm eyebrows 6. BCC, right superior shoulder 09/2010; ED&C ?? 7. 05/31/2013 ---Pathologic Diagnosis--- Skin, right lower back, shave biopsy: Lentiginous junctional dysplastic nevus with moderate atypia, present at the peripheral biopsy edge. ?? 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 HPI Nael Nixon is a 61 y.o. year old male. Established patient, last seen by me on 06/25/15. Patient presents to the clinic today for a full skin examination. Patient reports he was compliant with applying Efudex, only once daily for 2 months to the right lateral brow. Patient reports there is still residual roughness. Patient also reports a brown spot to the left pentecostalism, present for several years, asymptomatic, does not appear to be changing. ADR: No Known Allergies MEDS: Current Outpatient Prescriptions Medication Sig Dispense Refill ??? fluorouracil (EFUDEX) 5 % Cream Apply twice daily for 3 weeks as directed to the bilateral temples and forehead 40 g 0 ??? cyclobenzaprine (FLEXERIL) 5 mg tablet Take 5 mg by mouth daily as needed. No current facility-administered medications for this visit. ROS General: feeling well Skin: denies other skin complaints EXAM General: NAD, pleasant, cooperative Skin: Patient was asked to disrobe to the level of their comfort. A total body skin exam except for areas covered by underwear was performed. This includes examination of the skin of the scalp, face, ears, neck, chest, axillae, left and right upper and lower extremities, hands and feet, back, abdomen, and except the areas covered by underwear were not examined per patient request. Significant skin findings: A. Right eyebrow x 1, right scapha x 1: 0.2-0.3cm scaly irregular pink papules Total: 2 B. Well healed scars per skin history C. Left lateral forehead/pentecostalism: approx 0.8cm faint well-circumscribed light brown patch. No pseudonetwork or rhomboidal structures on dermoscopy ASSESSMENT/PLAN: A. Actinic Keratoses Discussed premalignant potential of lesions with patient and counseled that destruction with liquid nitrogen therapy is recommended. Patient agreed to the procedure after discussing risks/benefits/alternatives of the procedure, including hypopigmentation and discomfort. Wound care reviewed. Procedure Note: Procedure: Destruction of lesions with cryotherapy. Number: 2 Location: as above Discussed procedure and expectations including risks (including risk of hypopigmentation) and benefits. Verbal consent obtained. Frozen with LN2, 15-30 second thaw time, TWICE. There were no complications; the patient tolerated the procedure well. Post-procedure expectations and wound care were reviewed. B. H/O BCC, DN, NER C. Lentigo vs. Macular SK. Benign appearing. Will continue to follow clinically Follow up: Return to clinic in 1 year for full skin exam, or sooner if needed. A reminder letter will be sent to schedule. Patient instructed to call with questions or concerns. I am documenting this encounter acting as the scribe for and in the presence of Dr. Eldridge.: SRI LESLIE LPN and Paz Bull, Clinical Scribe I performed the above scribed service and agree with the accuracy of the documentation in this encounter. Olga Eldridge MD Section of Dermatology [facility] documented in this encounter Plan of Treatment Upcoming Encounters Date Type Specialty Care Team Description 04/28/2022 Procedure visit Neurology Raúl Nolen MD [facility] NEUROLOGY DEPT. [place], [place] [address] (Wo rk) documented as of this encounter Visit Diagnoses Diagnosis AK (actinic keratosis) Actinic keratosis History of basal cell carcinoma Personal history of other malignant neop lasm of skin Lentigo Other dyschromia documented in this encounter Care Teams Allergy Specialist Relationship Specialty Start Date End Date Lm Matos MD PCP - General 05/13/10 04/27/[address] [place] [address] documented as of this encounter
--- OUTSIDE RECORDS SUMMARY | 2022-03-27 01:56 | XMS_ITS | Encounter Summary ---
:1955 Author Organization [facility] [place] [address] Care Team Providers Name Role Phone Becka Yang APRN Primary Care Provider Encounter Details Date Type Department Care Team Description 11/27/2020 Orders Only Gastroenterology at [facility] Thierry Austin Screening for colon [facility] [place] [phone] [facility] [phone] [place] [address] Social History Tobacco Use Types Packs/Day Years [...] visit Neurology Raúl Nolen MD [facility] NEUROLOGY DEPT. [place], [place] [address] (Wo rk) documented as of this encounter Visit Diagnoses Diagnosis Screening for colon cancer Special screening for malignant neoplasm s, colon documented in this encounter Care Teams Hot Room Attendant Relationship Specialty Start Date End Date Becka Yang APRN PCP - General Geriatric Medicine 04/28/18 [address] [place] [address] documented as of this encounter
--- OUTSIDE RECORDS SUMMARY | 2022-03-27 01:56 | XMS_ITS | Encounter Summary ---
:1955 Author Organization [facility] Address [address] [place] [id number] Care Team Providers Name Role Phone Lm Matos MD Primary Care Provider Encounter Details Date Type Department Care Team Description 07/06/2018 Orders Only [facility] Cecelia Hobbs, Immunit y status testing (Primary Dx); Employee [employer] - Main CARLOS metcalf examination for pulmonary tuberculosis [address] [address] Social History Tobacco Use Types Packs/Day Years Used Date Never Assessed Sex Assigned at Date Recorded Not on file documented as of this encounter Plan of Treatment Not on filedocumented as of this encounter Results QUANTIFERON TB GOLD PLUS (07/07/2018 10:41 EST) [facility] TB Interpretation Negative Negative [facility] Comment: LABORATORY Reference Range: Negative SERVICES [...] of Tuberculosis in Adul ts and Children [Eliceoinsohn DM et. al. Clin. Infect. Dis. 2017:64(2):111-115]. Results were obtained with the Qiagen QuantiFERON-TB G old Plus JAGDISH. TB1 Ag minus Nil 0.00 IU/mL [facility] TB2 Ag minus Nil 0.00 IU/mL [facility] Specimen Blood specimen (specimen) - Blood Performing Organization Address City/State/ZIP Code Phon e Number [facility] [address] [place] [address] SERVICES VARICELLA IGG ANTIBODY (07/07/2018 10:41 EST) Varicella IgG Ab Positive [facility] Comment: LABORATORY SERVICES Presence of detectable Varicella Zoster virus IgG antibodies. Specimen Blood specimen (specimen) - Blood Performing Organization Address City/State/ZIP Code Phon e Number [facility] [address] [place] [address] SERVICES RUBELLA IGG ANTIBODY (07/07/2018 10:41 EST) Rubells IgG Ab Positive [facility] Comment: LABORATORY SERVICES Positive for IgG antibodies to Rubella virus. Specimen Blood specimen (specimen) - Blood Performing Organization Address City/State/ZIP Code Phon e Number [facility] [address] [place] [address] SERVICES MUMPS ANTIBODY IGG (07/07/2018 10:41 EST) Mumps Antibiody Positive [facility] IgG Comment: LABORATORY SERVICES Presence of detectable mumps virus IgG antibodies. Specimen Blood specimen (specimen) - Blood Performing Organization Address City/[facility]/ZIP Code Phon e Number [facility] [address] [place] [address] SERVICES MEASLES IGG AB (07/07/2018 10:41 EST) Measles IgG Ab Positive [facility] Comment: LABORATORY SERVICES Presence of detectable measles virus IgG antibodies. Specimen Blood specimen (specimen) - Blood Performing Organization Address [facility]/ZIP [facility] Phon e Number [facility] [address] [place] [address] SERVICES documented in this encounter Visit Diagnoses Diagnosis Immunity status testing - Primary Antibody response examination Screening examination for pulmonary tube rculosis documented in this encounter Care Teams Compensation/Benefits Specialist Relationship Specialty Start Date End Date Lm Matos MD PCP - General 03/16/14 03/02/22 documented as of this encounter
--- OUTSIDE RECORDS SUMMARY | 2022-03-27 01:56 | XMS_ITS | Encounter Summary ---
:1955 Author Organization [facility] [address] Care Team Providers Name Role Phone Lm Matos MD Primary Care Provider [phone] Reason for Visit Reason Comments Skin Check FSE Encounter Details Date Type Department Care Team Description 07/26/2017 Office Visit Dermatology at [facility]; [facility]'s [facility] [address] [facility] [place] [facility] [place] [address] [facility] [place] [id number] Social History Tobacco Use Types Packs/Day Years Used Date Never Smoker Smokeless Tobacco: Never Used Alcohol Use Standard Drinks/Week Comments Yes 0 (1 standard drink = 0.6 oz pure alcoho l) Sex Assigned at Date Recorded Not on file documented as of this encounter Progress Notes Olga Eldridge MD - 07/26/2017 8:45 AM EST DERMATOLOGY ESTABLISHED PATIENT CLINIC NOTE Date of service: 07/26/2017 Nael Nixon : 1955 Provider: Olga Eldridge MD Chief Complaint Patient presents with ??? Skin Check FSE SKIN HISTORY: 1. H/O of BCC (right superior shoulder), treated with LN2, ED&C (1999, 2010) 2. Actinic Keratoses, treated with [place]ac, LN2 3. Seborrheic dermatitis (eyebrows) 4. Lentiginous junctional dysplastic nevus with moderate atypia (right lower back) 5. Granuloma Annulare (bilateral arms, knees, dorsal hands) 6. Purpura rash (shins), resolved HPI Nael Nixon is a 62 y.o. male last seen by me on 06/25/2016. He is here today for a full skin exam. No significant changes in health. Concerns today include a possible reoccurring [place] (previously treated with LN2) above right eyebrow and a skin tag on the right posterior neck. Both are asymptomatic. ADR: No Known Allergies MEDS: Current Outpatient Prescriptions Medication Sig Dispense Refill ??? fluorouracil (EFUDEX) 5 % Cream Apply twice daily for 3 weeks as directed to the bilateral temples and forehead (Patient not taking: Reported on 06/25/2016) 40 g 0 ??? cyclobenzaprine (FLEXERIL) 5 [...] includes examination of the skin of the face, ears, neck, chest, axillae, left and right upper and lower extremities, hands and feet, abdomen, and except the areas covered by underwear were not examined. Significant skin findings: A. Right posterior neck: Sessile, flesh-colored papules B. Scattered 1 mm acantholytic pink papules on back and chest C. Right antihelix x 1, right lateral forehead: 0.2-0.3 cm scaly irregular pink papules ASSESSMENT/PLAN: A. Skin Tags - Asymptomatic. Patient reassured. B. Diamondhead's Disease - Reviewed diagnosis, treatment options, and natural history - Patient declines a renewal of triamcinolone ?? C. Actinic Keratosis - Discussed at length treatment options for actinic keratoses including cryotherapy versus chemical treatment such as 5-FU or PDT. Patient elects to proceed with 5-FU. - One lesion on the right neck treated today with cryotherapy. - Rx: 5-fluorouracil: Apply topically to affected areas on forehead and bilateral temples twice daily as tolerated for 3 weeks. Reviewed pamphlet and photographs, which detail expectations and typical reaction to treatment. Redness, crusting, swelling and tenderness of treated skin expected to develop during treatment and is a sign that the medication is working. Warned not to get in eyes. Discussed using medication as tolerated and stopping use for a day or two if inflammation becomes too intenseor patient experiences discomfort. For any severe discomfort or side effects, patient was encouragedto call for further advice and possible evaluation. Procedure Note: Procedure: Destruction of lesion(s) with cryotherapy. Number: 1 Location: right antihelix Discussed procedure and expectations including risks (including risk of hypopigmentation) and benefits. Verbal consent obtained. Frozen with LN2, 15-30 second thaw time, TWICE. There were no complications; the patient tolerated the procedure well. Post-procedure expectations and wound care were reviewed. FOLLOW UP: Return to clinic in 1 year for full skin exam, or sooner if needed. Reminder put in system to schedule. Patient instructed to call with questions or concerns. I am documenting this encounter acting as the scribe for and in the presence of Dr. Eldridge.: Nery Espinal, [facility] and Blanca Falcon, Clinical Scribe I performed the above scribed service and agree with the accuracy of the documentation in this encounter. Olga Eldridge MD Section of Dermatology [facility] documented in this encounter Plan of Treatment Upcoming Encounters Date Type Specialty Care Team Description 04/28/2022 Procedure visit Neurology Raúl Nolen MD [facility]. [place], [place] [address] (Wo rk) documented as of this encounter Visit Diagnoses Diagnosis Skin tag Unspecified hypertrophic and atrophic co ndition of skin Diamondhead's disease Other specified dermatoses [place] (actinic keratosis) Actinic keratosis documented in this encounter Care Teams Brusher Hand Relationship Specialty Start Date End Date Lm Matos MD PCP - General 05/13/10 04/27/18 [address] [place] [address] documented as of this encounter
--- OUTSIDE RECORDS SUMMARY | 2022-03-27 01:56 | XMS_ITS | Encounter Summary ---
:[address] [facility] Address [address] [place] [address] Care Team Providers Name Role Phone Lm Matos MD Primary Care Provider Becka Yang APRN Primary Care Provider [phone] Encounter Details Date Type Department Care Team Description 01/24/2022 Lab Requisition [facility] Outr Resulting Lab, Pathology & Laboratory Provider [facility] [address] [place] [address] Social History Tobacco Use Types Packs/Day Years Used Date Never Assessed Sex Assigned at Date Recorded Not on file documented as of this encounter Plan of Treatment Not on filedocumented as of this encounter Procedures Procedure Name Priority Date/Time Associated Diagnosis Comme nts SYPHILIS SEROLOGY Routine 01/23/2022 20:50 Result s for this EDT procedure are i n the results section. documented in this encounter Results SYPHILIS SEROLOGY (01/23/2022 20:50 EDT) Pathologist Sig nature Syphilis Serology Negative Negative [facility] Specimen Blood - Venous blood (substance) Performing Organization Address City/State/ZIP Code Phon e Number [facility] [address] [place] [address] SERVICES documented in this encounter Visit Diagnoses Not on filedocumented in this encounter Care Teams Optical Instrument Specialist Relationship Specialty Start Date End Date Lm Matos MD PCP - General 03/16/14 03/02/22 Becka Yang APRN PCP - General [facility] 03/03/22 [address] [place] [address] documented as of this encounter
--- OUTSIDE RECORDS SUMMARY | 2022-03-27 01:56 | XMS_ITS | Encounter Summary ---
:1955 Author Organization [facility] [place] [address] Care Team Providers Name Role Phone Becka Yang APRN Primary Care Provider Reason for Referral Speech Therapy (Routine) - Closed Specialty Diagnoses / Procedures Referred By Contact Refer red To Contact Speech Therapy Diagnoses Dysphagia, unspecified type Voice hoarseness Chronic cough Heartburn Weight loss PetersonynophagThierry Cedeno APRN [facility] [place] [address] [place] [address] Phone: Fax: Referral ID Status Reason Start Date Expiration Date Visits V isits Requested Authorized [id number] Closed Evaluate and 11/27/2020 11/27/2021 12 12 Treat llergy Testing (Routine) - Closed Specialty Diagnoses / Procedures Referred By Contact Refer red To Contact Allergy Diagnoses Dysphagia, unspecified type Voice hoarseness Chronic cough Heartburn Weight loss Odynophagia Thierry Austin APRN [facility] [address] [place] [phone] Fax: Referral ID Status Reason Start Date Expiration Date Visits V isits Requested Authorized [id number] Closed Consult, 11/27/2020 11/27/2021 1 1 Test & Treat Consultation (Routine) - Closed Specialty Diagnoses / Procedures Referred By Contact Refer red To Contact Pulmonology Diagnoses Dysphagia, unspecified type Voice hoarseness Chronic cough Heartburn Weight loss Odynophagia Thierry Austin APRN [facility] [address] [place] [phone] Fax: Referral ID Status Reason Start Date Expiration Date Visits V isits Requested Authorized [id number] Closed Consult, 11/27/2020 11/27/2021 1 1 Test & Treat Consultation (Routine) - Closed Specialty Diagnoses / Procedures Referred By Contact Refer red To Contact Gastroenterology Diagnoses Dysphagia, unspecified type Voice hoarseness Chronic cough Heartburn Weight loss Odynophagia HREM/pH impedance ON PPI for heartburn, cough, dysphagia, voice hoarseness Thierry Austin APRN [facility] 4t Procedures HIGH RESOLUTION ESOPHAGEAL MANOMETRY PH IMPEDANCE - 24 HOUR HREM/pH impedance ON PPI for heartburn, cough, dysphagia, [place] [address] [place] [address] Phone: Fax: Referral ID Status Reason Start Date Expiration Date Visits V isits Requested Authorized [id number] Closed Consult, 11/27/2020 11/27/2021 1 1 Test & Treat Reason for Visit Consultation (Routine) - Closed Specialty Diagnoses / Procedures Referred By Contact Refer red To Contact Gastroenterology Diagnoses NEW DIFFICULTY SWALLOWING PILLS X1 MONTH IN THE CONTEXT OF H/O GERD, CHRONIC DAILY ETOH USE WITH ABERRANT LABS MacLeod, Becka, OUTSIDE [employer] SALES [facility] 4l [address] [facility] [place] [address] [address] [place] [address] Fax: Referral ID Status Reason Start Date Expiration Date Visits V isits Requested Authorized [id number] Closed Consult, Test 10/02/2020 10/02/2021 6 6 [facility] PCP Updated and/or Approved Encounter Details Date Type Department Care Team Description 11/27/2020 TH Visit Gastroenterology at [facility] Thierry Austin Dysphagia, unspecified type; (TeleHealth) [facility] Analia Helms APRN Voice hoarseness; [place] [address] [facility] Medical Chronic cough; [phone] [facility] Heartburn; [place], [place] Weight loss; [address] Odynophagia Social History Tobacco Use Types Packs/Day Years Used Date Never Smoker Smokeless Tobacco: Never Used Alcohol Use Standard Drinks/Week Comments Yes 0 (1 standard drink = 0.6 oz pure alcoho l) Sex Assigned at Date Recorded Not on file documented as of this encounter Last Filed Vital Signs Vital Sign Reading Time Taken Comments Blood Pressure - - Pulse - - Temperature - - Respiratory Rate - - Oxygen Saturation - - Inhaled Oxygen Concentration - - Weight 91.2 kg (201 lb) 11/27/2020 9:17 AM EDT Height 186.7 cm (6' 1.5) 11/27/2020 9:17 AM EDT Body Mass Index 26.16 11/27/2020 9:17 AM EDT documented in this encounter Patient Instructions Patient InstructionsSaThierry guillaume APRN - 11/27/2020 9:00 AM EDT Dear Nael, It was nice to meet you today. I have listed the recommendations we discussed below. Please call theGI department to schedule the investigations if you do not hear from us within 1-2 weeks: [phone]. -Upper endoscopy (Dont start twice daily PPI until after testing) -Colonoscopy -Esophageal manometry with 24hr pH impedence ON PPI -Pulmonary consultation -Allergy medicin -Referral to [facility] for education on supportive measures (e.g. breathing exercises and suppression techniques) Therapeutics: -PCP continue to monitor LFTs. Consider RUQ US -Discuss referral to ENT at [facility] with PCP (patient preference). ENT can consider neuromodulator if deemed appropriate -Following the upper endoscopy increase Lansoprazole to 30mg twice a day 30min- 1hr before breakfast and 30min-1hr before dinner -GERD lifestyle handout RTC in 6 months with me when testing is complete to further consolidate the GI care plan for the patient's local team. Due to the consultative nature of our practice, the patient should continue to work with Becka Yang APRN as the primary point of contact for urgent issues, medication refills and adjustments as needed for continuity of care purposes in between visits to our center based on the recommendations above. GERD (Gastroesophageal reflux disease) LIFESTYLE CHANGES -Weight loss (if appropriate) -Stop smoking if you smoke -Avoid trigger foods like: fatty foods, spicy foods, fried foods, chocolate, coffee, peppermint, carbonated beverages -Eat smaller more frequent meals -Avoid lying down for 2-3 hours after eating a meal or drinking acidic beverages -Elevate HOB 6-8 inches using cinder blocks or a wedge under the mattress -Wear loose fitting clothing documented in this encounter Progress Notes Thierry Austin APRN - 11/27/2020 9:00 AM EDT [facility] TELEMEDICINE PROGRAM Chief Complaint: Nael Nixon is a 65 y.o. patient referred for consultation by Dr. Yang for dysphagia. History of Present Illness: 65 y.o. male with past medical history significant for alcohol use, allergic rhinitis, chronic low back pain, elevated LFTs, granuloma annulare, hyperlipidemia, appendicitiss/p appendectomy 2013, repair of umbilical hernia 2013. 1994 and 1999 had EGD, found a stricture Occasional dysphagia with larger foods and if eating food quickly. More recently had trouble swallowing a pill and felt like he was choking. Sometimes waits to resolve or will vomit these foods up. [place] pill get stuck at level of connie's apple. Feels food get stuck lower down in chest. Trouble swallowing food has remained stable for decades. Chicken more bothersome. Denies dysphagia to liquids. Deniestrouble initiating a swallow. Throat hoarseness, scratchy throat, and cough started 2-3 months ago. Occurring almost daily. If he talks for a while he will have throat hoarseness and cough. Denies coughing after eating. Cough does not wake from sleep. Has allergy to mold, takes anti-histamine, this has been occurring for years, worse in the winter. No relationship to heartburn. Heartburn is well controlled on lansoprazole. Used to take ranitidine for many years. Tried taking lansoprazole more frequently to see if it would help other symptoms. Unsure, of benefit after 1 month.Mostly after eating, especially spicy food. Weight loss. Approximately 20lb over 6 months. Has started eating less food. Celebrex upsets stomach. Denies nausea and vomiting, abdominal pain, 2-3 formed soft BM daily. Denies bloody stool, melena, oily stool. Occasional straining. Denies rectal tenesmus and nocturnal BM. Did the FIT test 1-2 years ago. 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 Medications: Outpatient Medications Prior to Visit Medication Sig Dispense Refill ??? triamcinolone (KENALOG) 0.1 % Cream Apply topically to the twice daily for up to 14 days Each month to rash on torso. (Patient not taking: Reported on 11/02/2020) 80 g 1 ??? fluorouracil (EFUDEX) 5 % Cream Apply twice daily for 3 weeks as tolerated to affected area on right forehead. (Patient not taking: Reported on 04/28/2018) 40 g 0 ??? cyclobenzaprine (FLEXERIL) 5 mg tablet Take 5 mg by mouth daily as needed. No facility-administered medications prior to visit. Allergies: is allergic to mold. Past Medical History: has a past medical history of Allergy (1994), Chronic pain (02/08/2012), Digestive problems (1997), Headache(784.0) (01/2012), and Skin disorder (2002). Past Surgical History: has no past surgical history on file. Family History: family history is not on file. denies family history of colon cancer, IBD, or celiac disease in mother father or other family members Social History: reports that he has never smoked. He has never used smokeless tobacco. He reports current alcohol use. He reports that he does not use drugs. Physical exam: Constitutional: well appearing, no apparent distress Eyes: conjunctiva clear without icterus, pallor, or injection ENT: Nose without external redness or drainage. Mouth with normal dentition; moist mucous membranes CV: No lower extremity peripheral edema or signs of cyanosis Respiratory: Breathing comfortably and speaking in full sentences without evident tachypnea or signsof respiratory distress GI: Abdomen non-distended and non-tender to self-palpation Skin: No visible rashes Psych: Appropriate affect. Intact thought and speech Neuro: Alert and oriented. Moving upper extremities appropriately Questionnaire: No flowsheet data found. Laboratory studies, imaging, and procedures (in summary of my review of prior records): -12/2013 barium swallow: Normal Assessment/Plan: Mr. Nixon is a 65 y.o. patient with past medical history significant for alcohol use, allergic rhinitis, chronic low back pain, elevated LFTs (followed by PCP), granuloma annulare, hyperlipidemia, appendicitis s/p appendectomy 2013, repair of umbilical hernia 2013. #Dysphagia: Occasional dysphagia with larger bites of food and if quickly eating food, stable for decades. More recently had trouble swallowing pills and felt like he was choking. He will eat sometimeswait for the sensation to resolve or will vomit bolus up. Denies dysphagia to liquids and trouble initiating a swallow. #Voice hoarseness/odynophagia/cough: This began 2-3 months ago. Occurring almost daily. Talking for longer periods aggravates. Denies coughing after eating or nocturnal cough. Not associated with heartburn. We discussed upper respiratory tract conditions in depth today. This included discussion on pathophysiology of hypersensitivity and multifactorial etiology. We reviewed the importance of an extensive multidisciplinary evaluation to identify possible contributing factors and irritants. We discussed thefact that it is essential to concurrently control all contributing factors and irritants for a significant duration of time (often 6 months or longer) to significantly improve symptoms. Prognosis and realistic expectations were reviewed - most patients will unfortunately have some degree of chronic symptomatology. Finally we discussed general supportive measures such as behavioral modification and and the role of neuromodulators. I specifically discussed the potential role of acid and non-acid reflux in chronic upper respiratory tract conditions. We also discussed how to explore the possibility of reflux contributing. Will place referral to pulmonary medicine, allergy medicine, [facility] for consultation. Patient prefers ENT at [place], discussed with PCP for referral. #Heartburn: Has had this for many years. Was on ranitidine for 10+ years. Was switched to lansoprazole 10+ years ago. Currently taking lansoprazole 1-3 times a week as needed. Mostly after eating, especially spicy food. Was advised by PCP to take lansoprazole more frequently, did not notice a difference in symptoms. Denies nausea, vomiting, abdominal pain. #Weight loss: Approximately 20 pound weight loss over the past 6 months. Has been eating less dinner. Celebrex upsets his stomach. #Colon cancer screening: Did fit test 1-2 years ago. Last colonoscopy 12 to 15 years ago. Patient agreed to colonoscopy although he does not want it completed at the time of upper endoscopy. #Elevated LFTs: This is noted in his chart. Labs unavailable. Patient would like to continue to follow-up with PCP regarding these findings. PCP can consider right upper quadrant ultrasound. We discussed that complete symptom relief may not be a fully achievable goal for this chronic condition, but that improvement in quality of life, healthy days at work and family functions, and also general symptom improvement may be more reasonable goals. We discussed that treatments should be tried individually and for periods of at least 4-8 weeks to truly assess symptom response. I did my best to answer questions to the fullest ability. We discussed that recommended treatments should be tried individually for at least three months at a time to truly assess for a meaningful response, or as long as tolerated, before changing therapy. Recommendations: Diagnostics: -EGD with anesthesia for dysphagia, odynophagia, cough, voice hoarseness, heartburn, weight loss. Please obtain bx to r/o EOE -Colonoscopy with anesthesia for screening -Esophageal manometry with 24hr pH impedence ON PPI -Pulmonary consultation for evaluation and consideration of neuromodulator if deemed appropriate -Allergy medicine consultation for evaluation -Referral to [facility] for education on supportive measures (e.g. breathing exercises and suppression techniques) Therapeutics: -PCP continue to monitor LFTs. Consider RUQ US -Discuss referral to ENT at [facility] with PCP (patient preference). ENT can consider neuromodulator if deemed appropriate -Following the upper endoscopy increase Lansoprazole to 30mg twice a day 30min- 1hr before breakfast and 30min-1hr before dinner. Remain on/Prescription given for Lansoprazole 30 mg BID - remain on thismedication while awaiting esophageal testing and ensure that you continue this medication while performing esophageal testing. -GERD lifestyle handout RTC in 6 months with me when testing is complete to further consolidate the GI care plan for the patient's local team. Due to the consultative nature of our practice, the patient should continue to work with Becka Yang APRN as the primary point of contact for urgent issues, medication refills and adjustments as needed for continuity of care purposes in between visits to our center based on the recommendations above. TIME SPENT WITH PATIENT Time spent reviewing records prior to this encounter on day of appointment: 2 minutes Time spent during encounter with patient including counselin minutes Time spent documenting encounter after office visit: 10 minutes Approximate total time devoted to this single encounter: 60 minutes Thierry Austin APRN [facility] [place] [address] documented in this encounter Plan of Treatment Upcoming Encounters Date Type Specialty Care Team Description 04/28/2022 Procedure visit Neurology Raúl Nolen MD [facility] NEUROLOGY DEPT. [place] [address] (Wo rk) Scheduled Referrals Name Type Priority Associated Order Schedule Diagnoses Referral to Outpatient Routine Dysphagia, Ordered: Gastroenterology Referral Unspecified Typ e 11/27/2020 Voice hoarseness Chronic cough Heartburn Weight loss Odynophagia Referral to Pulmonology Outpatient Routine Dysphagia, Orde red: Referral Unspecified Type 11/27/2020 Voice hoarseness Chronic cough Heartburn Weight loss Odynophagia Referral to Allergy Outpatient Routine Dysphagia, Ordered: Referral Unspecified Type 11/27/2020 Voice hoarseness Chronic cough Heartburn Weight loss Odynophagia Referral to Speech Outpatient Routine Dysphagia, Ordered: Therapy Referral Unspecified Type 11/27/2020 Voice hoarseness Chronic cough Heartburn Weight loss Odynophagia documented as of this encounter Visit Diagnoses Diagnosis Dysphagia, unspecified type Voice hoarseness Dysphonia Chronic cough Cough Heartburn Weight loss Loss of weight Odynophagia Dysphagia, unspecified documented in this encounter Care Teams Retail Advertising Executive Relationship Specialty Start Date End Date Becka Yang APRN PCP - General Geriatric Medicine 04/28/[address] [place] [address] documented as of this encounter
--- OUTSIDE RECORDS SUMMARY | 2022-03-27 01:57 | XMS_ITS | Encounter Summary ---
:1955 Author Organization [facility] [place] [address] Care Team Providers Name Role Phone Lm Matos MD Primary Care Provider [phone] Encounter Details Date Type Department Care Team Description 02/07/2011 Orders Only Spine Center at [facility] Dragan Lovett MD [facility] [place] [address] SP[facility]ENTER [phone] [place], [place] [address] (Wo rk) Social History Tobacco Use Types Packs/Day Years Used Date Never Assessed Sex Assigned at Date Recorded Not on file documented as of this encounter Plan of Treatment Upcoming Encounters Date Type Specialty Care Team Description 04/28/2022 Procedure visit Neurology Raúl Nolen MD [facility] ER NEUROLOGY DEPT. [place], [place] [address] (Wo rk) documented as of this encounter Procedures Procedure Name Priority Date/Time Associated Diagnosis Comme nts FILM LIBRARY Routine 02/07/2011 11:05 AM Results for this STORAGE ONLY DX EDT procedure ar e in SPINE the results section. documented in this encounter Results FILM LIBRARY- STORAGE ONLY DX SPINE (02/07/2011 11:05 AM EDT) Anatomical Region Laterality Modality Other Specimen (Source) Anatomical Collection Method Collection Time Re ceived Time Location / / Volume Laterality 02/07/2011 11:05 AM EDT Narrative 08/08/2013 6:33 PM EST This is a non-reportable exam. Procedure Note Bo Wade - 08/08/2013Formatting of t his note might be different from the original. This is a non-reportable exam. Dragan Lovett MD [facility] FILM LIBRARY ORDERABLES documented in this encounter Visit Diagnoses Not on filedocumented in this encounter Care Teams Marine Cargo Surveyor Relationship Specialty Start Date End Date Lm Matos MD PCP - General 05/13/10 04/27/[address] [place] [address] documented as of this encounter
--- OUTSIDE RECORDS SUMMARY | 2022-03-27 01:57 | XMS_ITS | Encounter Summary ---
:1955 Author Organization [facility] [place] [address] Care Team Providers Name Role Phone Lm Matos MD Primary Care Provider [phone] Encounter Details Date Type Department Care Team Description 08/19/2011 Abstract Spine Center at [facility] Dragan Lovett MD [facility] [place] [address] SPINE CENTER [phone] [place], [place] [address] (Wo rk) Social History Tobacco [facility] [place], [place] [address] (Wo rk) documented as of this encounter Visit Diagnoses Not on filedocumented in this encounter Care Teams Care Aide Relationship Specialty Start Date End Date Lm Matos MD PCP - General 05/13/10 04/27/18 [address] [place], [place] [id number] documented as of this encounter
--- OUTSIDE RECORDS SUMMARY | 2022-03-27 01:57 | XMS_ITS | Encounter Summary ---
:1955 Author Organization [facility] [place] [address] Care Team Providers Name Role Phone Lm Matos MD Primary Care Provider [phone] Reason for Visit Reason Onset Date Comments Questions 09/30/2010 Encounter Details Date Type Department Care Team Description 09/30/2010 Telephone Dermatology Cori [place] [address] Social History Tobacco Use Types Packs/Day Years Used Date Never Assessed Sex Assigned at Date Recorded Not on file documented as of this encounter Miscellaneous Notes Telephone Encounter - Cori Gilman LPN - 09/30/2010 2:38 PM EDT Spoke with patient to relay his pathology report-ED&C appointment made to treat lesion A documented in this encounter Plan of Treatment Upcoming Encounters Date Type Specialty Care Team Description 04/28/2022 Procedure visit Neurology Raúl Nolen MD [facility] ER DR NEUROLOGY DEPT. [place], [place] [address] (Wo rk) documented as of this encounter Visit Diagnoses Not on filedocumented in this encounter Care Teams Dynamite Packing Machine Operator Relationship Specialty Start Date End Date Lm Matos MD PCP - General 05/13/10 04/27/18 [address] [place] [address] documented as of this encounter
--- OUTSIDE RECORDS SUMMARY | 2022-03-27 01:57 | XMS_ITS | Encounter Summary ---
:1955 Author Organization [facility] [place] [address] Care Team Providers Name Role Phone Lm Matos MD Primary Care Provider [phone] Reason for Visit Reason Comments Skin Check Encounter Details Date Type Department Care Team Description 09/29/2010 Follow-Up Dermatology Olga Eldridge MD BCC (basal cell carcinoma of skin) (Prim johanna Dx); [facility] Per jonathan history of other malignant neoplasm of skin; Drive DR Neoplasm of uncertain behavior of skin [address] [phone] RD-DERMATOLOGY [place] [address] (Wo rk) Social History Tobacco Use Types Packs/Day Years Used Date Never Assessed Sex Assigned at Date Recorded Not on file documented as of this encounter Progress Notes Olga Eldridge MD - 09/29/2010 9:34 AM EDT DERMATOLOGY ESTABLISHED PATIENT CLINIC NOTE Date of service: 09/29/2010 Nael Nixon : 1955 Provider: Olga Eldridge MD Chief Complaint Patient presents with ??? Skin Check SKIN HISTORY: 1. 2000 BCC, treated with LNX2 2. AK's treated with Carac 3. h/o GA; resolved 4. Purpura rash shins-resolved 5. Leonel derm eyebrows; using OTC hydrocortisone; improved HPI Nael Nixon is a 55 y.o. year old male here for a complete skin check with several spots of concern as follows: 1.Following spot left quaker-has photo 2.Recheck right forehead tx with LN2 at last visit; seems to have resolved. 3.Red,round,flat spot on left shoulder present 3 months When questioned about the spot on his lower back; is not aware of any procedures in this area ADR: No Known Allergies MEDS: Current outpatient prescriptions ordered prior to encounter Medication Sig Dispense Refill ??? CIS Free Text Med - patanese ??? fexofenadine (RAYA) 60 mg tablet ??? MULTIVITAMIN (DAILY MULTIPLE ORAL) ??? LANSOPRAZOLE (PREVACID ORAL) ??? DIPHENHYDRAMINE HCL (BENADRYL ORAL) ??? triamcinolone (KENALOG) 0.1 % cream 1 Appl(s), Top, Twice daily PRN ROS General: feeling well Skin: denies other skin complaints EXAM General: NAD, pleasant, cooperative male. Skin: A total body skin exam except for areas covered by underwear was performed. This includes examination of the skin of the face, ears, neck, chest, axillae, left and right upper and lower extremities, hands and feet, abdomen, and except the areas covered by underwear were not examined. : Significant skin findings: A.Left quaker: 1 x 0.5cm brown macule; slight hyperkeratosis B.1.0cm bright red plaque left superior shoulder C. 1.0cm pink slightly depressed papule right lower back at waistband D. 0.7cm abnormal nevus left lateral abdomen ASSESSMENT/PLAN: A. Favor Lentigo vs. SK. No change vs. photo B.LK vs BCC-Procedure: Skin biopsy. Location: left superior shoulder Discussed indications for procedure and expectations including [...] were reviewed. Follow-up based on pathology results. ChelaAppears to be a scar; pt does not have a memory Possible scar-will follow clinically D.Atypical nevus-Procedure: Shave removal of lesion. Location:left lateral abdomen Discussed indications for procedure and expectations including risks and benefits. Verbal consent obtained. Skin prep with alcohol. Local anesthesia with 1% xylocaine, 1/100,000 epinephrine, 0.1 mEq/mLbicarbonate. The lesion was removed by shave technique to the level of the dermis and submitted to Pa thology. Hemostasis obtained. (AlCl and/or electrocautery). There were no complications; the pt. tolerated the procedure well. The wound was dressed. Post-procedure expectations, wound care and activity restrictions were reviewed. Final diameter: 1.0cm Follow-up based on pathology results. E. RTC 1 year Note initiated by: MOE SAMANIEGO Routed to physician for review and changes: Olga Eldridge MD Section of Dermatology [facility] documented in this encounter Plan of Treatment Upcoming Encounters Date Type Specialty Care Team Description 04/28/2022 Procedure visit Neurology Raúl Nolen MD [facility] NEUROLOGY DEPT. [place], [place] [address] (Wo rk) Scheduled Orders Name Type Priority Associated Diagnoses Order S chedule Specimen to Pathology Lab Routine BCC (basal cell car cinoma Ordered: 09/29/2010 (surgical or derm) of skin) documented as of this encounter Procedures Procedure Name Priority Date/Time Associated Diagnosis Comme nts SURGICAL PATHOLOGY Routine 09/29/2010 10:07 AM Diamond dutta for this REPORT EDT procedure are i n the results section. documented in this encounter Results SURGICAL PATHOLOGY REPORT (09/29/2010 10:07 AM EDT) Component Value Ref Test Analysis Performed At [facility] Range Method Time Signature Surgical CERNER Pathology ? [facility] Report ? Provider: ?? OLGA ELDRIDGE ? Pt. Name: ?? CIARA MELCHOR, NAEL R ? Acc #: ?[id number] ? Pt. ? Col Date: ?? 1 ? /Sex: ?1955,(55 years),Male ? Rec Date: ?? 09/29/2010 ? LOC: ?4M ? SURGICAL PATHOLOGY ? ---Pathologic Diagnosis--- ? A - Skin of left superior shoulder, shave biopsy: ? Basal cell carc inoma, multifocal superficial type, extending to the ? peripheral specimen edge. ? B - Skin of left lateral abdomen, shave biopsy: ? 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 component; the edges of the specimen are free of lesion in the planes of ? section examined. ? CR-0 ? Dictated by: ? Estuardo Carroll MD ?Dermatopathology Fellow ? As the attending phys ician, I attest that I examined the histologic slides, ? and confirm Dr. Estuardo Carroll's diagnosis. ? 09/29/10 ? [facility] ? 09/30/10 Verified by: ? Chele URENA, PhD, Noelle ? Dermatopatholo gist ? (Electronic Si gnature) ? The attending pathologist whose signature appears o n this report has ? reviewed all diagnostic slides and has edited the blas ss and/or ? microscopic portion of the report in rendering the fi nal pathologic ? diagnosis. ? ---Microscopic Description--- ? Slides reviewed, microscopic description not recorded . ? ---Gross Description--- ? A - Labeled/Fixative: A Left shoulder, formalin. ? Qty/Size/Weight: ?Single shave, 0.5 cm, pink. ? Sections/Processing: ??Bisected. ??(T1) ? B - Labeled/Fixative: B Left abdomen, formalin. ? Qty/Size/Weight: ?Single shave, 0.9 cm, white with a 0.8-cm, ? brown macule. ? Sections/Processing: ??Trisected. ??(T1) ??vms/SNS ? ---Clinical Information--- ? Specimen Submitted: ? [facility] ? Provider: ?? OLGA ELDRIDGE ? Pt. Name: ?? CIARA FF, NAEL R ? Acc #: ?[id number] ? Pt. ? Col Date: ?? 1 ? /Sex: ?1955,(55 years),Male ? Rec Date: ?? 09/29/2010 ? LOC: ?4M ? SURGICAL PATHOLOGY ? A - 1.0-cm bright read plaque, left superior shoulder skin shave ? B - Atypical nevus 0. 7-cm irregularly pigmented patch ? new; left lateral ? abdomen shave removal ? Clinical History/Diagnosis: ? A - 1.0-cm bright red plaque left superior shoulder ? LK vs BCC ? B - 0.7-cm irregularly pigmented patch ? new Specimen (Source) Anatomical Collection Method Collection Time Re ceived Time Location / / Volume Laterality 09/29/2010 10:07 AM EDT Olga Eldridge MD PATHOLOGY/CYTOLOGY ORDERABLE S Performing Organization Address City/State/ZIP Code Phon e Number [place] [phone] [facility] documented in this encounter Visit Diagnoses Diagnosis BCC (basal cell carcinoma of skin) - Reina candice Basal cell carcinoma of skin, site unspe cified Personal history of other malignant neop lasm of skin Neoplasm of uncertain behavior of skin documented in this encounter Care Teams Roving Technician Relationship Specialty Start Date End Date Lm Matos MD PCP - General 05/13/10 04/27/[address] [place] [address] documented as of this encounter
[2022-03-27] MEDS: Inhaler, Assist Device 1 EACH MC (11:25)
[2022-03-27] MEDS: Albuterol HFA 18 GM 200 PUFF INH IH (11:25)
--- NOTE | 2022-03-27 16:17 | W.PFT ---
Date of service: 03/27/22 Time of Service: 10:09 Pulmonary Function Test Result Requesting Provider Becka Yang Indications: JACOB Interpretation Spirometry: There is no airflow limitation. There is no significant bronchodilator response. Normal MIP. Low MEP. Lung Volumes: Lung volumes are normal. Diffusion Capacity: Normal diffusion. Airway Pressure: Normal airways resistance. Impression Normal pulmonary function testing with likely normal muscle pressures - an isolated decreased MEP has unclear clinical significance. Clinical Correlation therefore is recommended.
== END 2022-03-27 01:51 | disposition home or self-care (01) ==
LOC: RT 01:50
PROVIDERS: PCP Nurse Practitioner Adult Health; Visit Provider Nurse Practitioner Adult Health
DX: R06.02 Shortness of breath (principal); R06.09 Other forms of dyspnea
CPT/HCPCS: 94060; 94726; 94729

== ENCOUNTER 2022-04-10 01:16 | Outpatient (RCR) | payer OTHER, MEDICARE, BC, SELFPAY ==
[2022-03-21 00:23] VITALS: BP 131/88; PULSE 86; RESP 17; TEMP 36.3
[2022-04-08 10:30] VITALS: BP 144/90; PULSE 95; RESP 17; TEMP 36.6; O2SAT 97
[2022-04-08] MEDS: IMMUNE GLOBULIN 5 GM/50 ML BTL IVPB (10:30)
[2022-04-08] MEDS: Normal Saline Flush 10 ML SYR IVP (10:30)
[2022-04-08 10:45] VITALS: BP 139/84; PULSE 95; RESP 17; TEMP 36.3; O2SAT 95
[2022-04-08 11:00] VITALS: BP 142/92; PULSE 90; RESP 17; TEMP 36; O2SAT 97
[2022-04-08] MEDS: IMMUNE GLOBULIN 10 GM/100 ML BTL IVPB (11:06)
[2022-04-08 11:30] VITALS: BP 131/73; PULSE 90; RESP 17; TEMP 36.3; O2SAT 96
[2022-04-08] MEDS: IMMUNE GLOBULIN 40 GM/400 ML BTL IVPB (11:39)
[2022-04-08 12:00] VITALS: BP 150/90; PULSE 90; RESP 17; TEMP 36.5; O2SAT 97
[2022-04-08 12:30] VITALS: BP 146/83; PULSE 89; RESP 17; TEMP 36.4; O2SAT 97
[2022-04-09 09:10] VITALS: BP 142/86; PULSE 86; RESP 17; TEMP 36.3; O2SAT 97
[2022-04-09] MEDS: IMMUNE GLOBULIN 5 GM/50 ML BTL IVPB (09:12)
[2022-04-09] MEDS: Normal Saline Flush 10 ML SYR IVP (09:12)
[2022-04-09 09:30] VITALS: BP 137/88; PULSE 85; RESP 17; TEMP 36.5; O2SAT 97
[2022-04-09 09:45] VITALS: BP 146/85; PULSE 85; RESP 17; TEMP 36; O2SAT 97
[2022-04-09 09:47] LABS: Anion Gap 8.3 mmol/L (3-11); BUN 7 mg/dL (7-18); CO2 24.7 mmol/L (21.0-32.0); CREATININE 0.8 mg/dL (0.70-1.30); Calcium 8.3 mg/dL (8.5-10.1); Chloride 102 mmol/L (98-107); Estimated GFR 97.61 (mL/min/1.73m2); Glucose 119 mg/dL (74-106); Potassium 3.7 mmol/L (3.5-5.1); Sodium 135 mmol/L (136-145)
[2022-04-09] MEDS: IMMUNE GLOBULIN 10 GM/100 ML BTL 1.64 GM IVPB (09:48)
[2022-04-09 10:15] VITALS: BP 151/90; PULSE 91; RESP 17; TEMP 36.4; O2SAT 97
[2022-04-09] MEDS: IMMUNE GLOBULIN 40 GM/400 ML BTL IVPB (10:28)
[2022-04-09 10:45] VITALS: BP 154/95; PULSE 93; RESP 17; TEMP 36.4; O2SAT 97
[2022-04-09 11:15] VITALS: BP 144/87; PULSE 86; RESP 17; TEMP 36.5; O2SAT 98
[2022-04-10] MEDS: IMMUNE GLOBULIN 5 GM/50 ML BTL IVPB (09:16)
[2022-04-10] MEDS: Normal Saline Flush 10 ML SYR IVP (09:16)
[2022-04-10 09:20] VITALS: BP 150/88; PULSE 95; RESP 17; TEMP 36.2; O2SAT 97
[2022-04-10 09:35] VITALS: BP 120/83; PULSE 96; RESP 17; TEMP 36.5; O2SAT 98
[2022-04-10 09:50] VITALS: BP 149/84; PULSE 96; RESP 17; TEMP 36.4; O2SAT 97
[2022-04-10] MEDS: IMMUNE GLOBULIN 10 GM/100 ML BTL IVPB (09:52)
[2022-04-10 10:20] VITALS: BP 148/78; PULSE 99; RESP 17; TEMP 36.3; O2SAT 99
[2022-04-10] MEDS: IMMUNE GLOBULIN 40 GM/400 ML BTL IVPB (10:26)
[2022-04-10 10:50] VITALS: BP 157/92; PULSE 96; RESP 17; TEMP 36.5; O2SAT 96
[2022-04-10 11:20] VITALS: BP 147/94; PULSE 99; RESP 17; TEMP 36; O2SAT 97
== END 2022-04-20 23:59 | disposition home or self-care (01) ==
LOC: INF 01:16
PROVIDERS: PCP Nurse Practitioner Adult Health; Visit Provider Psychiatry & Neurology Neurology
DX: G61.0 Guillain-Barre syndrome (principal)
CPT/HCPCS: 36415; 80048; 96365; 96366; J1459

== ENCOUNTER 2022-05-29 01:10 | Outpatient (RCR) | payer OTHER, MEDICARE, SELFPAY ==
[2022-05-27] MEDS: IMMUNE GLOBULIN 5 GM/50 ML BTL IVPB (09:29)
[2022-05-27] MEDS: Normal Saline Flush 10 ML SYR IVP (09:29)
[2022-05-27 09:50] VITALS: BP 130/80; PULSE 83; RESP 18; TEMP 36.6; O2SAT 95
[2022-05-27 10:05] VITALS: BP 145/88; PULSE 84; RESP 18; TEMP 36.6; O2SAT 96
[2022-05-27] MEDS: IMMUNE GLOBULIN 10 GM/100 ML BTL IVPB (10:13)
[2022-05-27 10:21] LABS: ALT 27 U/L (16-63); AST 23 U/L (15-37); Albumin 3.7 g/dL (3.4-5.0); Alkaline Phosphatase 69 U/L (46-116); Anion Gap 10.4 mmol/L (3-11); BUN 8 mg/dL (7-18); CO2 25.6 mmol/L (21.0-32.0); CREATININE 0.7 mg/dL (0.70-1.30); Calcium 8.8 mg/dL (8.5-10.1); Chloride 101 mmol/L (98-107); Estimated GFR 100.99 (mL/min/1.73m2); Glucose 118 mg/dL (74-106); Potassium 3.9 mmol/L (3.5-5.1); Sodium 137 mmol/L (136-145); Total Protein 6.9 g/dL (6.4-8.2)
[2022-05-27 10:35] VITALS: BP 129/84; PULSE 83; RESP 18; TEMP 36.8; O2SAT 98
[2022-05-27] MEDS: IMMUNE GLOBULIN 40 GM/400 ML BTL IVPB (10:44)
[2022-05-27 11:05] VITALS: BP 128/86; PULSE 79; RESP 18; TEMP 36.4; O2SAT 98
[2022-05-27 11:16] LABS: Sodium 137 mmol/L (136-145)
[2022-05-27 11:19] LABS: Vitamin B12 > 2000 pg/mL (193-986)
[2022-05-27 11:35] VITALS: BP 128/72; PULSE 62; RESP 18; TEMP 36.5; O2SAT 97
[2022-05-28] VITALS (7 sets, daily range): BP systolic 127–153; BP diastolic 76–99; PULSE 68–82; RESP 17–18; TEMP 36.1–36.9; O2SAT 96–99
[2022-05-28] MEDS: IMMUNE GLOBULIN 5 GM/50 ML BTL IVPB (09:14)
[2022-05-28] MEDS: Normal Saline Flush 10 ML SYR IVP (09:25)
[2022-05-28] MEDS: IMMUNE GLOBULIN 10 GM/100 ML BTL IVPB (09:53)
[2022-05-28] MEDS: IMMUNE GLOBULIN 40 GM/400 ML BTL IVPB (10:28)
[2022-05-29] VITALS (7 sets, daily range): BP systolic 136–143; BP diastolic 85–91; PULSE 77–83; RESP 17–18; TEMP 36.3–36.5; O2SAT 97–100
[2022-05-29] MEDS: IMMUNE GLOBULIN 5 GM/50 ML BTL IVPB (09:20)
[2022-05-29] MEDS: Normal Saline Flush 10 ML SYR IVP (09:21)
[2022-05-29] MEDS: IMMUNE GLOBULIN 10 GM/100 ML BTL IVPB (09:59)
[2022-05-29] MEDS: IMMUNE GLOBULIN 40 GM/400 ML BTL IVPB (10:36)
[2022-05-30 16:14] LABS: Thiamine (Vitamin B1), WB 260 nmol/L (70-180)
== END 2022-06-20 23:59 | disposition home or self-care (01) ==
LOC: INF 01:10
PROVIDERS: PCP Nurse Practitioner Adult Health; Visit Provider Psychiatry & Neurology Neurology
DX: G61.0 Guillain-Barre syndrome (principal)
CPT/HCPCS: 80053; 96365; 96366; 82607; 84295; 84425; J1459

== ENCOUNTER 2022-10-06 13:06 | Outpatient (CLI) | payer MEDICARE, OTHER, BC, SELFPAY ==
[2022-10-06 12:39] LABS: ALT 60 U/L (16-63); AST 56 U/L (15-37); Albumin 3.6 g/dL (3.4-5.0); Alkaline Phosphatase 80 U/L (46-116); Anion Gap 5.2 mmol/L (3-11); BUN 4 mg/dL (7-18); Bilirubin, Total 0.8 mg/dL (0.2-1.0); CO2 30.8 mmol/L (21.0-32.0); CREATININE 0.8 mg/dL (0.70-1.30); Chloride 97 mmol/L (98-107); Glucose 102 mg/dL (74-106); Potassium 4.5 mmol/L (3.5-5.1); Sodium 133 mmol/L (136-145); Total Protein 8.1 g/dL (6.4-8.2)
== END 2022-10-06 13:07 | disposition home or self-care (01) ==
LOC: LBO 13:10
PROVIDERS: PCP Nurse Practitioner Adult Health; Visit Provider Nurse Practitioner Adult Health
DX: E53.8 Deficiency of other specified B group vitamins (principal); E87.1 Hypo-osmolality and hyponatremia; F10.10 Alcohol abuse, uncomplicated; R27.0 Ataxia, unspecified; R79.89 Other specified abnormal findings of blood chemistry
CPT/HCPCS: 36415; 80053; 99214

== ENCOUNTER → 2023-02-04 04:03 | Outpatient (CLI) | payer OTHER, MEDICARE, SELFPAY ==
--- NOTE | 2023-02-04 08:30 | DI.RAD_ITS ---
Exam(s) RF JOINT INJ. FLUORO GUID RAD EXAM: RF JOINT INJ. FLUORO GUID RAD CLINICAL HISTORY: L SHOULDER PAIN,arthritis, m19.012. TECHNIQUE: 2D and realtime digital imaging was performed. CONTRAST MATERIAL: Oral barium Oral water soluble contrast was administered. COMPARISON: Prior relevant imaging studies reviewed. FINDINGS: Patient was consented prior to this procedure Using sterile technique and adequate skin-subcutaneous anesthesia, fluoroscopic guidance was used to advance a 22 gauge spinal needle into the glenohumeral joint using an anterior approach. Intra-articular position was confirmed with contrast injection. There after a sterile solution of 80 milligrams Depo-Medrol and 3 cc 0.5 percent bupivacaine was inje cted into the intra-articular compartment. Patient tolerated this procedure well and there were no intraprocedural complications. IMPRESSION: Left shoulder glenohumeral joint therapeutic steroid injection using fluoroscopic guidance. RADIATION DOSE DELIVERED: Kar=2.81mGy
[2023-02-04] MEDS: methylPREDNISolone ACETATE 80 MG/ML VIAL IM (15:45)
[2023-02-04] MEDS: Omnipaque 300 MG/ML 10 ML BTL IJ (15:45)
[2023-02-04] MEDS: Bupivacaine 0.5% Pres-Free 10 ML VIAL 5 ML IJ (15:46)
== END ==
PROVIDERS: PCP Nurse Practitioner Adult Health; Visit Provider Student in an Organized Health Care Education/Training Program
DX: M19.012 Primary osteoarthritis, left shoulder (principal)
CPT/HCPCS: 20610; 77001; J1040

== ENCOUNTER 2023-02-04 19:56 | Outpatient (CLI) | payer OTHER, MEDICARE, SELFPAY ==
[2023-02-04 17:08] LABS: Anion Gap 7.8 mmol/L (3-11); BUN 4 mg/dL (7-18); CO2 28.2 mmol/L (21.0-32.0); CREATININE 0.8 mg/dL (0.70-1.30); Calcium 8.7 mg/dL (8.5-10.1); Chloride 98 mmol/L (98-107); Glucose 96 mg/dL (74-106); Potassium 4.2 mmol/L (3.5-5.1); Sodium 134 mmol/L (136-145)
[2023-02-04 17:09] LABS: Vitamin B12 > 2000 pg/mL (193-986)
[2023-02-05 19:10] LABS: PSA, Screening 0.4 ng/mL (<=4.5)
[2023-02-10 16:18] LABS: Thiamine (Vitamin B1), WB 243 nmol/L (70-180)
== END 2023-02-04 19:57 | disposition home or self-care (01) ==
LOC: LBO 19:57
PROVIDERS: PCP Nurse Practitioner Adult Health; Visit Provider Nurse Practitioner Adult Health
DX: E87.1 Hypo-osmolality and hyponatremia (principal); E53.8 Deficiency of other specified B group vitamins; G62.9 Polyneuropathy, unspecified; R06.02 Shortness of breath; Z12.5 Encounter for screening for malignant neoplasm of prostate
CPT/HCPCS: 36415; 80048; 84153; 82607; 84425

== ENCOUNTER → 2023-03-09 11:19 | Outpatient (BNVA) | payer MEDICARE, OTHER, SELFPAY | PROVIDERS: PCP Nurse Practitioner Adult Health; Referring Provider Nurse Practitioner Adult Health; Visit Provider Psychiatry & Neurology Neurology | DX: R20.2 Paresthesia of skin (principal); R27.0 Ataxia, unspecified | CPT/HCPCS: 99213 ==

== ENCOUNTER 2023-06-16 12:59 | Outpatient (REF) | payer MEDICARE, OTHER, SELFPAY ==
[2023-06-16 15:28] LABS: Anion Gap 10.2 mmol/L (3-11); BUN 4 mg/dL (7-18); CO2 23.8 mmol/L (21.0-32.0); CREATININE 0.7 mg/dL (0.70-1.30); Calcium 8.5 mg/dL (8.5-10.1); Chloride 96 mmol/L (98-107); Estimated GFR 100.37 (mL/min/1.73m2); Glucose 111 mg/dL (74-106); Potassium 4.1 mmol/L (3.5-5.1); Sodium 130 mmol/L (136-145)
== END 2023-06-16 13:00 | disposition home or self-care (01) ==
LOC: LBN 12:59
PROVIDERS: PCP Nurse Practitioner Adult Health; Visit Provider Nurse Practitioner Adult Health
DX: E87.1 Hypo-osmolality and hyponatremia (principal)
CPT/HCPCS: 80048

== ENCOUNTER → 2023-08-10 10:27 | Outpatient (BNVA) | payer MEDICARE, BC, SELFPAY | PROVIDERS: PCP Nurse Practitioner Adult Health; Visit Provider Psychiatry & Neurology Neurology | DX: G61.81 Chronic inflammatory demyelinating polyneuritis (principal); R20.2 Paresthesia of skin; E87.1 Hypo-osmolality and hyponatremia; R27.0 Ataxia, unspecified | CPT/HCPCS: 99214 ==

== ENCOUNTER 2023-09-02 02:59 | Outpatient (RCR) | payer MEDICARE, BC, SELFPAY ==
[2023-09-02] VITALS (7 sets, daily range): BP systolic 136–165; BP diastolic 89–97; PULSE 80–92; RESP 16–17; TEMP 36.7–37.2; O2SAT 97–99
[2023-09-02] MEDS: IMMUNE GLOBULIN 5 GM/50 ML BTL IVPB (10:00)
[2023-09-02] MEDS: Normal Saline Flush 10 ML SYR IVP (10:03)
[2023-09-02] MEDS: IMMUNE GLOBULIN 40 GM/400 ML BTL IVPB ×2 (10:30→12:02)
[2023-09-02 10:48] LABS: CREATININE 0.7 mg/dL (0.70-1.30); Estimated GFR 100.37 (mL/min/1.73m2)
== END 2023-09-19 23:59 | disposition home or self-care (01) ==
LOC: INF 02:59
PROVIDERS: PCP Nurse Practitioner Adult Health; Visit Provider Psychiatry & Neurology Neurology
DX: G61.81 Chronic inflammatory demyelinating polyneuritis (principal)
CPT/HCPCS: 36415; 96365; 96366; 82565; J1459

== ENCOUNTER 2023-10-15 00:48 | Outpatient (RCR) | payer MEDICARE, BC, SELFPAY ==
[2023-09-20 00:13] VITALS: BP 165/92; PULSE 88; RESP 16; TEMP 37.1
[2023-10-15] VITALS (7 sets, daily range): BP systolic 133–151; BP diastolic 77–90; PULSE 89–98; RESP 16–18; TEMP 36.4–37.1; O2SAT 94–97
[2023-10-15] MEDS: IMMUNE GLOBULIN 5 GM/50 ML BTL IVPB (10:11)
[2023-10-15] MEDS: Normal Saline Flush 10 ML SYR IVP (10:12)
[2023-10-15 10:19] LABS: CREATININE 0.7 mg/dL (0.70-1.30); Estimated GFR 100.37 (mL/min/1.73m2)
[2023-10-15] MEDS: IMMUNE GLOBULIN 40 GM/400 ML BTL IVPB ×2 (10:41→12:11)
== END 2023-10-19 23:59 | disposition home or self-care (01) ==
LOC: INF 00:48
PROVIDERS: PCP Nurse Practitioner Adult Health; Visit Provider Psychiatry & Neurology Neurology
DX: G61.81 Chronic inflammatory demyelinating polyneuritis (principal)
CPT/HCPCS: 36415; 96365; 96366; 82565; J1459

== ENCOUNTER 2023-11-26 04:47 | Outpatient (RCR) | payer MEDICARE, SELFPAY ==
[2023-10-20 00:22] VITALS: BP 165/92; PULSE 88; RESP 16; TEMP 37.1
[2023-11-26] VITALS (8 sets, daily range): BP systolic 119–143; BP diastolic 76–88; PULSE 77–95; TEMP 36.2–36.5; O2SAT 97–98
[2023-11-26] MEDS: IMMUNE GLOBULIN 5 GM/50 ML BTL IVPB (10:12)
[2023-11-26] MEDS: Normal Saline Flush 10 ML SYR IVP (10:12)
[2023-11-26] MEDS: IMMUNE GLOBULIN 40 GM/400 ML BTL IVPB ×2 (10:44→12:27)
[2023-11-26 11:14] LABS: CREATININE 0.8 mg/dL (0.70-1.30)
== END 2023-12-19 23:59 | disposition home or self-care (01) ==
LOC: INF 04:47
PROVIDERS: PCP Nurse Practitioner Adult Health; Visit Provider Psychiatry & Neurology Neurology
DX: G61.81 Chronic inflammatory demyelinating polyneuritis (principal)
CPT/HCPCS: 36415; 96365; 96366; 82565; J1459

== ENCOUNTER 2023-12-29 12:44 | Outpatient (CLI) | payer MEDICARE, SELFPAY ==
--- NOTE | 2023-12-29 12:30 | RT.EKG_ITS ---
APPROVED REPORT Exam: Resting ECG Reason for Exam: assess rhythm Patient Location: O HR:87 bpm ECG Measurements Heart Rate 87 AXIS TX 153 P 10 QRSd 92 QRS 43 QT 377 T 66 QTc 454 Conclusion Sinus rhythm...normal P axis, V-rate 50- 99 Borderline low voltage, extremity leads...all extremity leads <0.6mV Otherwise normal ECG
== END 2023-12-29 12:45 | disposition home or self-care (01) ==
LOC: DI.KIM 12:45
PROVIDERS: PCP Nurse Practitioner Adult Health; Visit Provider Nurse Practitioner Adult Health
DX: R53.1 Weakness (principal)
CPT/HCPCS: 93010

== ENCOUNTER 2023-12-29 14:09 | Outpatient (CLI) | payer MEDICARE, SELFPAY ==
[2023-12-29 13:47] LABS: ESR 1 mm/hr (0-20)
[2023-12-29 13:50] LABS: Abs Immature Grans 0.08 10^3/uL (0.0-0.06); Absolute Basophil Count 0.04 10^3/uL (0.0-0.2); Absolute Eosinophil Count 0.02 10^3/uL (0.0-0.7); Absolute Monocyte Count 0.48 10^3/uL (0.1-0.8); Absolute Neutrophil Count 4.36 10^3/uL (1.2-6.7); Basophils % 0.7 %; Eosinophils % 0.3 %; HCT 38.6 % (40.0-50.0); HGB 13.9 g/dL (13.5-17.5); Immature Grans % 1.4 %; Lymphocytes % 13.8 %; MCH 36.9 pg (27.0-33.0); MCV 102 fL (80-95); MPV 8.7 fL (8.0-11.0); Monocytes % 8.3 %; Neutrophils % 75.5 %; Platelet Count 376 10^3/uL (130-400); RBC 3.77 10^6/uL (4.36-5.78); RDW 14.6 % (11.8-14.1); RDW-SD 54.7 fL; WBC 5.78 10^3/uL (4.4-10.8)
[2023-12-29 14:34] LABS: Creatine Kinase 52 U/L (39-308)
[2023-12-29 14:40] LABS: ALT 54 U/L (16-63); AST 93 U/L (15-37); Albumin 3.5 g/dL (3.4-5.0); Alkaline Phosphatase 143 U/L (46-116); Anion Gap 7.9 mmol/L (3-11); BUN 6 mg/dL (7-18); Bilirubin, Total 0.99 mg/dL (0.2-1.0); C-Reactive Protein < 0.50 mg/dL (<or=0.5); CO2 29.1 mmol/L (21.0-32.0); CREATININE 0.8 mg/dL (0.70-1.30); Calcium 8.9 mg/dL (8.5-10.1); Chloride 96 mmol/L (98-107); Glucose 119 mg/dL (74-106); Potassium 4.1 mmol/L (3.5-5.1); Sodium 133 mmol/L (136-145); TSH (W/Ref FT4) 1.76 uIU/mL (0.36-3.74); Total Protein 7.3 g/dL (6.4-8.2)
[2023-12-30 09:28] LABS: Prealbumin 19 mg/dL (20-40)
[2023-12-30 10:02] LABS: Lyme Ab w Rflx to Lyme Confirm Negative (Negative)
[2024-01-01] LABS: Anaplasma phagocytophilum Negative (Negative); B. miyamotoi PCR Negative (Negative); Babesia divergens/MO-1 Negative (Negative); Babesia duncani Negative (Negative); Babesia microti Negative (Negative); Ehrlichia chaffeensis Negative (Negative); Ehrlichia ewingii/canis Negative (Negative); Ehrlichia muris eauclairensis Negative (Negative)
== END 2023-12-29 14:10 | disposition home or self-care (01) ==
LOC: LBO 14:09
PROVIDERS: PCP Nurse Practitioner Adult Health; Visit Provider Nurse Practitioner Adult Health
DX: R53.1 Weakness (principal); R63.4 Abnormal weight loss; R06.02 Shortness of breath; Z91.81 History of falling
CPT/HCPCS: 36415; 80053; 82550; 85652; 87798; 84134; 84443; 85025; 86140; 86618

== ENCOUNTER → 2024-01-03 09:20 | Outpatient (BNVA) | payer MEDICARE, SELFPAY | PROVIDERS: PCP Nurse Practitioner Adult Health; Referring Provider Nurse Practitioner Adult Health; Visit Provider Psychiatry & Neurology Neurology | DX: G61.81 Chronic inflammatory demyelinating polyneuritis (principal); R20.2 Paresthesia of skin; R27.0 Ataxia, unspecified; E87.1 Hypo-osmolality and hyponatremia; I95.1 Orthostatic hypotension | CPT/HCPCS: 99215 ==

== ENCOUNTER 2024-01-19 01:37 | Outpatient (RCR) | payer MEDICARE, SELFPAY ==
[2023-12-20 00:14] VITALS: BP 165/92; PULSE 88; RESP 16; TEMP 37.1
[2024-01-07 10:35] VITALS: BP 101/71; PULSE 94; RESP 18; TEMP 37; O2SAT 98
[2024-01-07] MEDS: IMMUNE GLOBULIN 5 GM/50 ML BTL IVPB (10:41)
[2024-01-07] MEDS: Normal Saline Flush 10 ML SYR IVP (10:44)
[2024-01-07 10:55] VITALS: BP 125/81; PULSE 92; RESP 17; TEMP 37; O2SAT 99
[2024-01-07 11:09] LABS: CREATININE 0.7 mg/dL (0.70-1.30); Estimated GFR 100.37 (mL/min/1.73m2)
[2024-01-07 11:10] VITALS: BP 107/71; PULSE 97; RESP 17; TEMP 36.6; O2SAT 99
[2024-01-07] MEDS: IMMUNE GLOBULIN 40 GM/400 ML BTL IVPB ×2 (11:10→12:53)
[2024-01-07 11:40] VITALS: BP 137/83; PULSE 100; RESP 18; TEMP 36.5; O2SAT 99
[2024-01-07 12:10] VITALS: BP 129/83; PULSE 96; RESP 18; TEMP 36.3; O2SAT 100
[2024-01-07 13:55] VITALS: BP 131/80; PULSE 86; RESP 18; TEMP 36.3; O2SAT 100
[2024-01-11 15:03] LABS: Vascular Endothelial Growth Fa 18.4 pg/mL (<=96.2)
[2024-01-17] MEDS: Normal Saline Flush 10 ML SYR IVP (14:14)
[2024-01-18] MEDS: Normal Saline Flush 10 ML SYR IVP (13:10)
[2024-01-19] MEDS: Normal Saline Flush 10 ML SYR IVP (14:03)
== END 2024-01-19 23:59 | disposition home or self-care (01) ==
LOC: INF 01:37
PROVIDERS: PCP Nurse Practitioner Adult Health; Visit Provider Psychiatry & Neurology Neurology
DX: G61.81 Chronic inflammatory demyelinating polyneuritis (principal)
CPT/HCPCS: 36415; 83520; 96365; 96366; 82565; 84165; J1459; J2919

== ENCOUNTER 2024-02-03 12:16 | Outpatient (CLI) | payer MEDICARE, SELFPAY ==
[2024-02-03 13:28] LABS: Abs Immature Grans 0.06 10^3/uL (0.0-0.06); Absolute Eosinophil Count 0.04 10^3/uL (0.0-0.7); Absolute Lymphocyte Count 1.07 10^3/uL (1.2-3.4); Absolute Monocyte Count 0.86 10^3/uL (0.1-0.8); Absolute Neutrophil Count 7.62 10^3/uL (1.2-6.7); Eosinophils % 0.4 %; HCT 30.5 % (40.0-50.0); HGB 10.6 g/dL (13.5-17.5); Immature Grans % 0.6 %; Lymphocytes % 11.1 %; MCH 36.4 pg (27.0-33.0); MCHC 34.8 % (32.0-36.0); MCV 105 fL (80-95); MPV 8.8 fL (8.0-11.0); Monocytes % 8.9 %; Platelet Count 293 10^3/uL (130-400); RBC 2.91 10^6/uL (4.36-5.78); RDW 14.7 % (11.8-14.1); RDW-SD 56.9 fL; WBC 9.65 10^3/uL (4.4-10.8)
[2024-02-03 16:15] LABS: ALT 35 U/L (16-63); AST 28 U/L (15-37); Albumin 2.9 g/dL (3.4-5.0); Alkaline Phosphatase 110 U/L (46-116); Anion Gap 9.4 mmol/L (3-11); BUN 11 mg/dL (7-18); CO2 28.6 mmol/L (21.0-32.0); CREATININE 0.7 mg/dL (0.70-1.30); Calcium 8.8 mg/dL (8.5-10.1); Chloride 96 mmol/L (98-107); Estimated GFR 100.37 (mL/min/1.73m2); Glucose 92 mg/dL (74-106); Potassium 4.9 mmol/L (3.5-5.1); Sodium 134 mmol/L (136-145); Total Protein 5.9 g/dL (6.4-8.2)
[2024-02-04 08:28] LABS: IgA 136 mg/dL (85-499); IgG 1063 mg/dL (610-1616); IgM 29 mg/dL (35-242)
[2024-02-04 09:01] LABS: HIV-1/2 Ag & Ab Screen Negative (Negative)
[2024-02-04 11:09] LABS: Varicella IgG Antibody Positive (See Note)
[2024-02-04 12:02] LABS: HBs Antibody, Qual Positive (See Note); HBs Antibody, Quant 287.9 mIU/mL (See Note); Hepatitis B Core Antibody Positive (Negative); Hepatitis B surface Ag Negative (Negative); Hepatitis C Ab w Rflx HCV PCR Negative (Negative)
[2024-02-04 15:18] LABS: CD19 8 % (6-24); CD20 8 % (6-24)
[2024-02-04 16:01] LABS: Albumin 58.1 % (55.8-66.1); Albumin g/dL 3.3 g/dL (3.6-5.2); Total Protein 5.6 g/dL (6.3-8.2)
[2024-02-07 14:30] LABS: TB Interpretation Negative (Negative); TB1 Ag minus Nil 0.01 IU/ml; TB2 Ag minus Nil 0.01 IU/mL
== END 2024-02-03 12:17 | disposition home or self-care (01) ==
LOC: LBO 12:16
PROVIDERS: PCP Nurse Practitioner Adult Health; Visit Provider Psychiatry & Neurology Neurology
DX: G61.81 Chronic inflammatory demyelinating polyneuritis (principal); G62.9 Polyneuropathy, unspecified; R20.2 Paresthesia of skin; G35 Multiple sclerosis
CPT/HCPCS: 36415; 80053; 82784; 86704; 86706; 86787; 86803; 87340; 87389; 88184; 88185; 84165; 85025; 86480

== ENCOUNTER 2024-02-11 00:43 | Outpatient (CLI) | payer MEDICARE, SELFPAY ==
[2024-02-11 13:40] LABS: Abs Immature Grans 0.11 10^3/uL (0.0-0.06); Absolute Basophil Count 0.01 10^3/uL (0.0-0.2); Absolute Monocyte Count 0.33 10^3/uL (0.1-0.8); Basophils % 0.1 %; HCT 30.5 % (40.0-50.0); HGB 10.4 g/dL (13.5-17.5); Immature Grans % 0.9 %; Lymphocytes % 3.9 %; MCH 36.5 pg (27.0-33.0); MCHC 34.1 % (32.0-36.0); MCV 107 fL (80-95); MPV 8.2 fL (8.0-11.0); Monocytes % 2.6 %; Neutrophils % 92.5 %; Nucleated RBC 0.2 % (0.0-0.3); Platelet Count 368 10^3/uL (130-400); RBC 2.85 10^6/uL (4.36-5.78); RDW 14.8 % (11.8-14.1); RDW-SD 58.6 fL; WBC 12.72 10^3/uL (4.4-10.8)
[2024-02-11 13:42] LABS: Absolute Neutrophil Count 11.77 10^3/uL (1.2-6.7)
[2024-02-11 13:56] LABS: Diff Comment RBC Morph Reviewed; Macrocytosis 2+; Polychromasia Present
== END 2024-02-11 00:44 | disposition home or self-care (01) ==
LOC: LBO 00:44
PROVIDERS: PCP Nurse Practitioner Adult Health; Referring Provider Nurse Practitioner Adult Health; Visit Provider Nurse Practitioner Adult Health
DX: D64.9 Anemia, unspecified (principal)
CPT/HCPCS: 36415; 85025

== ENCOUNTER 2024-03-15 02:10 | Outpatient (RCR) | payer MEDICARE, BC, SELFPAY | END 2024-03-20 23:59 | disposition home or self-care (01) | LOC: INF 02:10 | PROVIDERS: PCP Nurse Practitioner Adult Health; Visit Provider Psychiatry & Neurology Neurology | DX: G61.81 Chronic inflammatory demyelinating polyneuritis (principal) | CPT/HCPCS: 00123; 36415; 80053; 82550; 84145; 85652; 87040; 93005; 96365; 96366; 96367; 96372; 99285; 73610; 73630; 73700; 83605; 83735; 84100; 85025; 86140; J2543; J3370; J3372; J9334 ==

== ENCOUNTER 2024-03-15 14:06 | Emergency (ER) | payer MEDICARE, BC, SELFPAY ==
[2024-03-15] VITALS (19 sets, daily range): BP systolic 137–155; BP diastolic 67–87; PULSE 73–89; RESP 14–16; TEMP 36.3–36.4; O2SAT 91–99
--- NOTE | 2024-03-15 14:15 | RT.EKG_ITS ---
APPROVED REPORT Exam: Resting ECG Reason for Exam: weakness Patient Location: E HR:83 bpm ECG Measurements Heart Rate 83 AXIS NM 145 P 53 QRSd 88 QRS 35 QT 387 T 59 QTc 456 Conclusion Sinus rhythm 83 normal axis no stemi
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
[2024-03-15 15:15] LABS: Absolute Basophil Count 0.03 10^3/uL (0.0-0.2); Absolute Eosinophil Count 0.04 10^3/uL (0.0-0.7); Absolute Lymphocyte Count 0.87 10^3/uL (1.2-3.4); Absolute Monocyte Count 0.96 10^3/uL (0.1-0.8); Absolute Neutrophil Count 6.76 10^3/uL (1.2-6.7); Basophils % 0.3 %; Eosinophils % 0.5 %; HCT 35.2 % (40.0-50.0); HGB 11.6 g/dL (13.5-17.5); Immature Grans % 1.1 %; Lymphocytes % 9.9 %; MCV 103 fL (80-95); MPV 8.5 fL (8.0-11.0); Neutrophils % 77.2 %; Platelet Count 328 10^3/uL (130-400); RBC 3.41 10^6/uL (4.36-5.78); RDW 13.8 % (11.8-14.1); RDW-SD 53.1 fL; WBC 8.76 10^3/uL (4.4-10.8)
[2024-03-15 15:31] LABS: ALT 62 U/L (16-63); AST 68 U/L (15-37); Albumin 2.4 g/dL (3.4-5.0); Alkaline Phosphatase 397 U/L (46-116); Anion Gap 6.4 mmol/L (3-11); BUN 9 mg/dL (7-18); Bilirubin, Total 0.41 mg/dL (0.2-1.0); CO2 27.6 mmol/L (21.0-32.0); CREATININE 0.6 mg/dL (0.70-1.30); Calcium 8.2 mg/dL (8.5-10.1); Chloride 97 mmol/L (98-107); Creatine Kinase 20 U/L (39-308); Estimated GFR 105.15 (mL/min/1.73m2); Glucose 114 mg/dL (74-106); Magnesium 1.8 mg/dL (1.8-2.4); PHOSPHORUS 3.3 mg/dL (2.6-4.7); Potassium 3.5 mmol/L (3.5-5.1); Sodium 131 mmol/L (136-145); Total Protein 5.3 g/dL (6.4-8.2)
[2024-03-15 17:26] LABS: ESR 5 mm/hr (0-20)
[2024-03-15 17:35] LABS: C-Reactive Protein 4.32 mg/dL (<or=0.5)
[2024-03-15 18:06] LABS: Procalcitonin 0.1 ng/mL
[2024-03-15 18:10] LABS: Lactate 0.8 mmol/L (0.6-1.4)
[2024-03-15] MEDS: PIPERACILLIN/TAZO 3.375 GM in Normal Saline 50 ML IVPB (18:19)
--- NOTE | 2024-03-15 18:45 | DI.CT_ITS ---
Exam(s) CT LOWER EXTREMITY LT WO EXAM: CT LOWER EXTREMITY LT WO CLINICAL HISTORY: laceration and cellulitis. TECHNIQUE: Imaging Protocol: Axial computed tomography images with coronal and sagittal reformatted images were created and reviewed. COMPARISON: CR XR ANKLE LT COMPLETE from 03/15/2024 CR XR FOOT LT COMPLETE from 03/15/2024 FINDINGS: There is patient motion artifact. Bones: The osseous structures and articular surfaces are intact. Bony alignment is satisfactory. N o cellulitic or osteomyelitic changes are identified. Mild degenerative changes are seen in the left knee. There are hammertoe deformities of the 2nd through 5th toes. There is mild arthrosis of the foot and ankle. There is a nonspecific mottled appearance of the bone marrow. Soft Tissues: Subcutaneous edema is seen in the left lower extremity beginning at the level of the kn ee. Edema extends into the foot. No definite focal fluid collection is seen to suggest an abscess. There is no knee joint effusion. IMPRESSION: 1. Edema seen in the lower extremity extending into the foot which may represent a cellulitis. No so ft tissue gas. No focal fluid collection is seen to suggest an abscess. 2. No evidence of osteomyelitis. 3. Degenerative changes seen in the lower extremity. RADIATION DOSE DELIVERED: 478.68mGy.cm Total DLP 478.68mGy.cm Total DLP DATA REPOSITORY: All CT scans at this facility are submitted to the National Radiology Data Registry (NRDR) Dose Index Registry (DIR) with the [employer] (ACR). RADIATION OPTIMIZATION: All CT scans at this facility use at least one of these dose optimization te chniques: automated exposure control; mA and/or kV adjustment per patient size (includes targeted exa ms where dose is matched to clinical indication); or iterative reconstruction.
[2024-03-15] MEDS: VANCOMYCIN/WATER (PEG) 2 GM/400 ML BAG IVPB (19:02)
--- NOTE | 2024-03-15 21:52 | DI.VRAD_ITS ---
PROCEDURE INFORMATION: Exam: CT Left Lower Extremity, Leg Exam date and time: 03/15/2024 7:48 PM Age: 68 years old Clinical indication: Other: Laceration and cellulitis TECHNIQUE: Imaging protocol: CT of the left lower extremity without contrast was performed. Exam focused on the lower leg. COMPARISON: CR XR FOOT LT COMPLETE 03/15/2024 2:01 PM FINDINGS: Bones/joints: Mild lateral patellar subluxation. Osseous alignment is otherwise normal. No acute fracture. Soft tissues: Significant diffuse subcutaneous soft tissue edema of the left lower leg. No loculated soft tissue fluid collections. Mild intramuscular fascial edema in the lower calf. No soft tissue gas IMPRESSION: Diffuse soft tissue swelling of the left lower lobe which may represent bland edema or cellulitis and possible mild fasciitis in the lower calf. No soft tissue gas or abscess. No evidence of osteomyelitis. Dictated and Authenticated by: Elan Izquierdo MD. Ordering:MARA Rios MD
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
[2024-03-16] VITALS (14 sets, daily range): BP systolic 132–152; BP diastolic 86–87; PULSE 62–86; RESP 16; TEMP 36.6; O2SAT 92–100
[2024-03-16] MEDS: Normal Saline 1,000 ML 80 ML IV (00:02)
[2024-03-16] MEDS: PIPERACILLIN/TAZO 3.375 GM in Normal Saline 50 ML IVPB ×2 (00:02→06:18)
[2024-03-16] MEDS: VANCOMYCIN 1,500 MG in Normal Saline 250 ML 166.6666 MG IVPB (04:44)
== END 2024-03-16 07:41 | disposition short-term general hospital (02) ==
PROVIDERS: Nurse Practitioner Family; Emergency Provider Physician Assistant; PCP Nurse Practitioner Adult Health
DX: T23.242A Burn of second degree of multiple left fingers (nail), including thumb, initial encounter (principal); T23.241A Burn of second degree of multiple right fingers (nail), including thumb, initial encounter; T31.0 Burns involving less than 10% of body surface; L03.116 Cellulitis of left lower limb; R53.1 Weakness; R20.2 Paresthesia of skin; F10.90 Alcohol use, unspecified, uncomplicated
CPT/HCPCS: 00123; 36415; 80053; 82550; 84145; 85652; 87040; 93005; 96365; 96366; 96367; 99285; 73610; 73630; 73700; 83605; 83735; 84100; 85025; 86140; 93010; J2543; J3370; J3372

== ENCOUNTER 2024-03-15 15:19 | Outpatient (CLI) | payer MEDICARE, BC, SELFPAY ==
--- NOTE | 2024-03-15 12:15 | DI.RAD_ITS ---
Exam(s) XR FOOT LT COMPLETE EXAM: XR FOOT LT COMPLETE CLINICAL HISTORY: r/o fx or other acute issue, R29.6 REPEAT FALLS. M25.472 EFFUSION L ANKLE. TECHNIQUE: 2D digital imaging was performed. COMPARISON: CR XR TOE LT THIRD from 01/16/2021 FINDINGS: 3 views There is prominent soft tissue swelling over the dorsal aspect of the entire foot. There is no evidence of acute fracture or diastasis of the Hui stephania joint. There is some degenerati ve narrowing of the lateral aspect of the great toe metatarsophalangeal joint. Other MTP joints appe ar unremarkable. Calcific density is noted just proximal to the base of the 5th metatarsal. May be related to prior avulsion injury at this level. There is a focus of soft tissue gas on the lateral aspect of the foot adjacent to the base of the 5th metatarsal. There is no radiopaque foreign body at this level. There is no radiographic evidence o f osteomyelitis in the adjacent proximal aspect of the 5th metatarsal. There is some degenerative ch anges in the tarsometatarsal joints but no fractures at these levels. IMPRESSION: Prominent dorsal soft tissue swelling. There is also an air-gas bubble in the subcutaneous tissues o lefty the lateral aspect of the foot without evidence of osteomyelitis of the adjacent base of the 5th metatarsal. There is no radiopaque foreign body There is a 7 x 5 mm calcific density adjacent to the base of the 5th metatarsal at the Peroni is brev is tendon insertion site. DATA REPOSITORY: RADIATION DOSE DELIVERED:
--- NOTE | 2024-03-15 12:15 | DI.RAD_ITS ---
Exam(s) XR ANKLE LT COMPLETE EXAM: XR ANKLE LT COMPLETE CLINICAL HISTORY: r/o fx or other acute issue, R29.6 REPEAT FALLS. M25.472 EFFUSION L ANKLE. TECHNIQUE: 2D digital imaging was performed. COMPARISON: No exams were available for comparison FINDINGS: 3 views There is soft tissue swelling both sides the ankle. No evidence of acute fracture or widening the an kle mortise. Talar dome unremarkable. There are some degenerative changes in the anterior aspect of the tibiotalar joint. Subtalar joint a ppears unremarkable. Moderate size inferior calcaneal spur is noted. No osseous tarsal coalition. IMPRESSION: Soft tissue swelling. No acute fractures evident. Some degenerative change noted in the ankle tibio talar joint. No large joint effusion evident. DATA REPOSITORY: RADIATION DOSE DELIVERED:
== END 2024-03-15 15:39 ==
LOC: DI 15:22
PROVIDERS: PCP Nurse Practitioner Adult Health; Visit Provider Nurse Practitioner Adult Health
DX: R29.6 Repeated falls (principal); M25.472 Effusion, left ankle; M79.89 Other specified soft tissue disorders
CPT/HCPCS: 73610; 73630

== ENCOUNTER 2024-04-12 03:08 | Outpatient (RCR) | payer MEDICARE, BC, SELFPAY | END 2024-04-20 23:59 | disposition home or self-care (01) | LOC: INF 03:08 | PROVIDERS: PCP Nurse Practitioner Adult Health; Visit Provider Psychiatry & Neurology Neurology | DX: G61.81 Chronic inflammatory demyelinating polyneuritis (principal) | CPT/HCPCS: 96372; J9334 ==

== ENCOUNTER → 2024-04-13 10:07 | Outpatient (BNVA) | payer MEDICARE, BC, SELFPAY | PROVIDERS: PCP Nurse Practitioner Adult Health; Referring Provider Nurse Practitioner Adult Health; Visit Provider Psychiatry & Neurology Neurology | DX: R27.0 Ataxia, unspecified (principal); G61.81 Chronic inflammatory demyelinating polyneuritis; R20.2 Paresthesia of skin | CPT/HCPCS: 99215 ==

== ENCOUNTER 2024-05-08 01:44 | Outpatient (RCR) | payer MEDICARE, BC, SELFPAY ==
[2024-04-24] VITALS (7 sets, daily range): BP systolic 137–159; BP diastolic 78–97; PULSE 86–93; RESP 17–18; TEMP 36.3–37.5; O2SAT 96–99
[2024-04-24] MEDS: Acetaminophen 325 MG TAB 650 MG PO (10:15)
[2024-04-24] MEDS: methylPREDNISolone SUCC 125 MG VIAL IVP (10:15)
[2024-04-24] MEDS: Normal Saline Flush 10 ML SYR IVP (11:39)
[2024-05-08] VITALS (8 sets, daily range): BP systolic 138–168; BP diastolic 79–94; PULSE 92–103; RESP 18; TEMP 37–37.2; O2SAT 96–99
[2024-05-08] MEDS: Acetaminophen 325 MG TAB 650 MG PO (09:52)
[2024-05-08] MEDS: methylPREDNISolone SUCC 125 MG VIAL IVP (09:52)
[2024-05-08] MEDS: Normal Saline Flush 10 ML SYR IVP (14:59)
== END 2024-05-20 23:59 | disposition home or self-care (01) ==
LOC: INF 01:44
PROVIDERS: PCP Nurse Practitioner Adult Health; Visit Provider Psychiatry & Neurology Neurology
DX: G61.81 Chronic inflammatory demyelinating polyneuritis (principal)
CPT/HCPCS: 96365; 96366; 96374; 96375; J2919; J9312

== ENCOUNTER → 2024-06-06 12:49 | Outpatient (BNVA) | payer MEDICARE, BC, SELFPAY | PROVIDERS: PCP Nurse Practitioner Adult Health; Referring Provider Nurse Practitioner Adult Health; Visit Provider Student in an Organized Health Care Education/Training Program | DX: M19.012 Primary osteoarthritis, left shoulder (principal) | CPT/HCPCS: 99213 ==

== ENCOUNTER 2024-06-19 02:01 | Outpatient (CLI) | payer MEDICARE, BC, SELFPAY ==
--- NOTE | 2024-06-19 06:45 | DI.RAD_ITS ---
Exam(s) RF JOINT INJ. FLUORO GUID RAD EXAM: RF JOINT INJ. FLUORO GUID RAD CLINICAL HISTORY: L SHOULDER PAIN,fluoro guided injection,arthritis lt glenohumeral joint,. TECHNIQUE: 2D and realtime digital imaging was performed. CONTRAST MATERIAL: Oral barium Oral water soluble contrast was administered. COMPARISON: RF RF JOINT INJ. FLUORO GUID RAD from 02/04/2023 FINDINGS: This left shoulder therapeutic steroid injection was performed at the request of the referring orthop edic surgeon. Patient was consented prior to this procedure. Patient was placed in the supine position on the fluoroscopy table. Using sterile technique and adequate skin-subcutaneous anesthesia, fluoroscopic guidance was used to advance a 22 gauge spinal needle into the glenohumeral joint via an anterior approach. Intra-articular position was confirmed with contrast injection Thereafter a sterile solution of 40 milligram Depo-Medrol and 4 cc of 0.5 percent bupivacaine was inj ected into the intra-articular compartment. Patient tolerated this procedure well and there were no intraprocedural complications. IMPRESSION: Successful left shoulder glenohumeral joint therapeutic steroid injection using fluoroscopic guidance . RADIATION DOSE DELIVERED: Ka,r=1.34mGy
[2024-06-19] MEDS: Omnipaque 300 MG/ML 10 ML BTL 5 ML IJ (11:26)
[2024-06-19] MEDS: Lidocaine 1% Pres-Free 30 ML VIAL 10 ML IJ (11:26)
[2024-06-19] MEDS: Bupivacaine 0.5% Pres-Free 10 ML VIAL 5 ML IJ (11:27)
[2024-06-19] MEDS: methylPREDNISolone ACETATE 40 MG/ML VIAL IM (11:28)
== END 2024-06-19 02:21 ==
LOC: DI 02:01
PROVIDERS: PCP Nurse Practitioner Adult Health; Visit Provider Student in an Organized Health Care Education/Training Program
DX: M19.012 Primary osteoarthritis, left shoulder (principal)
CPT/HCPCS: 20610; 77002; J0665; J1010

== ENCOUNTER → 2024-06-27 09:51 | Outpatient (BNVA) | payer MEDICARE, BC, SELFPAY | PROVIDERS: PCP Nurse Practitioner Adult Health; Visit Provider Psychiatry & Neurology Neurology | DX: R27.0 Ataxia, unspecified (principal); G61.81 Chronic inflammatory demyelinating polyneuritis; R20.2 Paresthesia of skin | CPT/HCPCS: 99214 ==

== ENCOUNTER 2024-07-13 02:54 | Outpatient (CLI) | payer MEDICARE, BC, SELFPAY ==
--- NOTE | 2024-07-13 06:45 | DI.RAD_ITS ---
Exam(s) XR ANKLE LT COMPLETE EXAM: XR ANKLE LT COMPLETE CLINICAL HISTORY: Left foot/ankle pain,m79.672,m25.572. TECHNIQUE: 2D digital imaging was performed. COMPARISON: CR XR ANKLE LT COMPLETE from 03/15/2024 FINDINGS: 3 views No evidence of acute fracture or widening of the ankle mortise. Talar dome appears unremarkable. Mi ld degenerative changes in the tibiotalar joint again noted. Subtalar joint appears unremarkable. M oderate size inferior calcaneal spur is again noted. No osseous lesions. IMPRESSION: As above, without significant radiographic change compared to 2023 DATA REPOSITORY: RADIATION DOSE DELIVERED:
== END 2024-07-13 03:14 ==
LOC: DI 02:54
PROVIDERS: PCP Nurse Practitioner Adult Health; Visit Provider Podiatrist
DX: M25.572 Pain in left ankle and joints of left foot
CPT/HCPCS: 20605; 73610

== ENCOUNTER → 2024-08-10 10:47 | Outpatient (BNVA) | payer MEDICARE, BC, SELFPAY | PROVIDERS: PCP Nurse Practitioner Adult Health; Referring Provider Nurse Practitioner Adult Health; Visit Provider Podiatrist | DX: M25.572 Pain in left ankle and joints of left foot (principal); M19.072 Primary osteoarthritis, left ankle and foot; G61.81 Chronic inflammatory demyelinating polyneuritis | CPT/HCPCS: 20605; J0702; J1100 ==

== ENCOUNTER 2024-08-24 11:15 | Outpatient (CLI) | payer MEDICARE, BC, SELFPAY ==
[2024-08-24 10:05] LABS: HCT 52.4 % (40.0-50.0); HGB 17.6 g/dL (13.5-17.5); MCH 33.3 pg (27.0-33.0); MCHC 33.6 % (32.0-36.0); MCV 99 fL (80-95); MPV 9.1 fL (8.0-11.0); Platelet Count 218 10^3/uL (130-400); RBC 5.29 10^6/uL (4.36-5.78); RDW 13.9 % (11.8-14.1); RDW-SD 51.1 fL; Reticulocyte 2.1 % (0.5-2.4); WBC 5.72 10^3/uL (4.4-10.8)
[2024-08-24 10:14] LABS: Hemoglobin A1C 5.1 % (<5.7)
[2024-08-24 10:48] LABS: Iron 274 ug/dL (65-175); Total Iron Binding Capacity 295 ug/dL (250-450); Transferrin Sat 93 % (20-55)
[2024-08-24 10:58] LABS: ALT 28 U/L (16-63); AST 22 U/L (15-37); Albumin 3.7 g/dL (3.4-5.0); Alkaline Phosphatase 81 U/L (46-116); Anion Gap 2.4 mmol/L (3-11); BUN 12 mg/dL (7-18); CO2 33.6 mmol/L (21.0-32.0); CREATININE 0.8 mg/dL (0.70-1.30); Calcium 9.3 mg/dL (8.5-10.1); Calculated LDL 110 mg/dL (<100); Chloride 106 mmol/L (98-107); Cholesterol 217 mg/dL (<200); Ferritin 471 ng/mL (26-388); Folate 10.7 ng/mL (8.6-20.0); Glucose 121 mg/dL (74-106); HDL Cholesterol 91 mg/dL (>or=40); Potassium 4.1 mmol/L (3.5-5.1); Sodium 142 mmol/L (136-145); Total Protein 6.5 g/dL (6.4-8.2); Triglyceride 81 mg/dL (<150); Vitamin B12 > 2000 pg/mL (193-986)
[2024-08-25 09:43] LABS: Prealbumin 25 mg/dL (20-40); Transferrin 227 mg/dL (201-352)
[2024-08-29 10:13] LABS: Thiamine (Vitamin B1), WB 260 nmol/L (70-180)
== END 2024-08-24 11:16 | disposition home or self-care (01) ==
LOC: LBO 11:15
PROVIDERS: PCP Nurse Practitioner Adult Health; Visit Provider Nurse Practitioner Adult Health
DX: R79.89 Other specified abnormal findings of blood chemistry (principal); E87.1 Hypo-osmolality and hyponatremia; Z13.220 Encounter for screening for lipoid disorders; Z13.1 Encounter for screening for diabetes mellitus; D64.9 Anemia, unspecified; Z72.89 Other problems related to lifestyle; E53.8 Deficiency of other specified B group vitamins; E51.9 Thiamine deficiency, unspecified; R73.01 Impaired fasting glucose
CPT/HCPCS: 36415; 80053; 80061; 85027; 82607; 82728; 82746; 83036; 83540; 83550; 84134; 84425; 84466; 85045

== ENCOUNTER 2024-10-23 02:00 | Outpatient (RCR) | payer MEDICARE, BC, SELFPAY ==
[2024-10-23 10:19] VITALS: BP 139/85; PULSE 78; RESP 22; TEMP 36.3; O2SAT 97
[2024-10-23] MEDS: riTUXimab-PVVR 500 MG in Normal Saline 200 ML 62.5 MG IVPB (10:20)
[2024-10-23] MEDS: diphenhydrAMINE 50 MG/ML VIAL IVP (10:24)
[2024-10-23] MEDS: Normal Saline Flush 5 ML SYR IVP (10:25)
[2024-10-23] MEDS: methylPREDNISolone SUCC 125 MG VIAL IVP (10:25)
[2024-10-23] MEDS: Acetaminophen 325 MG TAB 650 MG PO (10:25)
[2024-10-23 11:00] VITALS: BP 127/77; PULSE 74; RESP 20; TEMP 36.6; O2SAT 97
[2024-10-23 11:19] LABS: Abs Immature Grans 0.08 10^3/uL (0.0-0.06); Absolute Basophil Count 0.06 10^3/uL (0.0-0.2); Absolute Eosinophil Count 0.09 10^3/uL (0.0-0.7); Absolute Lymphocyte Count 1.35 10^3/uL (1.2-3.4); Absolute Monocyte Count 0.96 10^3/uL (0.1-0.8); Absolute Neutrophil Count 4.69 10^3/uL (1.2-6.7); Basophils % 0.8 %; Eosinophils % 1.2 %; HCT 47.6 % (40.0-50.0); HGB 16.3 g/dL (13.5-17.5); Immature Grans % 1.1 %; Lymphocytes % 18.7 %; MCHC 34.2 % (32.0-36.0); MCV 99 fL (80-95); MPV 9.7 fL (8.0-11.0); Monocytes % 13.3 %; Neutrophils % 64.9 %; Platelet Count 248 10^3/uL (130-400); RDW 13.5 % (11.8-14.1); RDW-SD 49.1 fL; WBC 7.23 10^3/uL (4.4-10.8)
[2024-10-23 11:29] VITALS: BP 139/87; PULSE 74; RESP 22; TEMP 36.4; O2SAT 95
[2024-10-23 11:49] LABS: ALT 25 U/L (16-63); AST 23 U/L (15-37); Albumin 3.8 g/dL (3.4-5.0); Alkaline Phosphatase 80 U/L (46-116); Anion Gap 8.2 mmol/L (3-11); BUN 5 mg/dL (7-18); Bilirubin, Total 1.3 mg/dL (0.2-1.0); CO2 26.8 mmol/L (21.0-32.0); CREATININE 0.8 mg/dL (0.70-1.30); Calcium 8.8 mg/dL (8.5-10.1); Chloride 99 mmol/L (98-107); Glucose 116 mg/dL (74-106); Potassium 3.9 mmol/L (3.5-5.1); Sodium 134 mmol/L (136-145); Total Protein 6.2 g/dL (6.4-8.2)
[2024-10-23 12:00] VITALS: BP 136/87; PULSE 70; RESP 22; TEMP 36.4; O2SAT 95
[2024-10-23 12:29] VITALS: BP 148/91; PULSE 82; RESP 22; TEMP 36.4; O2SAT 95
[2024-10-23 13:02] VITALS: BP 149/80; PULSE 84; RESP 21; TEMP 36.4; O2SAT 94
[2024-10-24 08:40] LABS: IgA 104 mg/dL (85-499); IgG 524 mg/dL (610-1616); IgM 31 mg/dL (35-242)
[2024-10-24 17:08] LABS: CD19 <1 % (6-24); CD20 <1 % (6-24)
== END 2024-11-18 23:59 | disposition home or self-care (01) ==
LOC: INF 02:00
PROVIDERS: PCP Nurse Practitioner Adult Health; Visit Provider Psychiatry & Neurology Neurology
DX: G61.81 Chronic inflammatory demyelinating polyneuritis (principal)
CPT/HCPCS: 80053; 82784; 88184; 88185; 96365; 96366; 96374; 85025; J1200; J2919; Q5119

== ENCOUNTER 2024-11-30 12:08 | Outpatient (CLI) | payer MEDICARE, BC, SELFPAY ==
--- NOTE | 2024-11-30 12:33 | DI.RAD_ITS ---
Exam(s) XR KNEE LT 3V AP,LAT,JOSUE EXAM: XR KNEE LT 3V AP,LAT,JOSUE CLINICAL HISTORY: M25.562 Pain in LT knee, knee pain, left, from fall. TECHNIQUE: 2D digital imaging was performed of the left knee. Three images were obtained. AP, lateral and PA tunnel views were obtained. COMPARISON: No exams were available for comparison FINDINGS: BONES: No acute fracture is present. No bony destructive lesion is seen. JOINTS: The knee is normally aligned. No joint effusion is seen. No loose body. SOFT TISSUE: Normal. IMPRESSION: No acute fracture or dislocation is present. DATA REPOSITORY: RADIATION DOSE DELIVERED:
== END 2024-11-30 12:28 ==
LOC: DI 12:09
PROVIDERS: PCP Nurse Practitioner Adult Health; Visit Provider Family Medicine
DX: M25.562 Pain in left knee (principal)
CPT/HCPCS: 73562

== ENCOUNTER → 2024-12-26 10:16 | Outpatient (BNVA) | payer MEDICARE, BC, SELFPAY | PROVIDERS: PCP Nurse Practitioner Adult Health; Visit Provider Psychiatry & Neurology Neurology | DX: R27.0 Ataxia, unspecified (principal); G61.81 Chronic inflammatory demyelinating polyneuritis; R20.2 Paresthesia of skin | CPT/HCPCS: 99214 ==

== ENCOUNTER 2025-03-24 06:05 | Emergency (ER) | payer MEDICARE, BC, SELFPAY ==
[2025-03-24 06:12] VITALS: BP 177/93; PULSE 101; RESP 18; TEMP 36.6; O2SAT 98
[2025-03-24 07:08] VITALS: BP 146/82; PULSE 93; RESP 18; TEMP 36.8; O2SAT 98
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
[2025-03-24 07:38] LABS: Abs Immature Grans 0.05 10^3/uL (0.0-0.06); HCT 47.0 % (40.0-50.0); HGB 16.2 g/dL (13.5-17.5); Immature Grans % 0.9 %; MCH 34.5 pg (27.0-33.0); MCHC 34.5 % (32.0-36.0); MCV 100 fL (80-95); MPV 8.9 fL (8.0-11.0); Platelet Count 220 10^3/uL (130-400); RBC 4.70 10^6/uL (4.36-5.78); RDW 13.3 % (11.8-14.1); RDW-SD 49.2 fL; WBC 5.77 10^3/uL (4.4-10.8)
[2025-03-24] MEDS: Lidocaine/Epinephri/Tetracaine Topical Gel 3 ML TP (07:42)
[2025-03-24] MEDS: Lidocaine 2% Multi-Dose W/EPI 1/100,000 20 ML VIAL (08:05)
[2025-03-24 08:08] LABS: ALT 52 U/L (16-63); AST 65 U/L (15-37); Albumin 3.5 g/dL (3.4-5.0); Alkaline Phosphatase 115 U/L (46-116); Anion Gap 10.1 mmol/L (3-11); BUN 7 mg/dL (7-18); Bilirubin, Total 0.7 mg/dL (0.2-1.0); CO2 27.9 mmol/L (21.0-32.0); Calcium 8.5 mg/dL (8.5-10.1); Chloride 104 mmol/L (98-107); Estimated GFR 104.49 (mL/min/1.73m2); Glucose 117 mg/dL (74-106); Potassium 3.9 mmol/L (3.5-5.1); Sodium 142 mmol/L (136-145); Total Protein 6.0 g/dL (6.4-8.2)
[2025-03-24 08:44] VITALS: BP 158/87; PULSE 91; RESP 16; TEMP 36.7; O2SAT 96
[2025-03-26 09:44] LABS: Lyme Ab w Rflx to Lyme Confirm Negative (Negative)
[2025-03-27 23:02] LABS: B. miyamotoi PCR Negative (Negative); Babesia divergens/MO-1 Negative (Negative); Ehrlichia muris eauclairensis Negative (Negative)
== END 2025-03-24 08:47 | disposition home or self-care (01) ==
PROVIDERS: Emergency Provider Student in an Organized Health Care Education/Training Program; PCP Nurse Practitioner Adult Health
DX: S80.12XA Contusion of left lower leg, initial encounter (principal); X58.XXXA Exposure to other specified factors, initial encounter
CPT/HCPCS: 10140; 99284; 99283; 36415; 76882; 80053; 87798; 85025; 86618; J2004

== ENCOUNTER 2025-04-25 12:14 | Outpatient (CLI) | payer MEDICARE, BC, SELFPAY ==
[2025-04-26 15:02] LABS: CD19 <1 % (6-24); CD20 <1 % (6-24)
== END 2025-04-25 12:15 | disposition home or self-care (01) ==
LOC: LBO 12:14
PROVIDERS: PCP Nurse Practitioner Adult Health; Visit Provider Psychiatry & Neurology Neurology
DX: G61.81 Chronic inflammatory demyelinating polyneuritis (principal)
CPT/HCPCS: 36415; 88184; 88185